=== PATIENT | male | born 1930 | race Caucasian/White ===

== ENCOUNTER 2016-02-19 20:18 | Inpatient (IN) | payer MEDICARE, BC ==
[2016-02-19] MEDS ORDERED: SODIUM CHLORIDE 0.9% 1,000 ML IV STA (20:23)
[2016-02-19] MEDS ORDERED: SODIUM CHLORIDE 0.9% 500 ML IV STA (20:23)
--- NOTE | 2016-02-19 20:39 | ED ---
General Adult HPI - General Source: patient, EMS, RN notes reviewed, old records reviewed Mode of arrival: EMS <Eliud Medel - Last Filed: 02/19/16 20:38> <Rico Gann - Last Filed: 02/20/16 01:16> - General Chief complaint: Abdominal Pain Stated complaint: Renal Failure Time Seen by Provider: 02/19/16 20:23 - History of Present Illness Initial comments: This is an 85-year-old male here for evaluation. This patient does reevaluation of weakness. Severe abdominal pain. Elevated blood pressure etc. Patient's a transfer patient from [facility] for evaluation of renal failure secondary to prostate enlargement causing urinary retention, patient did have 3 L or so out [place] prior prior facility. Patient coming here in no acute distress, feeling well (Eliud Medel) - Related Data Home Medications Medication Instructions Recorded Confirmed Ascorbic Acid [Vitamin C] 1,000 mg PO DAILY 02/19/16 02/19/16 Aspirin 325 mg PO DAILY 02/19/16 02/19/16 Calcium Carbonate [Tums] 500 mg PO DAILY 02/19/16 02/19/16 Ciprofloxacin HCl [Cipro] 500 mg PO Q12HR 02/19/16 02/19/16 Isosorbide Mononitrate ER [Imdur] 60 mg PO DAILY 02/19/16 02/19/16 Lovastatin [Mevacor] 10 mg PO DAILY 02/19/16 02/19/16 Nitroglycerin Sl Tabs [Nitrostat] 0.4 mg SUBLINGUAL Q5M PRN 02/19/16 02/19/16 Omeprazole 20 mg PO DAILY 02/19/16 02/19/16 Oxybutynin Chloride [Ditropan XL] 10 mg PO DAILY 02/19/16 02/19/16 Tamsulosin HCl [Flomax] 0.4 mg PO DAILY 02/19/16 02/19/16 Theophylline Anhydrous 400 mg PO DAILY 02/19/16 02/19/16 [Theophylline] Warfarin Sodium [Coumadin] 6 mg PO DAILY 02/19/16 02/19/16 Allergies Allergy/AdvReac Type Severity Reaction Status Date / Time atenolol Allergy Unknown Verified 02/19/16 20:47 diltiazem Allergy Unknown Verified 02/19/16 20:47 enalapril Allergy Unknown Verified 02/19/16 20:47 metoprolol [From Lopressor] Allergy Unknown Verified 02/19/16 20:47 Review of Systems ROS Other: All systems not noted in ROS Statement are negative. <Eliud Medel - Last Filed: 02/19/16 20:38> ROS Other: All systems not noted in ROS Statement are negative. <Rico Gann - Last Filed: 02/20/16 01:16> ROS Statement: Those systems with pertinent positive or pertinent negative responses have been documented in the HPI. General Exam General appearance: alert, in no apparent distress Head exam: Present: atraumatic, normocephalic, normal inspection Eye exam: Present: normal appearance, PERRL, EOMI. Absent: scleral icterus, conjunctival injection, periorbital swelling ENT exam: Present: normal exam, mucous membranes moist Neck exam: Present: normal inspection. Absent: tenderness, meningismus, lymphadenopathy Respiratory exam: Present: normal lung sounds bilaterally. Absent: respiratory distress, wheezes, rales, rhonchi, stridor Cardiovascular Exam: Present: regular rate, normal rhythm, normal heart sounds. Absent: systolic murmur, diastolic murmur, rubs, gallop, clicks GI/Abdominal exam: Present: soft, normal bowel sounds. Absent: distended, tenderness, guarding, rebound, rigid Extremities exam: Present: normal inspection, full ROM, normal capillary refill. Absent: tenderness, pedal edema, joint swelling, calf tenderness Back exam: Present: normal inspection Neurological exam: Present: alert, oriented X3, CN II-XII intact Psychiatric exam: Present: normal affect, normal mood Skin exam: Present: warm, dry, intact, normal color. Absent: rash <Eliud Medel - Last Filed: 02/19/16 20:38> Course <Eliud Medel - Last Filed: 02/19/16 20:38> <Rico Gann - Last Filed: 02/20/16 01:16> Vital Signs 02/19/16 02/19/16 02/19/16 20:25 21:43 22:32 Temperature Pulse Rate 80 82 82 Respiratory 16 18 16 Rate Blood Pressure 108/60 109/77 114/68 O2 Sat by Pulse 98 98 Oximetry 02/19/16 02/20/16 02/20/16 23:56 00:42 00:58 Temperature 97.3 F L Pulse Rate 84 81 Respiratory 16 18 Rate Blood Pressure 98/54 94/50 100/55 O2 Sat by Pulse 96 93 L Oximetry Agents imaging studies were reviewed from [facility] chest x-ray showed surgical changes with cardiomegaly and mild cephalization of the pulmonary vessel is present in him a CT abdomen was also he reviewed it with CT abdomen and pelvis was no free air under the diaphragm no acute intra-abdominal pathology was identified he status post cholecystectomy and no stones in the ureter or hydronephrosis noticed that to 5.5 mm focus of the center of high density in the left kidney and a large hiatal hernia noticed, noticed some degenerative changes in her lower lumbar spine (Rico Gann) - Reevaluation(s) Reevaluation #1: 02/19/16 20:39 Woke with transient physicianAsif paperwork overlooked (Eliud Medel) Medical Decision Making <Eliud Medel - Last Filed: 02/19/16 20:38> - Lab Data Result diagrams: 02/19/16 20:36 02/19/16 20:36 <Rico Gann - Last Filed: 02/20/16 01:16> - Medical Decision Making 85 male here for evaluation of post obstruction renal failure, symptoms improved , patient is fully place and can be discharged home (Eliud Medel) - Lab Data Lab Results 02/19/16 02/19/16 02/19/16 Range/Units 20:36 20:36 20:36 WBC 3.2 L (3.8-10.6) k/uL RBC 3.93 L (4.30-5.90) m/uL Hgb 12.0 L (13.0-17.5) gm/dL Hct 36.5 L (39.0-53.0) % MCV 92.9 (80.0-100.0) fL MCH 30.6 (25.0-35.0) pg MCHC 33.0 (31.0-37.0) g/dL RDW 13.5 (11.5-15.5) % Plt Count 113 L (150-450) k/uL Neutrophils % 67 % Lymphocytes % 19 % Monocytes % 10 % Eosinophils % 2 % Basophils % 1 % Neutrophils # 2.2 (1.3-7.7) k/uL Lymphocytes # 0.6 L (1.0-4.8) k/uL Monocytes # 0.3 (0-1.0) k/uL Eosinophils # 0.1 (0-0.7) k/uL Basophils # 0.0 (0-0.2) k/uL PT (9.0-12.0) sec INR (<1.1) Sodium 142 (137-145) mmol/L Potassium 4.1 (3.5-5.1) mmol/L Chloride 112 H (98-107) mmol/L Carbon Dioxide 17 L (22-30) mmol/L Anion Gap 13 mmol/L BUN 32 H (9-20) mg/dL Creatinine 2.19 H (0.66-1.25) mg/dL Est GFR (MDRD) Af Amer 35 (>60 ml/min/1.73 sqM) Est GFR (MDRD) Non-Af 29 (>60 ml/min/1.73 sqM) Glucose 94 (74-99) mg/dL Calcium 9.0 (8.4-10.2) mg/dL Phosphorus 3.7 (2.5-4.5) mg/dL Magnesium 2.1 (1.6-2.3) mg/dL Total Bilirubin 0.7 (0.2-1.3) mg/dL AST 25 (17-59) U/L ALT 32 (21-72) U/L Alkaline Phosphatase 64 (38-126) U/L Total Protein 5.8 L (6.3-8.2) g/dL Albumin 3.3 L (3.5-5.0) g/dL Urine Color Yellow Urine Appearance Clear (Clear) Urine pH 5.0 (5.0-8.0) Ur Specific Stanley 1.010 (1.001-1.035) Urine Protein 1+ H (Negative) Urine Glucose (UA) Negative (Negative) Urine Ketones 1+ H (Negative) Urine Blood Moderate H (Negative) Urine Nitrate Negative (Negative) Urine Bilirubin Negative (Negative) Urine Urobilinogen <2.0 (<2.0) mg/dL Ur Leukocyte Esterase Trace H (Negative) Urine RBC 138 H (0-5) /hpf Urine WBC 9 H (0-5) /hpf Ur Squamous Epith Cells 1 (0-4) /hpf Urine Bacteria Rare H (None) /hpf Urine Mucus Rare H (None) /hpf Urine Yeast (Budding) Rare H (None) /hpf 02/19/16 Range/Units 20:36 WBC (3.8-10.6) k/uL RBC (4.30-5.90) m/uL Hgb (13.0-17.5) gm/dL Hct (39.0-53.0) % MCV (80.0-100.0) fL MCH (25.0-35.0) pg MCHC (31.0-37.0) g/dL RDW (11.5-15.5) % Plt Count (150-450) k/uL Neutrophils % % Lymphocytes % % Monocytes % % Eosinophils % % Basophils % % Neutrophils # (1.3-7.7) k/uL Lymphocytes # (1.0-4.8) k/uL Monocytes # (0-1.0) k/uL Eosinophils # (0-0.7) k/uL Basophils # (0-0.2) k/uL PT 45.0 H (9.0-12.0) sec INR 4.6 (<1.1) Sodium (137-145) mmol/L Potassium (3.5-5.1) mmol/L Chloride (98-107) mmol/L Carbon Dioxide (22-30) mmol/L Anion Gap mmol/L BUN (9-20) mg/dL Creatinine (0.66-1.25) mg/dL Est GFR (MDRD) Af Amer (>60 ml/min/1.73 sqM) Est GFR (MDRD) Non-Af (>60 ml/min/1.73 sqM) Glucose (74-99) mg/dL Calcium (8.4-10.2) mg/dL Phosphorus (2.5-4.5) mg/dL Magnesium (1.6-2.3) mg/dL Total Bilirubin (0.2-1.3) mg/dL AST (17-59) U/L ALT (21-72) U/L Alkaline Phosphatase (38-126) U/L Total Protein (6.3-8.2) g/dL Albumin (3.5-5.0) g/dL Urine Color Urine Appearance (Clear) Urine pH (5.0-8.0) Ur Specific Stanley (1.001-1.035) Urine Protein (Negative) Urine Glucose (UA) (Negative) Urine Ketones (Negative) Urine Blood (Negative) Urine Nitrate (Negative) Urine Bilirubin (Negative) Urine Urobilinogen (<2.0) mg/dL Ur Leukocyte Esterase (Negative) Urine RBC (0-5) /hpf Urine WBC (0-5) /hpf Ur Squamous Epith Cells (0-4) /hpf Urine Bacteria (None) /hpf Urine Mucus (None) /hpf Urine Yeast (Budding) (None) /hpf Critical Care Time <Eliud Medel - Last Filed: 02/19/16 20:38> Total Critical Care Time: 35 <Rico Gann - Last Filed: 02/20/16 01:16> Critical Care Time: AARON is in transfer from [facility] and his labs well after midnight noticed that he has renal failure failure he has a quite a bit of hematuria and I noticed some metabolic acidosis his INR is quite elevated is 4.6 and his blood pressure was 90 systolic considering that the middle OF fluid bolus and an examination he was slightly diffusely tender in the lower abdomen did do a CT of abdomen without contrast since his creatinine is high and also Benadryl chest x-rays and computed tomography scan needs some more fluid resuscitation over to make sure he is not in any kind of congestive heart failure and obviously he is can be admission with the nephrology consult and he will go under Dr. Novak's service (Rico Gann) Disposition <Eliud Medel - Last Filed: 02/19/16 20:38> <Rico Gann - Last Filed: 02/20/16 01:16> Clinical Impression: Abdominal pain, Renal failure, Hematuria, Metabolic acidosis, Hypertension Disposition: ADMITTED IP TO THIS HOSP Referrals: Bhaskar Peña DO [Primary Care Provider] - 1-2 days
[2016-02-19 20:55] LABS: Basophils % (A) 1 %; CH 31.4; Eosinophils # (A) 0.1 k/uL (0-0.7); Eosinophils % (A) 2 %; HCT 36.5 % (39.0-53.0); HDW 2.98; Luc # (Auto) 0.05; Luc % (Auto) 2; Lymphocytes # (A) 0.6 k/uL (1.0-4.8); Lymphocytes % (A) 19 %; MCH 30.6 pg (25.0-35.0); MCV 92.9 fL (80.0-100.0); Mean Platelet Volume 9.3; Monocytes # (A) 0.3 k/uL (0-1.0); Monocytes % (A) 10 %; Neutrophils # (A) 2.2 k/uL (1.3-7.7); Neutrophils % (A) 67 %; RBC 3.93 m/uL (4.30-5.90); RDW 13.5 % (11.5-15.5); WBC 3.2 k/uL (3.8-10.6)
[2016-02-19 20:59] LABS: Appearance,Urine Clear (Clear); Bacteria,Urine Rare /hpf; Bilirubin,Urine Negative (Negative); Glucose,Urine (UA) Negative (Negative); Ketones,Urine 1+ (Negative); Leukocyte Esterase,Urine Trace (Negative); Mucus,Urine Rare /hpf; Nitrite,Urine Negative (Negative); Particle Count 1702; Protein,Urine 1+ (Negative); RBC,Urine 138 /hpf (0-5); Squamous Epithelial Cell,Urine 1 /hpf (0-4); UA Billing (MACRO vs. MICRO) MICRO; Urobilinogen,Urine <2.0 mg/dL (<2.0); WBC,Urine 9 /hpf (0-5)
[2016-02-19 21:11] LABS: Magnesium 2.1 mg/dL (1.6-2.3); Phosphorous 3.7 mg/dL (2.5-4.5); Potassium 4.1 mmol/L (3.5-5.1); Total Bilirubin 0.7 mg/dL (0.2-1.3); Total Protein 5.8 g/dL (6.3-8.2)
[2016-02-19 23:57] LABS: INR 4.6 (<1.1)
[2016-02-20] MEDS: SODIUM CHLORIDE 0.9% 1,000 ML IV SCH ×3 (01:17→20:01)
[2016-02-20] MEDS ORDERED: ONDANSETRON 4 MG/2 ML VIAL IVP PRN (01:46)
[2016-02-20] MEDS ORDERED: NALOXONE 0.4 MG/ML 1 ML VIAL IV PRN (01:46)
[2016-02-20] MEDS ORDERED: NITROGLYCERIN SL TABS 0.4 MG TAB SUBLINGUAL PRN (01:55)
[2016-02-20 03:04] LABS: VBG PH 7.37 (7.31-7.41)
[2016-02-20 03:56] VITALS: BMI 28.8
[2016-02-20] MEDS ORDERED: TAMSULOSIN 0.4 MG CAP.ER.24H PO SCH (09:00)
[2016-02-20] MEDS ORDERED: OXYBUTYNIN 10 MG TAB.ER.24 PO SCH (09:00)
[2016-02-20] MEDS: ASPIRIN 325 MG TAB PO SCH (09:16)
[2016-02-20] MEDS: ISOSORBIDE MONONITRATE ER 60 MG TAB.ER.24H PO SCH (09:18)
[2016-02-20] MEDS: ASCORBIC ACID 500 MG TAB PO SCH (09:18)
[2016-02-20] MEDS: PANTOPRAZOLE 40 MG TABLET PO SCH (09:18)
[2016-02-20] MEDS: ATORVASTATIN 10 MG TAB PO SCH (09:18)
[2016-02-20] MEDS: THEOPHYLLINE 24 HOUR 400 MG CAP.ER.24H PO SCH (09:18)
[2016-02-20] MEDS: CALCIUM CARBONATE 500 MG CHEWABLE PO SCH (09:18)
--- NOTE | 2016-02-20 10:21 | US ---
EXAMINATION TYPE: US carotid duplex BILAT DATE OF EXAM: 02/20/2016 10:05 AM COMPARISON: NONE CLINICAL HISTORY: Dizziness. EXAM MEASUREMENTS: RIGHT: Peak Systolic Velocity (PSV) cm/sec ----- Right CCA: 59.5 ----- Right ICA: 54.5 ----- Right ECA: 71.8 ICA/CCA ratio: 0.9 RIGHT: End Diastole cm/sec ----- Right CCA: 10.0 ----- Right ICA: 13.6 ----- Right ECA: 0.0 LEFT: Peak Systolic Velocity (PSV) cm/sec ----- Left CCA: 59.4 ----- Left ICA: 56.1 ----- Left ECA: 56.0 ICA/CCA ratio: 0.9 LEFT: End Diastole cm/sec ----- Left CCA: 13.5 ----- Left ICA: 25.3 ----- Left ECA: 0.0 VERTEBRALS (direction of flow): Right Vertebral: Antegrade Left Vertebral: Antegrade TECHNOLOGIST IMPRESSION: No significant stenosis seen, exam somewhat technically difficult due to pa tients SOB Grayscale images show mild eccentric plaque at bilateral carotid bulbs. Velocity measurements and rat ios in visualized portion of both internal carotid arteries is within normal limits. IMPRESSION: No hemodynamically significant stenosis identified in either internal carotid artery
--- NOTE | 2016-02-20 10:23 | US ---
EXAMINATION TYPE: US renals and bladder DATE OF EXAM: 02/20/2016 9:48 AM COMPARISON: Outside CT abdomen and pelvis from one day earlier CLINICAL HISTORY: Elevated Creatinine . EXAM MEASUREMENTS: Right Kidney: 9.5 x 3.9 x 4.8 Left Kidney: 10.7 x 4.0 x 4.8 Post Void Residual Volume: N/A ANATOMY: TECHNOLOGIST IMPRESSION: Patient SOB and unable to hold his breath making exam somewhat technically difficult and limited Right Kidney: No hydronephrosis or masses seen Left Kidney: No hydronephrosis or masses seen Bladder: Tapia catheter is within bladder making evaluation suboptimal. There is no evidence for hydronephrosis at this point in time. No masses are identified in either kid brisa on images saved. IMPRESSION: No hydronephrosis is evident bilaterally on ultrasound. Normal Values: Renal Length = 9 - 12cm Bladder Wall: < 0.3cm
--- NOTE | 2016-02-20 12:37 | ECHOF ---
Referral Reason:lv fxn MEASUREMENTS -------- HEIGHT: 170.2 cm WEIGHT: 83.5 kg BP: 107/78 RVIDd: 2.9 cm (< 3.3) IVSd: 1.6 cm (0.6 - 1.1) LVIDd: 4.8 cm (3.9 - 5.3) LVPWd: 1.4 cm (0.6 - 1.1) IVSs: 2.1 cm LVIDs: 3.3 cm LVPWs: 1.6 cm LA Diam: 4.0 cm (2.7 - 3.8) LAESV Index (A-L): 53.08 ml/m Ao Diam: 3.6 cm (2.0 - 3.7) MV EXCURSION: 15.965 mm (> 18.000) MV EF SLOPE: 85 mm/s (70 - 150) EPSS: 1.1 cm AV maxP.09 mmHg AV meanP.64 mmHg RAP: 5.00 mmHg RVSP: 17.25 mmHg FINDINGS -------- This was a technically adequate study. The left ventricular size is normal. There is moderate concentric left ventricular hypertrophy. Overall left ventricular systolic function is mild-moderately impaired with, an EF between 40 - 45 %. The right ventricle is normal in size. LA is severely dilated >40 ml/m2 The right atrium is normal in size. Aortic valve is trileaflet and is severely thickened. There is moderate aortic stenosis present. Peak/mean gradient across the Aortic Valve is 51.09mmHg / 36.64mmHg. The mitral valve leaflets are mildly thickened. Mild mitral annular calcification present. Mild mitral regurgitation is present. Mild tricuspid regurgitation present. Right ventricular systolic pressure is normal at < 35 mmHg. The pulmonic valve was not well visualized. The aortic root size is normal. There is no pericardial effusion. CONCLUSIONS -------- 1. This was a technically adequate study. 2. Peak/mean gradient across the Aortic Valve is 51.09mmHg / 36.64mmHg. 3. The mitral valve leaflets are mildly thickened. 4. Mild mitral annular calcification present. 5. Mild mitral regurgitation is present. 6. Mild tricuspid regurgitation present. 7. Right ventricular systolic pressure is normal at < 35 mmHg. 8. The pulmonic valve was not well visualized. 9. The aortic root size is normal. 10. There is no pericardial effusion. 11. The left ventricular size is normal. 12. There is moderate concentric left ventricular hypertrophy. 13. Overall left ventricular systolic function is mild-moderately impaired with, an EF between 40 - 45 %. 14. The right ventricle is normal in size. 15. LA is severely dilated >40 ml/m2 16. The right atrium is normal in size. 17. Aortic valve is trileaflet and is severely thickened. 18. There is moderate aortic stenosis present. MEDICAL CLERK: Silvia Powell RDCS
--- NOTE | 2016-02-20 12:41 | HP ---
DATE OF ADMISSION: CHIEF COMPLAINT: Obstructive uropathy and renal failure. HISTORY OF PRESENT ILLNESS: This is the first admission for this 85-year-old white male. He started to develop what he describes as "edema" went to the hospital where he was found to have distended bladder. Tapia catheter was ( ) and apparently a large amount of urine was drained. He was then sent here. Apparently his renal function is abnormal. He is awake, alert and oriented. REVIEW OF SYSTEMS: He denies any headaches, neurologic deficits, CVAs, TIAs, change in vision or hearing, cough, hemoptysis, sputum production, orthopnea, PND, murmurs, rheumatic fever, heart disease, abdominal pain, nausea, vomiting, hematemesis, melena, hematochezia, hematuria, etc. Past medical history, family history and personal and social histories reveal that he has had pulmonary emboli on both sides in the past. He is apparently on Coumadin. Surgically, he had open-heart surgery. He has had bilateral inguinal herniorrhaphies. He does not smoke. PHYSICAL EXAMINATION: Blood pressure is 148/88 with a pulse of 104, respirations of 39. He is afebrile. GENERAL: He appears to be well developed, well nourished, in no distress. Skin color is normal. Skin is warm and dry. Lymph nodes are not enlarged. Head, ears, eyes, nose, mouth, and throat were normal. Neck veins not distended. Thyroid is not enlarged. Chest is fairly clear. Cardiac exam demonstrates cardiac murmur ( ) systole. ABDOMEN: Soft and nontender without any visceromegaly or masses. EXTREMITIES: Normal. Tapia catheter is in place. IMPRESSION: 1. Obstructive uropathy. 2. Secondary renal failure. 3. History of pulmonary emboli. 4. Coronary artery disease. 5. Cardiac murmur. PLAN: 1. Bed rest. 2. IV fluids. 3. Follow renal function to see if it improves after decompression of the bladder.
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
[2016-02-20] MEDS: TAMSULOSIN 0.4 MG CAP.ER.24H PO SCH (20:01)
[2016-02-20] MEDS: SODIUM BICARBONATE TAB 650 MG TAB PO SCH ×2 (20:01→23:00)
[2016-02-21] MEDS: SODIUM CHLORIDE 0.9% 1,000 ML IV SCH (06:05)
[2016-02-21 08:04] LABS: Basophils % (A) 1 %; CH 30.8; CHCM 32.6; Eosinophils # (A) 0.3 k/uL (0-0.7); Eosinophils % (A) 7 %; HCT 38.9 % (39.0-53.0); HDW 3.04; HGB 12.7 gm/dL (13.0-17.5); Luc % (Auto) 3; Lymphocytes # (A) 1.2 k/uL (1.0-4.8); Lymphocytes % (A) 31 %; MCH 30.8 pg (25.0-35.0); MCHC 32.5 g/dL (31.0-37.0); MCV 94.8 fL (80.0-100.0); Mean Platelet Volume 8.2; Monocytes # (A) 0.3 k/uL (0-1.0); Monocytes % (A) 7 %; Neutrophils % (A) 53 %; RDW 13.2 % (11.5-15.5); WBC 3.9 k/uL (3.8-10.6); WBC (Perox) 4.31
[2016-02-21] MEDS: ASCORBIC ACID 500 MG TAB PO SCH (08:34)
[2016-02-21] MEDS: PANTOPRAZOLE 40 MG TABLET PO SCH (08:34)
[2016-02-21] MEDS: ATORVASTATIN 10 MG TAB PO SCH (08:34)
[2016-02-21] MEDS: ASPIRIN 325 MG TAB PO SCH (08:34)
[2016-02-21] MEDS: CALCIUM CARBONATE 500 MG CHEWABLE PO SCH (08:35)
[2016-02-21] MEDS: ISOSORBIDE MONONITRATE ER 60 MG TAB.ER.24H PO SCH (08:35)
[2016-02-21] MEDS: SODIUM BICARBONATE TAB 650 MG TAB PO SCH ×4 (08:35→21:04)
[2016-02-21] MEDS: THEOPHYLLINE 24 HOUR 400 MG CAP.ER.24H PO SCH (08:35)
[2016-02-21] MEDS: TAMSULOSIN 0.4 MG CAP.ER.24H PO SCH ×2 (08:35→21:04)
[2016-02-21 08:36] LABS: Calcium 8.5 mg/dL (8.4-10.2); Potassium 4.2 mmol/L (3.5-5.1); Total Bilirubin 0.7 mg/dL (0.2-1.3); Total Protein 5.3 g/dL (6.3-8.2)
--- NOTE | 2016-02-21 11:27 | P.PN ---
Subjective The patient was seen in consultation yesterday for urine retention. This is large volume urine retention of 3 L. The patient has been having obstructive voiding symptoms for several months. He is placed on Flomax and then on ditropan by his urologist in [facility]. His creatinine has come down to 1.5. He is feeling better. The PSA is pending. He will need the catheter in for at least 10 days to 2 weeks before a voiding trial due to the large volume of urine retention. Patient understands this. I will see him in the office in about 10 days to 2 weeks for a voiding trial. The visiting nurse will remove the catheter prior to his office visit. Objective - Vital Signs Vital signs: Vital Signs Temp 97.5 F L 02/21/16 07:00 Pulse 96 02/21/16 07:00 Resp 20 02/21/16 07:00 BP 122/77 02/21/16 07:00 Pulse Ox 94 L 02/21/16 07:00 Intake & Output 02/20/16 02/21/16 02/21/16 18:59 06:59 18:59 Intake Total 800 Output Total 1100 Balance 800 -1100 Weight 90 kg Intake: IV 800 Sodium Chloride 0.9% 1, 800 000 ml @ 100 mls/hr IV . Q10H DAMIAN Rx#:[id number] Output: Urine 1100 Other: Voiding Method Indwelling Catheter Indwelling Catheter # Voids 1 - Labs CBC & Chem 7: 02/21/16 07:38 02/21/16 07:38 Labs: Abnormal Lab Results - Last 24 Hours (Table) 02/21/16 02/21/16 Range/Units 07:38 07:38 RBC 4.10 L (4.30-5.90) m/uL Hgb 12.7 L (13.0-17.5) gm/dL Hct 38.9 L (39.0-53.0) % Plt Count 114 L (150-450) k/uL Chloride 112 H (98-107) mmol/L Carbon Dioxide 19 L (22-30) mmol/L BUN 25 H (9-20) mg/dL Creatinine 1.53 H (0.66-1.25) mg/dL Total Protein 5.3 L (6.3-8.2) g/dL Albumin 3.1 L (3.5-5.0) g/dL
[2016-02-21] MEDS ORDERED: BISACODYL 5 MG TABLET.DR PO STA ×2 (12:23→12:24)
[2016-02-21] MEDS: DOCUSATE 100 MG CAP PO SCH ×2 (12:47→21:04)
[2016-02-21] MEDS: POLYETHYLENE GLYCOL 3350 17 GM POWD.PACK PO SCH (12:47)
--- NOTE | 2016-02-21 14:39 | PN ---
CHIEF COMPLAINT: Obstructive uropathy. HISTORY OF PRESENT ILLNESS: This gentleman is doing fairly well, but he got confused during the night and this is probably delirium. He is doing fine now. He has had no chest pain, chills, and abdominal pain, etc. PHYSICAL EXAM: The chest is clear and cardiac exam is normal and the abdomen is soft, nontender. The extremities are normal. He is a little bit short of breath. IMPRESSION: 1. Delirium. 2. Shortness of breath. 3. Constipation. 4. Obstructive uropathy. PLAN: 1. Treat for constipation. 2. Lab work looking for other etiologies of delirium.
[2016-02-21] MEDS ORDERED: LACTULOSE 20 GM/30 ML CUP PO ONE (15:05)
--- NOTE | 2016-02-21 16:43 | P.PN ---
Subjective This is a 85-year-old male seen in consultation because of obstructive nephropathy and acute kidney injury. He Had a Catheter Placed Is Urine Output Is Improving. He Continues to Feel Somewhat Cold but No Fever Chills No Nausea Vomiting Diarrhea Abdominal Pain. His Creatinine Is Improving and His Urine Output Is Fair. He Was Admitted with the Following; This is an 85-year-old male who was transferred from [facility] with obstructive nephropathy. He went there because of difficulty in urination and bladder distention. A [place] cathetersupposedly large amounts of urine were drained. He has been having problem with urination for the last 2-3 months and has been seeing a urologist outpatient. His had 2 doses of Cipro once 2015 and then more recently on 02/13/2016. He also claimed that he has been taking some Motrin because of pain in his lower abdomen. No fever chills although he felt somewhat cold and warm prior to that hospitalization. No nausea vomiting diarrhea is constipated Past medical history significant for hypertension in the past came off of medication may be 7-8 years ago. He also had coronary artery bypass graft about 11 years ago. No further chest pain. No history of diabetes. Is not aware of any kidney disease. Other than this he is also noted to have had multiple DVTs and PEs Objective - Vital Signs Vital signs: Vital Signs Temp 97.7 F 02/21/16 15:00 Pulse 95 02/21/16 15:00 Resp 18 02/21/16 15:00 BP 137/74 02/21/16 15:00 Pulse Ox 95 02/21/16 15:00 Intake & Output 02/20/16 02/21/16 02/21/16 18:59 06:59 18:59 Intake Total 800 Output Total 1100 600 Balance 800 -1100 -600 Weight 90 kg Intake: IV 800 Sodium Chloride 0.9% 1, 800 000 ml @ 100 mls/hr IV . Q10H DAMIAN Rx#:[id number] Output: Urine 1100 600 Other: Voiding Method Indwelling Catheter Indwelling Catheter # Voids 1 On exam patient is awake alert oriented comfortable HEENT examined no JVP neck is supple no facial asymmetry or lungs are clear to auscultation percussion good air entry bilaterally Heart sounds unremarkable no murmur rub gallop. Abdomen soft nontender no masses felt. Extremity exam reveals no edema Neurologically awake alert oriented. No focal motor deficits - Labs CBC & Chem 7: 02/21/16 07:38 02/21/16 07:38 Labs: Abnormal Lab Results - Last 24 Hours (Table) 02/21/16 02/21/16 Range/Units 07:38 07:38 RBC 4.10 L (4.30-5.90) m/uL Hgb 12.7 L (13.0-17.5) gm/dL Hct 38.9 L (39.0-53.0) % Plt Count 114 L (150-450) k/uL Chloride 112 H (98-107) mmol/L Carbon Dioxide 19 L (22-30) mmol/L BUN 25 H (9-20) mg/dL Creatinine 1.53 H (0.66-1.25) mg/dL Total Protein 5.3 L (6.3-8.2) g/dL Albumin 3.1 L (3.5-5.0) g/dL Assessment and Plan Plan: Impression. 1. Acute kidney injury secondary to obstructive nephropathy secondary to prostatism. Creatinine is 2.19 as of yesterday, and is down to 1.53 this morning 2. History of recurrent DVTs and PEs. Cause not clear. Patient was on Coumadin at home. Off of Coumadin but his PT/INR was 4.6 as of day before yesterday 02/19/2016 3. History of coronary artery bypass graft. 4. History of hypertension that needed medication for a few years and came off of medication may be 7 years ago. 5. Mild degree of non-gap metabolic acidosis secondary to acute kidney injury. His bicarb is up to 19 6. Constipation for more than a week has not responded to lactulose Dulcolax and Colace. Recommendation. We'll try mineral oil enema if in 2-3 hours he does not respond to the medication for his constipation. Redo PT/INR stat today and relayed this message to the primary physician regarding resumption of his and accommodation. Continue IV fluids. Normal saline at 100 and hour is sufficient. Continue sodium bicarb 650 4 times a day for his acidosis which is expected to improve in a few days
[2016-02-21 17:00] LABS: INR 3.1 (<1.1); Prothrombin Time 29.6 sec (9.0-12.0)
[2016-02-21] MEDS: ACETAMINOPHEN TAB 325 MG TAB PO PRN (22:00)
[2016-02-22] MEDS: ACETAMINOPHEN TAB 325 MG TAB PO PRN (05:44)
[2016-02-22 08:18] VITALS: BP 119/75; PULSE 89; RESP 18; TEMP 96.1
[2016-02-22] MEDS: ASCORBIC ACID 500 MG TAB PO SCH (08:24)
[2016-02-22] MEDS: ISOSORBIDE MONONITRATE ER 60 MG TAB.ER.24H PO SCH (08:24)
[2016-02-22] MEDS: PANTOPRAZOLE 40 MG TABLET PO SCH (08:24)
[2016-02-22] MEDS: ATORVASTATIN 10 MG TAB PO SCH (08:24)
[2016-02-22] MEDS: ASPIRIN 325 MG TAB PO SCH (08:24)
[2016-02-22] MEDS: CALCIUM CARBONATE 500 MG CHEWABLE PO SCH (08:24)
[2016-02-22] MEDS: DOCUSATE 100 MG CAP PO SCH (08:24)
[2016-02-22] MEDS: SODIUM BICARBONATE TAB 650 MG TAB PO SCH ×2 (08:25→13:24)
[2016-02-22] MEDS: THEOPHYLLINE 24 HOUR 400 MG CAP.ER.24H PO SCH (08:25)
[2016-02-22] MEDS: TAMSULOSIN 0.4 MG CAP.ER.24H PO SCH (08:25)
[2016-02-22] MEDS: POLYETHYLENE GLYCOL 3350 17 GM POWD.PACK PO SCH (08:27)
[2016-02-22 09:14] LABS: INR 2.2 (<1.1); Prothrombin Time 21.2 sec (9.0-12.0)
[2016-02-22 09:41] LABS: ALT 38 U/L (21-72); AST 31 U/L (17-59); Alkaline Phosphatase 80 U/L (38-126); Anion Gap 9 mmol/L; Blood Urea Nitrogen 16 mg/dL (9-20); Calcium 8.7 mg/dL (8.4-10.2); Carbon Dioxide 23 mmol/L (22-30); Chloride 109 mmol/L (98-107); Glucose 89 mg/dL (74-99); Non-African American GFR(MDRD) 51 (>60 ml/min/1.73 sqM); Potassium 4.2 mmol/L (3.5-5.1); Sodium 141 mmol/L (137-145); Total Bilirubin 0.8 mg/dL (0.2-1.3); Total Protein 5.8 g/dL (6.3-8.2)
--- NOTE | 2016-02-22 11:02 | P.DS ---
Providers Date of admission: 02/20/16 00:45 Expected date of discharge: 02/22/16 Attending physician: London Novak Consults: 02/20/16 01:46 Consult Physician Stat Consulting Provider: Cara Singh Consult Reason/Comments: Renal failure Do you want consulting provider notified?: Yes 02/20/16 12:17 Consult Physician Stat Consulting Provider: Perry Granados Consult Reason/Comments: bph Do you want consulting provider notified?: Yes Primary care physician: Bhaskar [facility] Course: 85-year-old male who was transferred from [facility] for evaluation of abdominal pain renal failure secondary to prostate enlargement causing urinary retention. Patient was transferred for the above-mentioned symptoms Rain catheter supposedly was inserted at the facility with a large amount urine drained. Patient reports having urinary retention for the past several months. Patient stated he did see a urologist in the outpatient setting in [facility]. Patient states he's had 2 doses of Cipro the last one in 2015 and more recently and 02/13/2016. He states he thought he was on the Cipro for urinary tract infection. Patient stated he had no fever chills. There was no nausea vomiting. Patient does complain of constipation. Patient was seen by nephrology and urology service. Patient was treated for acute kidney injury felt to be due to obstructive nephropathy. [place] to be secondary to prostatitis. Patient has a history reoccurring DVTs and PEs and was on Coumadin at home on Cipro. When patient was admitted the INR was elevated to 4. Coumadin was held. The urine culture was negative the creatinine on admission was 2.1 on the day of discharge was 1. Dr. Steele did see patient on consultation for the urinary retention. Patient has been having obstructive voiding symptoms per the past several months. Patient reportedly is placed on Flomax in the outpatient setting then on Ditropan by his urologist and the [facility]. Dr. Steele recommended the patient being placed on Flomax. And that the patient needed an indwelling Rain catheter for at least 2 weeks to be seen in the urologist's office in 10-2 weeks for a voiding trial in the visiting nurse can remove the Rain catheter prior to the office visit. This was discussed with the patient and the patient's son at the bedside. Patient was felt to be hemodynamically stable and appropriate proceed with a discharge to home Impression discharge diagnosis Present on admission acute kidney injury secondary to obstructive nephropathy due to prostatitis History reoccurring DVTs and PEs on Coumadin at home Present on admission coagulopathy Coumadin induced History of coronary artery disease prior coronary artery bypass grafting history of hypertension Mild degree of non-gap metabolic acidosis secondary to acute kidney injury Esophageal reflux Prostate disorder Present on admission acute urine retention secondary to BPH and ditropan Present on admission hematuria due to large volume urine retention aggravated by coagulopathy Coumadin induced Chronic physical debility Chronic constipation No evidence of a UTI urine culture negative The above dictated assessment and findings were discussed with dr novak Impression and the plan of care have been dictated as directed. Lisa Mccullough nurse practitioner acting as a scribe for dr novak. Plan - Discharge Summary New Discharge Prescriptions: Docusate [Colace] 100 mg PO BID #60 cap Tamsulosin [Flomax] 0.4 mg PO BID #60 cap.er.24h Discharge Medication List Ascorbic Acid [Vitamin C] 1,000 mg PO DAILY 02/19/16 [History] Aspirin 325 mg PO DAILY 02/19/16 [History] Calcium Carbonate [Tums] 500 mg PO DAILY 02/19/16 [History] Isosorbide Mononitrate ER [Imdur] 60 mg PO DAILY 02/19/16 [History] Nitroglycerin Sl Tabs [Nitrostat] 0.4 mg SUBLINGUAL Q5M PRN 02/19/16 [History] Omeprazole 20 mg PO DAILY 02/19/16 [History] Theophylline Anhydrous [Theophylline] 400 mg PO DAILY 02/19/16 [History] Warfarin Sodium [Coumadin] 6 mg PO DAILY 02/19/16 [History] Docusate [Colace] 100 mg PO BID #60 cap 02/22/16 [Rx] Sodium Bicarbonate Tab 650 mg PO QID #0 tab 02/22/16 [Rx] Tamsulosin [Flomax] 0.4 mg PO BID #60 cap.er.24h 02/22/16 [Rx] Follow up Appointment(s)/Referral(s): Bhaskar Peña DO [Primary Care Provider] - 1-2 days Geovany Steele MD [STAFF PHYSICIAN] - 2 Weeks (home care to [facility] on day of dr steele visit) Activity/Diet/Wound Care/Special Instructions: [facility] home care (#[phone]) Leave the indwelling Rain catheter in place the visiting nurse from the home care agency is to remove the Rain catheter 24 hours prior to follow-up visit with the urologist. Indwelling Rain catheter to be left in place for at least 2 weeks Discharge Disposition: HOME WITH HOME HEALTH SERVICES
--- NOTE | 2016-02-22 19:22 | PN ---
DATE OF SERVICE: 02/22/2016 CHIEF COMPLAINT: Renal failure and obstructive uropathy. HISTORY OF PRESENT ILLNESS: The gentleman is doing well and he has no problems and he can probably go home. PHYSICAL EXAMINATION: CHEST: Clear. CARDIAC: Normal. ABDOMEN: Soft, nontender. IMPRESSION: 1. Obstructive uropathy. 2. Benign prostatic hypertrophy. 3. Acute renal failure. PLAN: Possibly home today, and this will be arranged by the nurse practitioner.
== END 2016-02-22 14:41 | disposition home health service (06) | DRG 683 ==
LOC: EC 20:18 → 4MS4W 02-20 00:45
PROVIDERS: ADMIT Family Medicine; ATTEND Family Medicine
PROC: 0T9B70Z Drainage of Bladder with Drainage Device, Via Natural or Artificial Opening (ICD-10-PCS; principal; 2016-02-22)
DX: N17.8 Other acute kidney failure (principal); E87.2 Acidosis; I11.9 Hypertensive heart disease without heart failure; R31.9 Hematuria, unspecified; N13.8 Other obstructive and reflux uropathy; Z95.1 Presence of aortocoronary bypass graft; T44.3X5A Adverse effect of other parasympatholytics [anticholinergics and antimuscarinics] and spasmolytics, initial encounter; T45.515A Adverse effect of anticoagulants, initial encounter; I25.10 Atherosclerotic heart disease of native coronary artery without angina pectoris; K59.09 Other constipation; K21.9 Gastro-esophageal reflux disease without esophagitis; I25.2 Old myocardial infarction; R53.1 Weakness; N40.1 Benign prostatic hyperplasia with lower urinary tract symptoms; R33.8 Other retention of urine; N41.9 Inflammatory disease of prostate, unspecified; R10.9 Unspecified abdominal pain; R41.0 Disorientation, unspecified; R06.02 Shortness of breath; H91.90 Unspecified hearing loss, unspecified ear; M19.90 Unspecified osteoarthritis, unspecified site; R01.1 Cardiac murmur, unspecified; M51.36 Other intervertebral disc degeneration, lumbar region; Z88.8 Allergy status to other drugs, medicaments and biological substances; Z87.81 Personal history of (healed) traumatic fracture; Z87.01 Personal history of pneumonia (recurrent); Z86.711 Personal history of pulmonary embolism; Z87.828 Personal history of other (healed) physical injury and trauma; Z86.718 Personal history of other venous thrombosis and embolism; Z87.442 Personal history of urinary calculi; Z90.49 Acquired absence of other specified parts of digestive tract; Z79.82 Long term (current) use of aspirin; Z83.3 Family history of diabetes mellitus; Z79.01 Long term (current) use of anticoagulants; Z79.2 Long term (current) use of antibiotics; Z79.899 Other long term (current) drug therapy
CPT/HCPCS: 36415; 42999; 51702; 76770; 80053; 81001; 82803; 83735; 84100; 84153; 84154; 85025; 85610; 87086; 93005; 93306; 93880; 94760; 96360; 96361; 99285; 99291

== ENCOUNTER 2016-02-24 16:53 | Inpatient (IN) | payer MEDICARE, BC ==
[2016-02-24] MEDS ORDERED: FUROSEMIDE 10 MG/ML 4 ML VIAL IV STA (17:27)
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
[2016-02-24 17:54] LABS: Basophils % (A) 1 %; CH 31.1; CHCM 33.8; Eosinophils # (A) 0.2 k/uL (0-0.7); Eosinophils % (A) 7 %; HCT 37.1 % (39.0-53.0); HDW 3.14; HGB 12.4 gm/dL (13.0-17.5); Luc # (Auto) 0.09; Luc % (Auto) 3; Lymphocytes # (A) 0.7 k/uL (1.0-4.8); Lymphocytes % (A) 21 %; MCHC 33.5 g/dL (31.0-37.0); MCV 92.6 fL (80.0-100.0); Mean Platelet Volume 8.5; Monocytes # (A) 0.3 k/uL (0-1.0); Monocytes % (A) 8 %; Neutrophils # (A) 2.1 k/uL (1.3-7.7); Neutrophils % (A) 60 %; RBC 4.01 m/uL (4.30-5.90); RDW 13.3 % (11.5-15.5); WBC 3.4 k/uL (3.8-10.6)
--- NOTE | 2016-02-24 17:54 | XR ---
EXAMINATION TYPE: XR chest 1V portable DATE OF EXAM: 02/24/2016 5:49 PM Comparison: 02/19/2016 Clinical History: 85-year-old male altered mental status and fluid retention Findings: Heart is mildly enlarged. Median sternotomy wires are present with post-CABG changes in the mediastin um. Diffuse vascular prominence and interstitial opacities. Some hazy bibasilar densities are also pr esent. Impression: Correlate for CHF with pulmonary vascular congestion/interstitial edema and trace effusions.
[2016-02-24 18:04] LABS: ALT 37 U/L (21-72); AST 32 U/L (17-59); Alkaline Phosphatase 79 U/L (38-126); Anion Gap 7 mmol/L; Blood Urea Nitrogen 22 mg/dL (9-20); Calcium 8.6 mg/dL (8.4-10.2); Carbon Dioxide 24 mmol/L (22-30); Chloride 109 mmol/L (98-107); Glucose 108 mg/dL (74-99); Non-African American GFR(MDRD) 53 (>60 ml/min/1.73 sqM); Potassium 4.5 mmol/L (3.5-5.1); Sodium 140 mmol/L (137-145); Total Bilirubin 0.4 mg/dL (0.2-1.3); Total Protein 5.1 g/dL (6.3-8.2)
[2016-02-24 18:08] LABS: INR 1.4 (<1.1); Prothrombin Time 14.1 sec (9.0-12.0)
[2016-02-24 18:13] LABS: Appearance,Urine Clear (Clear); Bacteria,Urine Rare /hpf; Bilirubin,Urine Negative (Negative); Glucose,Urine (UA) Negative (Negative); Ketones,Urine Negative (Negative); Leukocyte Esterase,Urine Trace (Negative); Mucus,Urine Rare /hpf; Nitrite,Urine Negative (Negative); PH, Urine 7.5 (5.0-8.0); Particle Count 2642; Protein,Urine 1+ (Negative); RBC,Urine >182 /hpf (0-5); Specific Gravity,Urine 1.011 (1.001-1.035); UA Billing (MACRO vs. MICRO) MICRO; Urobilinogen,Urine <2.0 mg/dL (<2.0); WBC,Urine 8 /hpf (0-5)
[2016-02-24 18:18] LABS: Creatine Kinase MB 1.3 ng/mL (0.0-2.4)
[2016-02-24 18:21] LABS: Troponin I 0.24 ng/mL (0.000-0.034)
--- NOTE | 2016-02-24 18:24 | CT ---
EXAMINATION TYPE: CT brain wo con DATE OF EXAM: 02/24/2016 6:09 PM COMPARISON: NONE HISTORY: 85-year-old male altered mental status and weakness TECHNIQUE: Examination was done in axial plane without intravenous contrast. Coronal and sagittal reconstructio ns performed. CT DLP: 1072.3 mGycm Automated exposure control for dose reduction was used. FINDINGS: There is no evidence of acute intracranial hemorrhage, acute ischemic changes, mass, mass-effect, or extra-axial fluid collection. There is no effacement of cerebral sulci or basal subarachnoid cister ns. There is no hydrocephalus. There is no midline shift. [place]-white matter distinction is preserv ed. There is mild generalized supratentorial volume loss with moderate patchy periventricular and deep wh ite matter hypodensities. Encephalomalacia within the right frontal lobe. Benign basal ganglia calcif ications are noted. Paranasal sinuses and mastoid air cells are well pneumatized. Orbits and globes are intact. IMPRESSION: No acute intracranial abnormality seen. Mild atrophy and moderate changes of chronic small vessel isc hemic disease. 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
[2016-02-24] MEDS ORDERED: NALOXONE 0.4 MG/ML 1 ML VIAL IV PRN (19:16)
[2016-02-24] MEDS ORDERED: ACETAMINOPHEN TAB 325 MG TAB PO PRN (19:16)
[2016-02-24] MEDS ORDERED: NITROGLYCERIN SL TABS 0.4 MG TAB SUBLINGUAL PRN (19:26)
[2016-02-24] MEDS: SODIUM CHLORIDE 0.45% 1,000 ML IV SCH (21:03)
[2016-02-24] MEDS: WARFARIN 3 MG TAB PO SCH (21:03)
[2016-02-24] MEDS: ENOXAPARIN 80 MG/0.8 ML SYRINGE SQ SCH (21:04)
[2016-02-24] MEDS: DOCUSATE 100 MG CAP PO SCH (21:04)
[2016-02-24] MEDS: FUROSEMIDE 10 MG/ML 4 ML VIAL IV SCH (21:04)
[2016-02-24] MEDS: TAMSULOSIN 0.4 MG CAP.ER.24H PO SCH (21:04)
[2016-02-24 21:33] LABS: INR 1.4 (<1.1); Prothrombin Time 13.7 sec (9.0-12.0)
[2016-02-24 21:43] LABS: Creatine Kinase MB 1.3 ng/mL (0.0-2.4)
[2016-02-24] MEDS: traZODone HCL 50 MG TAB PO PRN (23:33)
[2016-02-25 05:48] LABS: Basophils % (A) 1 %; CH 31.1; CHCM 33.8; Eosinophils # (A) 0.3 k/uL (0-0.7); Eosinophils % (A) 9 %; HCT 36.5 % (39.0-53.0); HDW 3.12; HGB 12.2 gm/dL (13.0-17.5); Luc # (Auto) 0.05; Luc % (Auto) 2; Lymphocytes # (A) 0.7 k/uL (1.0-4.8); Lymphocytes % (A) 22 %; MCHC 33.5 g/dL (31.0-37.0); MCV 92.5 fL (80.0-100.0); Monocytes # (A) 0.3 k/uL (0-1.0); Monocytes % (A) 9 %; Neutrophils # (A) 1.9 k/uL (1.3-7.7); Neutrophils % (A) 58 %; RBC 3.95 m/uL (4.30-5.90); RDW 13.5 % (11.5-15.5); WBC 3.4 k/uL (3.8-10.6); WBC (Perox) 3.52
[2016-02-25 05:58] LABS: Calcium 8.8 mg/dL (8.4-10.2); Potassium 3.8 mmol/L (3.5-5.1)
[2016-02-25 06:32] LABS: INR 1.5 (<1.1); Prothrombin Time 14.6 sec (9.0-12.0)
[2016-02-25 06:41] LABS: Creatine Kinase MB 0.9 ng/mL (0.0-2.4)
[2016-02-25 06:43] LABS: Troponin I 0.377 ng/mL (0.000-0.034)
[2016-02-25] MEDS: PANTOPRAZOLE 40 MG TABLET PO SCH (06:45)
[2016-02-25] MEDS: DOCUSATE 100 MG CAP PO SCH ×2 (08:21→19:48)
[2016-02-25] MEDS: ASPIRIN 325 MG TAB PO SCH (08:21)
[2016-02-25] MEDS: CALCIUM CARBONATE 500 MG CHEWABLE PO SCH (08:21)
[2016-02-25] MEDS: TAMSULOSIN 0.4 MG CAP.ER.24H PO SCH ×2 (08:22→19:49)
[2016-02-25] MEDS: ENOXAPARIN 80 MG/0.8 ML SYRINGE SQ SCH ×2 (08:22→19:48)
[2016-02-25] MEDS: SULFAMETHOX-TMP 800-160MG 1 EACH TAB PO SCH ×2 (08:22→19:48)
[2016-02-25] MEDS: THEOPHYLLINE 24 HOUR 200 MG CAP.ER.24H PO SCH (08:22)
[2016-02-25] MEDS: ISOSORBIDE MONONITRATE ER 60 MG TAB.ER.24H PO SCH (08:22)
[2016-02-25] MEDS: FUROSEMIDE 10 MG/ML 4 ML VIAL IV SCH ×2 (08:22→19:48)
[2016-02-25] MEDS: ASCORBIC ACID 500 MG TAB PO SCH (09:08)
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
[2016-02-25] MEDS: SODIUM CHLORIDE 0.45% 1,000 ML IV SCH (15:34)
[2016-02-25] MEDS ORDERED: WARFARIN 3 MG TAB PO SCH (18:00)
[2016-02-25] MEDS ORDERED: DEXTROSE 5% IN WATER 100 ML with AMIODARONE 150 MG IV ONE (18:20)
[2016-02-25] MEDS: AMIODARONE 450 MG in DEXTROSE 5% IN WATER 250 ML IV SCH ×2 (18:51)
--- NOTE | 2016-02-25 22:17 | HP ---
DATE OF ADMISSION: 02/24/2016 CHIEF COMPLAINT: Difficulty breathing. HISTORY OF PRESENT ILLNESS: This is another admission for this 85-year-old white male who was in the hospital recently. He started to have progressive shortness of breath and became severe. His family brought him in the emergency room where he was found to be in congestive heart failure. He denies any chest pain, fever or chills, cough, hemoptysis, purulent sputum production, etc. REVIEW OF SYSTEMS: He has had no other symptoms. He has had no neurologic changes, abdominal pain, vomiting, diarrhea, melena, etc. Past medical history, family history, personal and social history, these are all otherwise unremarkable and unchanged from his recent admitting and discharge summaries. Physical examination: Blood pressure is 146/80 with a pulse of 94, respirations of 45 and he is afebrile. GENERAL: Appeared to be in respiratory distress. SKIN: Dry. Lymph nodes are not enlarged. Head, ears, eyes, nose, mouth, and throat were normal. NECK: Neck veins not distended. Thyroid is not enlarged. CHEST: Clear except for rales at the bases. CARDIAC: Demonstrates tachycardia. There is a grade 3/6 systolic murmur. ABDOMEN: Soft, nontender. The extremities are normal. NEUROLOGICAL: He is intact. IMPRESSION: 1. Congestive heart failure. 2. Cardiac murmur. PLAN: 1. Diuresis. 2. Cardiology consult.
--- NOTE | 2016-02-25 22:19 | PN ---
DATE OF SERVICE: 02/25/2016 CHIEF COMPLAINT: Congestive heart failure. HISTORY OF PRESENT ILLNESS: This patient is doing better. He was diuresed and his shortness of breath is much improved. He has been seen by cardiology. PHYSICAL EXAMINATION: CHEST: Clear. There are no rales throughout. Cardiac exam is unchanged. The same murmur. ABDOMEN: Soft, nontender. IMPRESSION: Congestive heart failure. PLAN: Continue diuresis and increase activity.
[2016-02-26] MEDS: AMIODARONE 450 MG in DEXTROSE 5% IN WATER 250 ML IV SCH ×4 (05:23→07:55)
[2016-02-26] MEDS: PANTOPRAZOLE 40 MG TABLET PO SCH (06:38)
[2016-02-26] MEDS: ENOXAPARIN 80 MG/0.8 ML SYRINGE SQ SCH ×2 (07:53→20:51)
[2016-02-26] MEDS: THEOPHYLLINE 24 HOUR 200 MG CAP.ER.24H PO SCH (07:54)
[2016-02-26] MEDS: DOCUSATE 100 MG CAP PO SCH ×2 (07:54→20:51)
[2016-02-26] MEDS: ISOSORBIDE MONONITRATE ER 60 MG TAB.ER.24H PO SCH (07:54)
[2016-02-26] MEDS: SULFAMETHOX-TMP 800-160MG 1 EACH TAB PO SCH ×2 (07:54→20:52)
[2016-02-26] MEDS: CALCIUM CARBONATE 500 MG CHEWABLE PO SCH (07:54)
[2016-02-26] MEDS: ASPIRIN 325 MG TAB PO SCH (07:54)
[2016-02-26] MEDS: FUROSEMIDE 10 MG/ML 4 ML VIAL IV SCH ×2 (07:55→20:52)
[2016-02-26] MEDS: ASCORBIC ACID 500 MG TAB PO SCH (07:55)
[2016-02-26] MEDS: TAMSULOSIN 0.4 MG CAP.ER.24H PO SCH ×2 (07:55→20:52)
[2016-02-26 08:26] LABS: Basophils % (A) 1 %; CH 30.9; CHCM 33.1; Eosinophils # (A) 0.3 k/uL (0-0.7); Eosinophils % (A) 10 %; HCT 38.8 % (39.0-53.0); HDW 3.01; HGB 12.8 gm/dL (13.0-17.5); Luc # (Auto) 0.06; Luc % (Auto) 2; Lymphocytes # (A) 0.8 k/uL (1.0-4.8); Lymphocytes % (A) 25 %; MCH 30.9 pg (25.0-35.0); MCV 93.6 fL (80.0-100.0); Mean Platelet Volume 8.4; Monocytes # (A) 0.2 k/uL (0-1.0); Monocytes % (A) 6 %; Neutrophils # (A) 1.8 k/uL (1.3-7.7); Neutrophils % (A) 56 %; RBC 4.14 m/uL (4.30-5.90); RDW 13.4 % (11.5-15.5); WBC 3.2 k/uL (3.8-10.6); WBC (Perox) 3.53
[2016-02-26 08:30] LABS: INR 1.7 (<1.1); Prothrombin Time 16.5 sec (9.0-12.0)
[2016-02-26 08:38] LABS: Calcium 9.1 mg/dL (8.4-10.2); Potassium 3.8 mmol/L (3.5-5.1); Total Bilirubin 0.6 mg/dL (0.2-1.3); Total Protein 5.8 g/dL (6.3-8.2)
--- NOTE | 2016-02-26 14:26 | P.PN ---
Subjective Principal diagnosis: Congestive heart failure/cardiomyopathy this is a pleasant 85-year-old gentleman who is somewhat a poor historian who presented to the hospital experiencing I lateral lower extremities edema. The patient presented to the hospital a few weeks ago with urinary retention and was seen and evaluatedby the urology service and an indwelling catheter was placed at that time for the patient to come and reevaluated again. He presented to the emergency room experiencing progressive bilateral lower extremities edema. Beside that he stated that he was a bit more short of breath. He denies having any chest pain or chest discomfort, no dizziness or lightheadedness and no syncope. The chest x-ray showed findings consistent with CHF. The BNP came in to be around 10,000. The EKG showed sinus rhythm without any significant ST or T-wave abnormalities. 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 The patient also was started on Lasix. During his last hospitalization he underwent an echocardiogram which showed impaired LV function with an ejection fraction of 40% was evidence of moderate to severe aortic stenosis with a mean gradient of 38 mmHg. Last night, the patient went into an A. fib with RVR, started on amiodarone IV, and converted to normal sinus mechanism. He continues to be in a sinus mechanism. I am going to DC the amiodarone IV and start the patient on amiodarone by mouth. He is already on anticoagulation with Coumadin because he has history of recurrent DVT. We will continue the Coumadin. Continue the Lasix IV for additional 24-hour and obtain kidney function in the morning. Objective - Vital Signs Vital signs: Vital Signs Temp 98.2 F 02/26/16 08:00 Pulse 81 02/26/16 08:00 Resp 20 02/26/16 08:00 BP 102/54 02/26/16 08:00 Pulse Ox 95 02/26/16 08:00 Intake & Output 02/25/16 02/26/16 02/26/16 18:59 06:59 18:59 Intake Total 564 2696.600 161.725 Output Total 2200 2700 Balance -1636 -3.400 161.725 Weight 80 kg Intake: IV 120 2437.6 Amiodarone 450 mg In 237.6 Dextrose 5% in Water 250 ml @ 1 MG/MIN 34.53 mls/ hr IV .Q7H31M [facility] Rx#: [id number] Sodium Chloride 0.45% 1, 120 2200 000 ml @ 20 mls/hr IV . Q24H [facility] Rx#:[id number] Intake, IV Titration 259.000 43.725 Amount Amiodarone 450 mg In 259.000 43.725 Dextrose 5% in Water 250 ml @ 1 MG/MIN 34.53 mls/ hr IV .Q7H31M [facility] Rx#: [id number] Oral 444 118 Output: Urine 2200 2700 Other: Voiding Method Indwelling Catheter Indwelling Catheter Indwelling Catheter - Constitutional General appearance: Present: no acute distress - Respiratory Respiratory: bilateral: diminished - Cardiovascular Rhythm: regular Heart sounds: normal: S1, S2 - Labs CBC & Chem 7: 02/26/16 08:11 02/26/16 08:11 Labs: Abnormal Lab Results - Last 24 Hours (Table) 02/26/16 02/26/16 02/26/16 Range/Units 08:11 08:11 08:11 WBC 3.2 L (3.8-10.6) k/uL RBC 4.14 L (4.30-5.90) m/uL Hgb 12.8 L (13.0-17.5) gm/dL Hct 38.8 L (39.0-53.0) % Lymphocytes # 0.8 L (1.0-4.8) k/uL PT 16.5 H (9.0-12.0) sec BUN 24 H (9-20) mg/dL Creatinine 1.74 H (0.66-1.25) mg/dL Glucose 118 H (74-99) mg/dL Total Protein 5.8 L (6.3-8.2) g/dL Albumin 3.3 L (3.5-5.0) g/dL Microbiology - Last 24 Hours (Table) 02/24/16 23:45 Urine Culture - Final Urine,Catheterized Assessment and Plan Plan: assessment #1 congestive heart failure exacerbation secondary to systolic dysfunction with predominantly right heart failure #2 cardiomyopathy with an ejection fraction of 40-45% #3 valvular heart disease with evidence of moderate to severe #4recurrent DVT on Coumadin #5 paroxysmal A. fib Plan #1 continue the Lasix IV for additional 24 hours and assess the BUN and creatinine #2 the patient continues to be hemodynamically stable at this point #3 the bilateral lower extremities edema seems to be slightly improved #4 we'll continue following up with
[2016-02-26 15:16] VITALS: BMI 27.6
[2016-02-26] MEDS: WARFARIN 3 MG TAB PO SCH (17:29)
--- NOTE | 2016-02-26 19:15 | PN ---
DATE OF SERVICE: 02/26/2016 CHIEF COMPLAINT: CHF. HISTORY OF PRESENT ILLNESS: This gentleman is doing a little bit better. Shortness of breath has improved. He is in sinus rhythm now. PHYSICAL EXAMINATION: Neck veins not distended. The chest is fairly clear. There are no significant rales. Cardiac exam is normal except for the murmur. The abdomen is soft, nontender. IMPRESSION: 1. Congestive heart failure. 2. Aortic stenosis. 3. Renal failure. PLAN: Continue to diurese and increase activity.
[2016-02-26] MEDS: SODIUM CHLORIDE 0.45% 1,000 ML IV SCH (20:08)
[2016-02-26] MEDS: AMIODARONE 200 MG TAB PO SCH (20:50)
[2016-02-27 02:12] VITALS: RESP 18
[2016-02-27] MEDS: PANTOPRAZOLE 40 MG TABLET PO SCH (06:39)
[2016-02-27 07:01] LABS: Basophils % (A) 1 %; CH 30.8; CHCM 33.2; Eosinophils # (A) 0.3 k/uL (0-0.7); Eosinophils % (A) 8 %; HCT 39.3 % (39.0-53.0); HDW 2.92; HGB 12.7 gm/dL (13.0-17.5); Luc # (Auto) 0.09; Luc % (Auto) 3; Lymphocytes # (A) 0.8 k/uL (1.0-4.8); Lymphocytes % (A) 22 %; MCH 30.2 pg (25.0-35.0); MCHC 32.4 g/dL (31.0-37.0); MCV 93.2 fL (80.0-100.0); Mean Platelet Volume 7.9; Monocytes # (A) 0.2 k/uL (0-1.0); Monocytes % (A) 6 %; Neutrophils # (A) 2.1 k/uL (1.3-7.7); Neutrophils % (A) 61 %; RBC 4.21 m/uL (4.30-5.90); RDW 13.3 % (11.5-15.5); WBC 3.5 k/uL (3.8-10.6); WBC (Perox) 3.94
[2016-02-27 07:13] LABS: INR 2.1 (<1.1); Prothrombin Time 19.7 sec (9.0-12.0)
[2016-02-27 07:18] LABS: Calcium 8.7 mg/dL (8.4-10.2); Total Bilirubin 0.5 mg/dL (0.2-1.3); Total Protein 5.8 g/dL (6.3-8.2)
[2016-02-27] MEDS: FUROSEMIDE 10 MG/ML 4 ML VIAL IV SCH (08:45)
[2016-02-27] MEDS: ENOXAPARIN 80 MG/0.8 ML SYRINGE SQ SCH (08:45)
[2016-02-27] MEDS: TAMSULOSIN 0.4 MG CAP.ER.24H PO SCH ×2 (08:45→19:52)
[2016-02-27] MEDS: ASPIRIN 325 MG TAB PO SCH (08:45)
[2016-02-27] MEDS: ASCORBIC ACID 500 MG TAB PO SCH (08:46)
[2016-02-27] MEDS: ISOSORBIDE MONONITRATE ER 60 MG TAB.ER.24H PO SCH (08:46)
[2016-02-27] MEDS: THEOPHYLLINE 24 HOUR 200 MG CAP.ER.24H PO SCH (08:46)
[2016-02-27] MEDS: AMIODARONE 200 MG TAB PO SCH ×2 (08:46→19:53)
[2016-02-27] MEDS: CALCIUM CARBONATE 500 MG CHEWABLE PO SCH (08:46)
[2016-02-27] MEDS: SULFAMETHOX-TMP 800-160MG 1 EACH TAB PO SCH ×2 (08:46→19:52)
[2016-02-27] MEDS: DOCUSATE 100 MG CAP PO SCH ×2 (08:47→19:52)
--- NOTE | 2016-02-27 13:01 | P.PN ---
Subjective Principal diagnosis: Systolic congestive heart failure This is a pleasant 85-year-old gentleman who presented to the hospital mainly with symptoms of lower extremity edema. He also has symptoms of worsening shortness of breath. Chest x-ray was consistent with congestive heart failure and his BNP level came back greater than 10,000. Patient was initiated on IV Lasix. He was also noted to be on Coumadin which he takes for history of DVT. Patient did have episode of atrial fibrillation and was initiated on amiodarone , he converted to normal sinus rhythm and remains in normal sinus rhythm today. INR today is 2.1. Creatinine today is 2.17. We will decrease aspirin 81 mg, DC Lovenox, continue Coumadin, discontinue IV Lasix should on oral diuretics. Arrangements are being made for the patient to be transferred to an ECF. We will indicate a tapering dose for the amiodarone. Objective - Vital Signs Vital signs: Vital Signs Temp 97.1 F L 02/27/16 08:00 Pulse 84 02/27/16 08:00 Resp 18 02/27/16 08:00 BP 113/61 02/27/16 08:00 Pulse Ox 91 L 02/27/16 08:00 Intake & Output 02/26/16 02/27/16 02/27/16 18:59 06:59 18:59 Intake Total 301.725 280 200 Output Total 3000 Balance 301.725 -2720 200 Weight 80 kg 83.5 kg Intake: IV 140 160 Amiodarone 450 mg In 100 Dextrose 5% in Water 250 ml @ 1 MG/MIN 34.53 mls/ hr IV .Q7H31M [facility] Rx#: [id number] Sodium Chloride 0.45% 1, 40 160 000 ml @ 20 mls/hr IV . Q24H [facility] Rx#:[id number] Intake, IV Titration 43.725 Amount Amiodarone 450 mg In 43.725 Dextrose 5% in Water 250 ml @ 1 MG/MIN 34.53 mls/ hr IV .Q7H31M [facility] Rx#: [id number] Oral 118 120 200 Output: Urine 3000 Other: Voiding Method Indwelling Catheter Indwelling Catheter Indwelling Catheter - Exam PHYSICAL EXAMINATION: HEENT: Head is atraumatic, normocephalic. Pupils equal, round. Neck is supple. There is no elevated jugular venous pressure. HEART EXAMINATION: S1 and S2 with systolic murmur is heard. CHEST EXAMINATION: Lungs are clear with mild diminished air entry to posterior bases ABDOMEN: Soft, nontender. Bowel sounds are heard. No organomegaly noted. EXTREMITIES: 2+ peripheral pulses with trace evidence of peripheral edema and no calf tenderness noted. NEUROLOGIC patient is awake, alert and oriented -3. . - Labs CBC & Chem 7: 02/27/16 06:44 02/27/16 06:44 Labs: Abnormal Lab Results - Last 24 Hours (Table) 02/27/16 02/27/16 02/27/16 Range/Units 06:44 06:44 06:44 WBC 3.5 L (3.8-10.6) k/uL RBC 4.21 L (4.30-5.90) m/uL Hgb 12.7 L (13.0-17.5) gm/dL Lymphocytes # 0.8 L (1.0-4.8) k/uL PT 19.7 H (9.0-12.0) sec BUN 30 H (9-20) mg/dL Creatinine 2.17 H (0.66-1.25) mg/dL Total Protein 5.8 L (6.3-8.2) g/dL Albumin 3.2 L (3.5-5.0) g/dL Microbiology - Last 24 Hours (Table) 02/24/16 23:45 Urine Culture - Final Urine,Catheterized Assessment and Plan (1) Systolic CHF, acute on chronic Status: Acute (2) NICM (nonischemic cardiomyopathy) Status: Acute (3) Severe aortic stenosis Status: Acute (4) DVT (deep venous thrombosis) Status: Acute (5) Paroxysmal a-fib Status: Acute (6) HTN (hypertension) Status: Acute Plan: From cardiology's perspective, we will discontinue the IV Lasix and start the patient on oral diuretics. Decrease the aspirin to 81 mg daily, DC Lovenox. Continue Coumadin. Arrangements are being made for patient to transfer to [facility] today. We will make a follow-up appointment on discharge. DNP note has been reviewed, I agree with a documented findings and plan of care. Patient was seen and examined.
[2016-02-27] MEDS: FUROSEMIDE 20 MG TAB PO SCH (16:24)
[2016-02-27] MEDS: WARFARIN 3 MG TAB PO SCH (17:43)
[2016-02-27] MEDS: SODIUM CHLORIDE 0.45% 1,000 ML IV SCH (19:41)
[2016-02-28] MEDS: traZODone HCL 50 MG TAB PO PRN (02:24)
[2016-02-28 04:57] VITALS: TEMP 97.3
[2016-02-28] MEDS: PANTOPRAZOLE 40 MG TABLET PO SCH (06:15)
[2016-02-28 06:28] LABS: INR 2.4 (<1.1)
[2016-02-28 06:37] LABS: Calcium 8.8 mg/dL (8.4-10.2); Potassium 3.9 mmol/L (3.5-5.1); Total Bilirubin 0.4 mg/dL (0.2-1.3); Total Protein 5.4 g/dL (6.3-8.2)
[2016-02-28] MEDS: DOCUSATE 100 MG CAP PO SCH (08:50)
[2016-02-28] MEDS: CALCIUM CARBONATE 500 MG CHEWABLE PO SCH (08:50)
[2016-02-28] MEDS: THEOPHYLLINE 24 HOUR 200 MG CAP.ER.24H PO SCH (08:50)
[2016-02-28] MEDS: AMIODARONE 200 MG TAB PO SCH (08:50)
[2016-02-28] MEDS: SULFAMETHOX-TMP 800-160MG 1 EACH TAB PO SCH (08:50)
[2016-02-28] MEDS: FUROSEMIDE 20 MG TAB PO SCH (08:50)
[2016-02-28] MEDS: TAMSULOSIN 0.4 MG CAP.ER.24H PO SCH (08:50)
[2016-02-28] MEDS: ISOSORBIDE MONONITRATE ER 60 MG TAB.ER.24H PO SCH (08:51)
[2016-02-28] MEDS: ASCORBIC ACID 500 MG TAB PO SCH (08:51)
[2016-02-28] MEDS ORDERED: ASPIRIN 81 MG CHEW PO SCH (09:00)
[2016-02-28 09:43] VITALS: BP 105/59; PULSE 75
--- NOTE | 2016-02-28 10:35 | P.PN ---
Subjective Principal diagnosis: Systolic congestive heart failure This is a pleasant 85-year-old gentleman who presented to the hospital mainly with symptoms of lower extremity edema. He also has symptoms of worsening shortness of breath. Chest x-ray was consistent with congestive heart failure and his BNP level came back greater than 10,000. Patient was initiated on IV Lasix. He was also noted to be on Coumadin which he takes for history of DVT. Patient did have episode of atrial fibrillation and was initiated on amiodarone , he converted to normal sinus rhythm and remains in normal sinus rhythm today. INR today is 2.4. Creatinine today is 2.10. Arrangements are being made for the patient to be transferred to an ECF. Objective - Vital Signs Vital signs: Vital Signs Temp 97.3 F L 02/28/16 08:00 Pulse 75 02/28/16 08:00 Resp 18 02/28/16 08:00 BP 105/59 02/28/16 08:00 Pulse Ox 95 02/28/16 08:00 Intake & Output 02/27/16 02/28/16 02/28/16 18:59 06:59 18:59 Intake Total 380 200 Output Total 3000 Balance 380 -2800 Weight 79.3 kg Intake: IV 0 0 Sodium Chloride 0.45% 1, 0 0 000 ml @ 20 mls/hr IV . Q24H [facility] Rx#:[id number] Oral 380 200 Output: Urine 3000 Other: Voiding Method Indwelling Catheter Indwelling Catheter Indwelling Catheter - Exam PHYSICAL EXAMINATION: HEENT: Head is atraumatic, normocephalic. Pupils equal, round. Neck is supple. There is no elevated jugular venous pressure. HEART EXAMINATION: S1 and S2 with systolic murmur is heard. CHEST EXAMINATION: Lungs are clear with mild diminished air entry to posterior bases ABDOMEN: Soft, nontender. Bowel sounds are heard. No organomegaly noted. EXTREMITIES: 2+ peripheral pulses with trace evidence of peripheral edema and no calf tenderness noted. NEUROLOGIC patient is awake, alert and oriented -3. . - Labs CBC & Chem 7: 02/27/16 06:44 02/28/16 05:32 Labs: Abnormal Lab Results - Last 24 Hours (Table) 02/28/16 02/28/16 Range/Units 05:32 05:32 PT 23.0 H (9.0-12.0) sec Sodium 136 L (137-145) mmol/L BUN 34 H (9-20) mg/dL Creatinine 2.10 H (0.66-1.25) mg/dL AST 77 H (17-59) U/L Total Protein 5.4 L (6.3-8.2) g/dL Albumin 3.1 L (3.5-5.0) g/dL Assessment and Plan (1) Systolic CHF, acute on chronic Status: Acute (2) NICM (nonischemic cardiomyopathy) Status: Acute (3) Severe aortic stenosis Status: Acute (4) DVT (deep venous thrombosis) Status: Acute (5) Paroxysmal a-fib Status: Acute (6) HTN (hypertension) Status: Acute Plan: From cardiology's perspective, patient may be able to be transferred to an ECF today. We will make a follow-up appointment post discharge. DNP note has been reviewed, I agree with a documented findings and plan of care. Patient was seen and examined.
--- NOTE | 2016-02-28 11:04 | P.DS ---
Providers Date of admission: 02/24/16 19:15 Expected date of discharge: 02/28/16 Attending physician: London Novak Consults: 02/24/16 19:24 Consult Physician Stat Consulting Provider: Cooper Lozoya Consult Reason/Comments: CHF Do you want consulting provider notified?: Already Contacted Primary care physician: [facility] Course: this is a pleasant 85-year-old gentleman who is somewhat a poor historian who presented to the hospital experiencing lateral lower extremities edema. The patient presented to the hospital a few weeks ago with urinary retention and was seen and evaluatedby the urology service and an indwelling catheter was placed at that time for the patient to come and reevaluated again. He presented to the emergency room experiencing progressive bilateral lower extremities edema. Beside that he stated that he was a bit more short of breath. He denies having any chest pain or chest discomfort, no dizziness or lightheadedness and no syncope. The chest x-ray showed findings consistent with CHF. The BNP came in to be around 10,000. Admission EKG showed sinus rhythm without any significant ST or T-wave abnormalities. Patient did have an episode of atrial fibrillation with RVR was initiated on IV amiodarone. Did convert to sinus rhythm and has maintained sinus rhythm. The IV amiodarone drip was stopped the patient was placed on oral amiodarone Patient was on Coumadin at home for recurrent DVT. The patient also was started on Lasix. Diuresed effectively with a noted improvement in patient's clinical status During his last hospitalization he underwent an echocardiogram which showed impaired LV function with an ejection fraction of 40% was evidence of moderate to severe aortic stenosis with a mean gradient of 38 mmHg.. Over the course of the hospitalization patient tended to clinically improve and was felt to be hemodynamically stable and appropriate proceed with a discharge to home Impression discharge diagnosis (1) present on admission shortness of breath with bilateral edema to the lower extremities due to acute exacerbation Systolic CHF, acute EF 40% Echocardiogram severe to moderate aortic stenosis Chronic congestive heart failure systolic dysfunction Episode this admission of atrial fibrillation with rapid ventricular response placed on IV amiodarone drip for the event and converted to sinus (2) NICM (nonischemic cardiomyopathy) Status: Acute (3) Severe aortic stenosis Status: Acute (4) DVT (deep venous thrombosis) on anticoagulation at home Status: Acute (5) Paroxysmal a-fib Status: Acute (6) HTN (hypertension) Status: Acute Chronic constipation Chronic physical debility Known coronary artery disease prior coronary artery bypass grafting History of urinary retention current indwelling Tapia catheter to be removed in one week at the urologists office Hypertension essential benign Acute kidney injury suspect due to chronic kidney disease stage 3 The ab IV Lasix diureticsove dictated assessment and findings were discussed with dr bosch . Impression and the plan of care have been dictated as directed. Lisa Mccullough nurse practitioner acting as a scribe for dr novak Patient Condition at Discharge: Fair Plan - Discharge Summary New Discharge Prescriptions: Amiodarone [Cordarone] 400 mg PO BID #60 tab Furosemide [Lasix] 20 mg PO BID@0900,1600 #60 tab Discharge Medication List Ascorbic Acid [Vitamin C] 1,000 mg PO DAILY 02/19/16 [History] Aspirin 325 mg PO DAILY 02/19/16 [History] Calcium Carbonate [Tums] 500 mg PO DAILY 02/19/16 [History] Isosorbide Mononitrate ER [Imdur] 60 mg PO DAILY 02/19/16 [History] Nitroglycerin Sl Tabs [Nitrostat] 0.4 mg SUBLINGUAL Q5M PRN 02/19/16 [History] Omeprazole 20 mg PO DAILY 02/19/16 [History] Theophylline Anhydrous [Theophylline] 400 mg PO DAILY 02/19/16 [History] Warfarin Sodium [Coumadin] 6 mg PO [id number] 02/19/16 [History] Docusate [Colace] 100 mg PO BID #60 cap 02/22/16 [Rx] Sodium Bicarbonate Tab 650 mg PO QID #0 tab 02/22/16 [Rx] Tamsulosin [Flomax] 0.4 mg PO BID #60 cap.er.24h 02/22/16 [Rx] Echinacea 500 mg PO DAILY 02/24/16 [History] Warfarin Sodium [Coumadin] 3 mg PO WATERS 02/24/16 [History] Acetaminophen Tab [Tylenol] 650 mg PO Q6HR PRN #0 tab 02/28/16 [Rx] Amiodarone [Cordarone] 400 mg PO BID #60 tab 02/28/16 [Rx] Furosemide [Lasix] 20 mg PO BID@0900,1600 #60 tab 02/28/16 [Rx] Follow up Appointment(s)/Referral(s): Bhaskar Peña DO [Primary Care Provider] - 1-2 days Cooper Lozoya MD [STAFF PHYSICIAN] - 1 Week Ambulatory/Diagnostic Orders: Comprehensive Metabolic Panel [LAB.AMB] Time Frame: 03/01/16, Location: Determined By Patient Prothrombin Time INR [LAB.AMB] Time Frame: 03/01/16, Location: Determined By Patient Activity/Diet/Wound Care/Special Instructions: [facility] [phone] Indwelling Tapia catheter is to be removed the day before following up with the urologist in the outpatient setting as scheduled Dr. 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
--- NOTE | 2016-02-28 13:46 | PN ---
DATE OF SERVICE: 02/27/2016 CHIEF COMPLAINT: Shortness of breath. HISTORY OF PRESENT ILLNESS: This gentleman is doing better. He has had no pain, shortness of breath, etc. PHYSICAL EXAM: The chest is clear and there are no rales or rhonchi. The cardiac exam is unremarkable and the abdomen is soft and nontender. He might be able to go home today. IMPRESSION: 1. Acute congestive heart failure. 2. Coronary artery disease. 3. Atrial fibrillation. PLAN: Possibly home later today.
--- NOTE | 2016-02-28 14:18 | PN ---
DATE OF SERVICE: 02/28/2016 CHIEF COMPLAINT: CHF. HISTORY OF PRESENT ILLNESS: This gentleman is doing well and would like to go home. He has had no shortness of breath. PHYSICAL EXAM: Cardiac exam is unchanged and the chest is completely clear. IMPRESSION: Congestive heart failure. PLAN: Home today and this is being arranged by the nurse practitioner.
== END 2016-02-28 13:05 | disposition home health service (06) | DRG 291 ==
LOC: SUPCPDRO 16:53 → EC 16:53 → 6SEL 19:15
PROVIDERS: ADMIT Family Medicine; ATTEND Family Medicine
DX: I13.0 Hypertensive heart and chronic kidney disease with heart failure and stage 1 through stage 4 chronic kidney disease, or unspecified chronic kidney disease (principal); I50.23 Acute on chronic systolic (congestive) heart failure; N17.9 Acute kidney failure, unspecified; I42.9 Cardiomyopathy, unspecified; I48.0 Paroxysmal atrial fibrillation; I35.0 Nonrheumatic aortic (valve) stenosis; N18.3 Chronic kidney disease, stage 3 (moderate); N13.9 Obstructive and reflux uropathy, unspecified; K21.9 Gastro-esophageal reflux disease without esophagitis; I25.2 Old myocardial infarction; H91.90 Unspecified hearing loss, unspecified ear; I25.10 Atherosclerotic heart disease of native coronary artery without angina pectoris; K59.09 Other constipation; N42.9 Disorder of prostate, unspecified; M19.90 Unspecified osteoarthritis, unspecified site; Z86.718 Personal history of other venous thrombosis and embolism; Z86.711 Personal history of pulmonary embolism; Z90.49 Acquired absence of other specified parts of digestive tract; Z79.82 Long term (current) use of aspirin; Z79.01 Long term (current) use of anticoagulants; Z87.442 Personal history of urinary calculi; Z95.1 Presence of aortocoronary bypass graft; Z79.899 Other long term (current) drug therapy
CPT/HCPCS: 36415; 70450; 71010; 80048; 80053; 80198; 81001; 82550; 82553; 83735; 83880; 84484; 85025; 85610; 85730; 87040; 87086; 93005; 96374; 99285

== ENCOUNTER → 2016-05-01 | Outpatient (CLI) | payer MEDICARE, BC ==
[2016-05-01 13:24] LABS: Appearance,Urine Clear (Clear); Bacteria,Urine Occasional /hpf; Bilirubin,Urine Negative (Negative); Glucose,Urine (UA) Negative (Negative); Ketones,Urine Negative (Negative); Leukocyte Esterase,Urine Small (Negative); Mucus,Urine Rare /hpf; Nitrite,Urine Negative (Negative); PH, Urine 6.5 (5.0-8.0); Particle Count 1647; Protein,Urine Negative (Negative); RBC,Urine 24 /hpf (0-5); Specific Gravity,Urine 1.006 (1.001-1.035); UA Billing (MACRO vs. MICRO) MICRO; Urobilinogen,Urine <2.0 mg/dL (<2.0); WBC,Urine 5 /hpf (0-5)
[2016-05-01 13:43] LABS: Partial Thromboplastin Time 29.4 sec (22.0-30.0)
[2016-05-01 13:45] LABS: INR 2.9 (<1.1); Prothrombin Time 27.6 sec (9.0-12.0)
[2016-05-01 13:48] LABS: Calcium 9.1 mg/dL (8.4-10.2); Potassium 3.8 mmol/L (3.5-5.1)
[2016-05-01 14:03] LABS: Anisocytosis Slight; Basophils % (A) 1 %; CH 31.2; CHCM 32.7; Eosinophils # (A) 0.1 k/uL (0-0.7); Eosinophils % (A) 3 %; HDW 3.15; HGB 11.5 gm/dL (13.0-17.5); Luc # (Auto) 0.08; Luc % (Auto) 2; Lymphocytes # (A) 0.9 k/uL (1.0-4.8); Lymphocytes % (A) 25 %; MCH 31.5 pg (25.0-35.0); MCHC 32.8 g/dL (31.0-37.0); Mean Platelet Volume 8.1; Monocytes # (A) 0.2 k/uL (0-1.0); Monocytes % (A) 6 %; Neutrophils # (A) 2.2 k/uL (1.3-7.7); Neutrophils % (A) 63 %; RBC 3.65 m/uL (4.30-5.90); RDW 16.4 % (11.5-15.5); WBC 3.5 k/uL (3.8-10.6); WBC (Perox) 3.66
== END | disposition home or self-care (01) ==
LOC: LABPAT 11:42
PROVIDERS: ATTEND Urology
DX: Z01.818 Encounter for other preprocedural examination (principal); R33.9 Retention of urine, unspecified; N40.1 Benign prostatic hyperplasia with lower urinary tract symptoms; N19 Unspecified kidney failure; I10 Essential (primary) hypertension; I50.9 Heart failure, unspecified; Z79.01 Long term (current) use of anticoagulants
CPT/HCPCS: 80048; 81001; 85025; 85610; 85730; 86850; 86900; 86901; 87077; 87086; 87186

== ENCOUNTER 2016-05-08 05:49 | Day surgery (SDC) | payer MEDICARE, BC ==
[2016-04-30 15:54] VITALS: BMI 27.8
[~2016-05-08 05:49] MED LIST: DEXAMETHASONE SOD PHOSPHATE 10 MG/ML 1 ML VIAL IV ONE; GENTAMICIN 120 MG in SODIUM CHLORIDE 0.9% 100 ML IVPB ONE; HYDROmorphone 1 MG/ML 1 ML SYRINGE IVP PRN; LACTATED RINGERS 1,000 ML IV SCH; LIDOCAINE 1% 20 ML VIAL (10MG/ML) FOR IV START INTRADERMA PRN; ONDANSETRON 4 MG/2 ML VIAL IVP ONE
[2016-05-08 07:26] LABS: INR 1.5 (<1.1); Prothrombin Time 14.7 sec (9.0-12.0)
[2016-05-08] MEDS ORDERED: NEOSTIGMINE 1 MG/ML 10 ML VIAL ONE (07:27)
[2016-05-08] MEDS ORDERED: ROCURONIUM BROMIDE 10 MG/ML 10 ML VIAL IV ONE (07:27)
[2016-05-08] MEDS ORDERED: fentaNYL (PF) 50 MCG/ML 2 ML AMP ONE (07:27)
[2016-05-08] MEDS ORDERED: GENTAMICIN 40 MG/ML 2 ML VIAL ONE (07:27)
[2016-05-08] MEDS ORDERED: GLYCOPYRROLATE 0.2 MG/ML 2 ML VIAL ONE (07:27)
[2016-05-08] MEDS ORDERED: ePHEDrine 50 MG/ML 1 ML AMP ONE (07:27)
[2016-05-08] MEDS ORDERED: MIDAZOLAM 2 MG/2 ML VIAL ONE (07:27)
[2016-05-08] MEDS ORDERED: SUCCINYLCHOLINE CHLORIDE 100 MG/5 ML SYR IV ONE (07:27)
[2016-05-08] MEDS ORDERED: PROPOFOL 10 MG/ML 20 ML VIAL IV ONE (07:27)
[2016-05-08] MEDS ORDERED: LACTATED RINGERS 1,000 ML IV ONE (08:01)
[2016-05-08] MEDS ORDERED: NITROGLYCERIN SL TABS 0.4 MG TAB SUBLINGUAL PRN (08:39)
[2016-05-08] MEDS ORDERED: MAG HYDROX/AL HYDROX/SIMETH 30 ML CUP PO PRN (08:42)
[2016-05-08] MEDS ORDERED: ACETAMINOPHEN TAB 325 MG TAB PO PRN (08:42)
[2016-05-08] MEDS ORDERED: BELLADONNA-OPIUM 16.2-60 MG 1 EACH SUPP RECTAL PRN (08:42)
[2016-05-08] MEDS ORDERED: HYDROcodone/APAP 5-325MG 1 EACH TAB PO PRN (08:45)
--- NOTE | 2016-05-08 08:48 | P.OP ---
Date of Procedure: 05/08/16 Preoperative Diagnosis: BPH with urine retention Postoperative Diagnosis: Same Procedure(s) Performed: Bipolar TURP with plasma button Anesthesia: ANASTASIYA Surgeon: Geovany Davis Estimated Blood Loss (ml): 25 Pathology: none sent Condition: stable Disposition: PACU Indications for Procedure: The patient is an 85-year-old gentleman with a large prostate in urine retention who comes for a TURP. Description of Procedure: The patient is brought to the operating suite and given a successful general endotracheal anesthesia on the operating table. He's placed lithotomy position. His Tapia catheters removed. A sterile prep and drape was administered. He has received preoperative gentamicin and ampicillin. The 25- Ethiopian sheath and direct vision obturator with Foroblique lenses introduced in urethra is normal the prostatic urethra shows trilobar obstruction. The bladder wall shows heavy trabeculation and catheter edema. The bladder and prostate are irrigated thoroughly. There is stony debris in the bladder from the catheter this irrigated out of the bladder. With the bipolar plasma button vaporized from 12 to 6:00 the left lateral lobe from bladder neck to verumontanum. I do the same on the right lateral lobe and then vaporized the floor. End of the procedure there is no active bleeding. I irrigate the bladder out of any debris. Introduce an 18-Ethiopian coud-tip catheter with clear urine return. The patient's awake and returned recovery room good condition. Blood loss is less than 25 mL. He'll be observed in the hospital overnight because of his cardiac issues.
[2016-05-08] MEDS ORDERED: CEPHALEXIN 500 MG CAP PO SCH (09:00)
[2016-05-08] MEDS ORDERED: AMIODARONE 200 MG TAB PO SCH (09:00)
--- NOTE | 2016-05-08 11:49 | CONS ---
DATE OF CONSULTATION: Mr. Xiao is an 85-year-old male who is followed by Dr. Lozoya who presented to undergo a TURP. Patient had an indwelling Tapia catheter and was admitted electively to undergo the surgery today. He has been seen by Dr. Lozoya in the past, most recently on the of this month. He has a history of mild cardiomyopathy was mild aortic stenosis and had an episode of paroxysmal atrial fibrillation. He has some peripheral edema, that has improved. He denies any chest pain. He denies any dizziness or palpitation. He is limited in his activity over the last 3 months. He has some dyspnea on exertion, but no dizziness. No syncope. No clear PND or orthopnea. His risk factors are remarkable for hyperlipidemia. He is nondiabetic, nonsmoker. His medications at home include Coumadin, lovastatin 10 mg daily, isosorbide mononitrate 60 mg daily, Lasix 40 mg twice a day, amiodarone 400 mg twice a day, theophylline, Flomax. He was admitted to the hospital in February of this year with an episode of congestive heart failure. At that time, his echocardiogram that was performed in the beginning of February showed an ejection fraction of 40% to 45% with a mean gradient of 37 mmHg across the aortic valve. The patient has no documented history of obstructive coronary artery disease, although I do not have any data about the cardiac catheterization or a stress test. REVIEW OF SYSTEMS: RESPIRATORY SYSTEM: He had some cough, dyspnea on exertion. No recent wheezing. GI SYSTEM: No recent GI bleeding. No peptic ulcer disease. SYSTEM: He had hematuria and indwelling catheter as well urine retention. NERVOUS SYSTEM: No stroke or seizure. PHYSICAL EXAMINATION: An 85-year-old male, alert, oriented, in no apparent distress. Blood pressure 109/60 with a heart rate in the 60s. HEAD: Normocephalic. EYES: Sclerae nonicteric. NECK: Good upstroke. No bruit. LUNGS: Clear to auscultation anteriorly. HEART: Regular rate and rhythm. S1, S2, no S3, with systolic murmur 3/6, mid to late peaking. No diastolic murmur. No rub. ABDOMEN: Soft, nontender, positive bowel sounds. No organomegaly. EXTREMITIES: No significant edema. Lab data revealed an INR of 1.5 on presentation. IMPRESSION: 1. Status post TURP. 2. History of moderate aortic stenosis, stable. 3. Prior history of cardiomyopathy, no overt signs of heart failure. 4. Paroxysmal atrial fibrillation. 5. Prior history of deep venous thrombosis. 6. History of hyperlipidemia. RECOMMENDATION: From the cardiac standpoint, I will reinitiate treatment. Will follow his lab data. Will reinitiate Coumadin, increase his level of activity as per Dr. Davis. I will expect he should be able to be discharged home in 24 hours and follow up on a regular basis with Dr. Lozoya. Thank you for this consult. Will follow with you.
[2016-05-08] MEDS: THEOPHYLLINE 24 HOUR 400 MG CAP.ER.24H PO SCH (13:57)
[2016-05-08] MEDS: ALLOPURINOL 100 MG TAB PO SCH (13:57)
[2016-05-08] MEDS: PANTOPRAZOLE 40 MG TABLET PO SCH (13:57)
[2016-05-08] MEDS: FUROSEMIDE 40 MG TAB PO SCH ×2 (13:57→17:19)
[2016-05-08] MEDS: DOCUSATE 100 MG CAP PO SCH ×2 (13:57→19:27)
[2016-05-08] MEDS: ISOSORBIDE MONONITRATE ER 60 MG TAB.ER.24H PO SCH (13:57)
[2016-05-08] MEDS: DEXTROSE 5%-0.45% NACL 1,000 ML IV SCH (17:18)
[2016-05-08] MEDS: CEPHALEXIN 500 MG CAP PO SCH ×2 (17:19→23:11)
[2016-05-08] MEDS ORDERED: ATORVASTATIN 10 MG TAB PO SCH (21:00)
[2016-05-08] MEDS ORDERED: AMPICILLIN 1,000 MG in SODIUM CHLORIDE 0.9% 50 ML IVPB ONE (23:00)
[2016-05-09] MEDS: DEXTROSE 5%-0.45% NACL 1,000 ML IV SCH ×2 (06:01→08:19)
[2016-05-09 07:48] VITALS: BP 100/58; PULSE 63; RESP 17; TEMP 97.3
[2016-05-09 07:53] LABS: Potassium 4.5 mmol/L (3.5-5.1)
[2016-05-09] MEDS: CEPHALEXIN 500 MG CAP PO SCH (08:15)
[2016-05-09] MEDS: THEOPHYLLINE 24 HOUR 400 MG CAP.ER.24H PO SCH (08:15)
[2016-05-09] MEDS: DOCUSATE 100 MG CAP PO SCH (08:15)
[2016-05-09] MEDS: ALLOPURINOL 100 MG TAB PO SCH (08:15)
[2016-05-09] MEDS: ISOSORBIDE MONONITRATE ER 60 MG TAB.ER.24H PO SCH (08:15)
[2016-05-09] MEDS: PANTOPRAZOLE 40 MG TABLET PO SCH (08:16)
[2016-05-09] MEDS ORDERED: AMIODARONE 200 MG TAB PO SCH (09:00)
--- NOTE | 2016-05-09 11:31 | P.DS ---
Providers Attending physician: Geovany Davis Consults: 05/08/16 08:44 Consult Physician Routine Consulting Provider: Cooper Lozoya Consult Reason/Comments: cardiac fu Do you want consulting provider notified?: Yes Primary care physician: Jeanne Mirza, [facility] Hospital Course: The patient is an 85-year-old gentleman with a history of DVT aortic stenosis cardiac problems in urine retention. He was admitted 05/08/2016 for a TURP. He underwent this uneventfully. He had an uneventful postoperative course. His urine this morning is very light tea-colored. He'll be discharged home with an indwelling catheter till Friday. I will remove the catheter Friday and if his urine is clear he'll resume his anticoagulation then. He resume all his other home medications. His activity is minimal. His diet is regular. Condition is good. Patient Condition at Discharge: Good Plan - Discharge Summary Discharge Medication List Ascorbic Acid [Vitamin C] 1,000 mg PO DAILY 02/19/16 [History] Aspirin 325 mg PO DAILY 02/19/16 [History] Isosorbide Mononitrate ER [Imdur] 60 mg PO DAILY 02/19/16 [History] Nitroglycerin Sl Tabs [Nitrostat] 0.4 mg SUBLINGUAL Q5M PRN 02/19/16 [History] Omeprazole 20 mg PO DAILY 02/19/16 [History] Theophylline Anhydrous [Theophylline] 400 mg PO DAILY 02/19/16 [History] Warfarin Sodium [Coumadin] 6 mg PO WESA 02/19/16 [History] Docusate [Colace] 100 mg PO BID #60 cap 02/22/16 [Rx] Tamsulosin [Flomax] 0.4 mg PO BID #60 cap.er.24h 02/22/16 [Rx] Warfarin Sodium [Coumadin] 3 mg PO SUMOTUTHFR 02/24/16 [History] Amiodarone [Cordarone] 400 mg PO BID #60 tab 02/28/16 [Rx] Allopurinol [Zyloprim] 100 mg PO DAILY 04/30/16 [History] Cholecalciferol [Vitamin D3] 2,000 unit PO DAILY 04/30/16 [History] Furosemide [Lasix] 40 mg PO BID@0900,1600 04/30/16 [History] Lovastatin [Mevacor] 10 mg PO HS 04/30/16 [History] Vitamin E (Dl,Tocopheryl Acet) [Vitamin E] 400 unit PO DAILY 04/30/16 [History] Cephalexin [Keflex] 500 mg PO QID 05/08/16 [History] Follow up Appointment(s)/Referral(s): Geovany Davis MD [STAFF PHYSICIAN] - 05/13/16 Activity/Diet/Wound Care/Special Instructions: Home with Tapia. Office to see me Friday for catheter removal. Hold aspirin, Coumadin, vitamin till Friday.
[2016-05-09] MEDS: FUROSEMIDE 40 MG TAB PO SCH (11:56)
--- NOTE | 2016-05-09 15:12 | PN ---
Mr. Xiao is an 85-year-old male who underwent TURP, has a history of paroxysmal atrial fibrillation, prior history of DVT, history of aortic stenosis of moderate degree. He is doing quite well this morning. He is denying any chest pain. His breathing has been stable. He denies any dizziness. No palpitation. No nausea. He continues to be on amiodarone 200 mg daily, Lipitor 10 mg daily, Lasix 40 mg twice a day, isosorbide mononitrate 60 mg daily. PHYSICAL EXAMINATION: Blood pressure 150 with a heart rate in 60s. LUNGS: Clear. HEART: Regular rate and rhythm. S1, S2, no S3, with systolic murmur, ejection type, no diastolic murmur. No rub. ABDOMEN: Soft, nontender. EXTREMITIES: No significant edema. Lab data revealed BUN and creatinine 30 and 1.97, potassium 4.5. IMPRESSION: 1. Status post TURP. 2. Paroxysmal atrial fibrillation, remains in sinus mechanism. 3. Aortic stenosis, moderate and stable. 4. History of cardiomyopathy, stable. 5. History of deep venous thrombosis. 6. Hyperlipidemia. 7. Chronic kidney disease. RECOMMENDATION: From the cardiac standpoint, I have discussed with the family and the patient the lower dose of amiodarone at this time. The timing of starting the Coumadin will be left to Dr. Davis. He will follow up as an outpatient with Dr. Lozoya as scheduled. He will follow his weight and depending on that, the dose of his diuretic would be further adjusted.
== END 2016-05-09 13:10 | disposition home or self-care (01) ==
LOC: OR 05:49 → 3SUR 08:32 → OR 05-09 13:10
PROVIDERS: ATTEND Urology
DX: N40.1 Benign prostatic hyperplasia with lower urinary tract symptoms (principal); N13.8 Other obstructive and reflux uropathy; I25.10 Atherosclerotic heart disease of native coronary artery without angina pectoris; I48.0 Paroxysmal atrial fibrillation; Z79.01 Long term (current) use of anticoagulants; I35.0 Nonrheumatic aortic (valve) stenosis; E78.5 Hyperlipidemia, unspecified; I12.9 Hypertensive chronic kidney disease with stage 1 through stage 4 chronic kidney disease, or unspecified chronic kidney disease; N18.9 Chronic kidney disease, unspecified; Z95.1 Presence of aortocoronary bypass graft; J44.9 Chronic obstructive pulmonary disease, unspecified; K21.9 Gastro-esophageal reflux disease without esophagitis; Z79.2 Long term (current) use of antibiotics; Z79.82 Long term (current) use of aspirin; Z79.899 Other long term (current) drug therapy; Z88.8 Allergy status to other drugs, medicaments and biological substances
CPT/HCPCS: 93005; 80048; 85610; 52601; J2250; J1580 ×2; J1100; J2710; J2405; J3010; J0290; J0330; J2704; 86850; 86900; 86901

== ENCOUNTER 2016-07-01 15:02 | Inpatient (IN) | payer MEDICARE, BC ==
[2016-07-01] MEDS ORDERED: ACETAMINOPHEN TAB 500 MG TAB PO PRN (21:32)
[2016-07-01] MEDS ORDERED: NITROGLYCERIN SL TABS 0.4 MG TAB SUBLINGUAL PRN (21:33)
[2016-07-01] MEDS ORDERED: HEPARIN SODIUM,PORCINE 5,000 UNIT/ML 1 ML VIAL SQ SCH (21:45)
[2016-07-01] MEDS: PANTOPRAZOLE 40 MG/10 ML VIAL IVP SCH (22:36)
[2016-07-01] MEDS: AMIODARONE 200 MG TAB PO SCH (22:36)
[2016-07-01] MEDS: ALLOPURINOL 100 MG TAB PO SCH (22:39)
[2016-07-02] MEDS: metroNIDAZOLE-NS PMX 500 MG in SALINE 1 100ML.BAG IVPB SCH ×4 (00:43→23:17)
[2016-07-02] MEDS: SODIUM CHLORIDE 0.9% 1,000 ML IV SCH ×2 (01:28→15:23)
[2016-07-02 01:51] LABS: Appearance,Urine Clear (Clear); Bacteria,Urine Rare /hpf; Bilirubin,Urine Negative (Negative); Glucose,Urine (UA) Negative (Negative); Ketones,Urine Negative (Negative); Leukocyte Esterase,Urine Trace (Negative); Mucus,Urine Rare /hpf; Nitrite,Urine Negative (Negative); PH, Urine 5.5 (5.0-8.0); Particle Count 1322; Protein,Urine Trace (Negative); RBC,Urine 2 /hpf (0-5); Specific Gravity,Urine 1.015 (1.001-1.035); UA Billing (MACRO vs. MICRO) MICRO; Urobilinogen,Urine <2.0 mg/dL (<2.0); WBC,Urine 6 /hpf (0-5)
[2016-07-02] MEDS: ALLOPURINOL 100 MG TAB PO SCH ×2 (07:57→21:25)
[2016-07-02] MEDS: ASPIRIN 325 MG TAB PO SCH (07:57)
[2016-07-02] MEDS: PANTOPRAZOLE 40 MG/10 ML VIAL IVP SCH (07:57)
[2016-07-02] MEDS: AMIODARONE 200 MG TAB PO SCH (07:57)
[2016-07-02] MEDS: FUROSEMIDE 40 MG TAB PO SCH ×2 (07:57→15:39)
[2016-07-02] MEDS: THEOPHYLLINE 24 HOUR 400 MG CAP.ER.24H PO SCH (07:58)
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
[2016-07-02 08:48] LABS: INR 2.8 (<1.1); Prothrombin Time 26.7 sec (9.0-12.0)
[2016-07-02 09:01] LABS: Basophils % (A) 1 %; CH 30.6; Calcium 8.3 mg/dL (8.4-10.2); Eosinophils # (A) 0.2 k/uL (0-0.7); Eosinophils % (A) 4 %; HCT 37.6 % (39.0-53.0); HDW 3.26; HGB 11.5 gm/dL (13.0-17.5); Hypochromasia Slight; Luc # (Auto) 0.07; Luc % (Auto) 2; Lymphocytes # (A) 1.3 k/uL (1.0-4.8); Lymphocytes % (A) 38 %; MCH 29.3 pg (25.0-35.0); MCHC 30.5 g/dL (31.0-37.0); MCV 96.1 fL (80.0-100.0); Magnesium 1.8 mg/dL (1.6-2.3); Mean Platelet Volume 7.6; Monocytes # (A) 0.3 k/uL (0-1.0); Monocytes % (A) 8 %; Neutrophils # (A) 1.7 k/uL (1.3-7.7); Neutrophils % (A) 47 %; Potassium 3.1 mmol/L (3.5-5.1); RBC 3.92 m/uL (4.30-5.90); RDW 15.8 % (11.5-15.5); WBC 3.5 k/uL (3.8-10.6); WBC (Perox) 3.73
[2016-07-02] MEDS ORDERED: Potassium Replacement Protocol 1 EACH MISC MISCELLANE PRN (09:24)
[2016-07-02] MEDS ORDERED: Magnesium Replacement Protocol 1 EACH MISC MISCELLANE PRN (09:25)
[2016-07-02] MEDS: CHOLESTYRAMINE (WITH SUGAR) 4 GM PACKET PO SCH ×3 (09:55→17:20)
[2016-07-02] MEDS: MAGNESIUM SULFATE-D5W PMX 1 GM in DEXTROSE/WATER 1 100ML.BAG IVPB SCH ×2 (09:55→11:14)
[2016-07-02] MEDS: POTASSIUM CHLORIDE ER 20 MEQ TAB.ER PO SCH ×2 (09:55→11:14)
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
[2016-07-02] MEDS: ISOSORBIDE MONONITRATE ER 60 MG TAB.ER.24H PO SCH (12:22)
[2016-07-02] MEDS: VANCOMYCIN ORAL SOLUTION 250 MG/5 ML BOTTLE PO SCH ×3 (12:25→23:17)
[2016-07-02] MEDS: CHERRY FLAVOR 60 ML BOTTLE PO PRN ×3 (12:25→23:17)
--- NOTE | 2016-07-02 14:09 | XR ---
EXAMINATION TYPE: XR chest 1V portable DATE OF EXAM: 07/02/2016 11:19 AM COMPARISON: Prior chest x-ray February HISTORY: Congestive heart failure TECHNIQUE: Single frontal view of the chest is obtained. FINDINGS: The heart is enlarged and the patient is post median sternotomy. There may be some improve d aeration, lung volumes. Interstitium remains increased. No evident pneumothorax or sizable effusion . IMPRESSION: There is likely some improvement in aeration within the lungs. Findings suggest congesti ve heart failure.
[2016-07-02] MEDS: WARFARIN 3 MG TAB PO SCH (17:20)
[2016-07-02] MEDS: MELATONIN 3 MG TABLET PO SCH (21:25)
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
[2016-07-03] MEDS: CHERRY FLAVOR 60 ML BOTTLE PO PRN ×3 (06:20→18:14)
[2016-07-03] MEDS: VANCOMYCIN ORAL SOLUTION 250 MG/5 ML BOTTLE PO SCH ×3 (06:20→18:14)
[2016-07-03] MEDS: SODIUM CHLORIDE 0.9% 1,000 ML IV SCH ×2 (06:20→14:04)
[2016-07-03] MEDS: metroNIDAZOLE-NS PMX 500 MG in SALINE 1 100ML.BAG IVPB SCH ×2 (07:44→15:19)
[2016-07-03] MEDS: FUROSEMIDE 40 MG TAB PO SCH ×2 (07:45→15:20)
[2016-07-03] MEDS: PANTOPRAZOLE 40 MG/10 ML VIAL IVP SCH (07:45)
[2016-07-03] MEDS: ASPIRIN 325 MG TAB PO SCH (07:45)
[2016-07-03] MEDS: THEOPHYLLINE 24 HOUR 400 MG CAP.ER.24H PO SCH (07:45)
[2016-07-03] MEDS: AMIODARONE 200 MG TAB PO SCH (07:45)
[2016-07-03] MEDS: ALLOPURINOL 100 MG TAB PO SCH ×2 (07:45→20:57)
[2016-07-03] MEDS: ISOSORBIDE MONONITRATE ER 60 MG TAB.ER.24H PO SCH (07:45)
--- NOTE | 2016-07-03 10:04 | P.PN ---
Subjective Principal diagnosis: Clostridium difficile colitis 85-year-old male admitted with diarrhea secondary Clostridium difficile colitis. Diarrhea improved. One bowel movement last night. Feels better. Tolerating diet. Afebrile. Objective - Vital Signs Vital signs: Vital Signs Temp 96.4 F L 07/03/16 07:00 Pulse 70 07/03/16 07:00 Resp 16 07/03/16 07:00 BP 117/65 07/03/16 07:00 Pulse Ox 95 07/03/16 07:00 Intake & Output 07/02/16 07/03/16 07/03/16 18:59 06:59 18:59 Intake Total 700 Balance 700 Weight 78.63 kg 79.5 kg Intake: Oral 700 Other: Voiding Method Toilet # Voids 3 1 1 # Bowel Movements 2 1 - Exam General appearance: The patient is alert, oriented, in no acute distress. HET: Head is normocephalic and atraumatic. Pupils are equal and reactive. Oropharynx is clear without lesions. Neck: Supple without lymphadenopathy. Trachea midline. Heart: S1 S2. Regular rate and rhythm. Lungs: No crackles or wheezes are heard. Abdomen: Soft, nontender, nondistended with bowel sounds. No peritoneal signs. No palpable organomegaly or masses. Extremities: Normal skin color and turgor. No cyanosis, rash, ulceration, clubbing, or edema. Radial and pedal pulses are 2/4 bilaterally. Neurological: No focal deficits. Strength and sensation are grossly intact. - Labs CBC & Chem 7: 07/02/16 08:07 07/02/16 08:07 Assessment and Plan (1) Clostridium difficile colitis Status: Acute (2) Warfarin-induced coagulopathy Status: Chronic (3) Personal history of DVT (deep vein thrombosis) Status: Chronic (4) History of pulmonary embolism Status: Chronic (5) History of atrial fibrillation Status: Chronic Plan: 1. Continue with current antibiotic therapy. Diet as tolerated. Encourage yogurt 3 times daily with meals. 2. Outpatient colonoscopy recommended in 4-6 weeks. Return to GI office in 3 weeks. 4. Will follow as needed. Assessment and plan of care discussed with Dr. May
--- NOTE | 2016-07-03 10:04 | CONS ---
DATE OF CONSULTATION: Mr. Xiao is an 85-year-old gentleman who is seen for cardiac evaluation. This patient's medical history is reviewed. This patient has a known history of coronary artery disease with a prior history of coronary artery bypass surgery, cardiac catheterization. Patient was admitted in the hospital with symptoms of diarrhea for 10 days. He did not have any definite fever or chills and patient denies any history of significant shortness of breath. This patient had a recent prostate surgery in February or March. Since then, the patient has been having problem with urinary tract infection. He did have a Tapia catheter for some time and was treated with antibiotics. Patient also has some history of congestive cardiac failure. He is moderately active physically. He denies any history of orthopnea or PND. Past medical history includes history of atrial fibrillation, congestive cardiac failure, hypertension, hyperlipidemia, and coronary artery bypass surgery. Patient's home medications included Coumadin. Theophylline 400 mg daily, omeprazole 20 mg daily, melatonin, Mevacor, Imdur 60 mg daily, Lasix 40 mg b.i.d., vitamin C, Cordarone 200 mg daily and Zyloprim. Review of systems is otherwise unremarkable. Physical examination at present reveals an 85-year-old gentleman who does not appear to be in any acute distress. Patient's blood pressure is 110/74 mmHg, oxygen saturation is 93%. Patient is afebrile. Head/HEENT examination is negative. Neck is supple. Jugular venous pressure is mildly elevated. Both the carotid pulses are felt. There is no bruit. Chest is symmetrical. HEART: The PMI is not felt. First heart sound is normal. Second heart sound is soft. There is a grade 2 to 3/6 ejection systolic murmur noted which peaks in mid to late systole. Lungs are fairly clear to auscultation and percussion. Abdomen is soft. EXTREMITIES: Peripheral pulsations are 1+. There is a trace leg edema. Chest x-ray is suggestive for mild congestive cardiac failure. Stool is positive for C. difficile. The patient's of potassium is 3.1 and the creatinine is 1.59. Patient's hemoglobin is 11.5. FINAL IMPRESSION: 1. This patient is admitted with C. difficile colitis and diarrhea. Patient has evidence of mild congestive cardiac failure on the chest x-ray. The patient is not in any acute respiratory distress. 2. Patient currently is in sinus rhythm rate. 3. Patient has murmur of aortic stenosis. He will be evaluated with echocardiogram to rule out severe aortic stenosis. At present, I would recommend to continue the patient on Lasix 40 mg b.i.d. We will check the BNP level and echocardiogram.
--- NOTE | 2016-07-03 10:56 | ECHOF ---
Referral Reason:chf MEASUREMENTS -------- HEIGHT: 170.2 cm WEIGHT: 78.5 kg BP: 99/55 IVSd: 1.3 cm (0.6 - 1.1) LVIDd: 4.4 cm (3.9 - 5.3) LVPWd: 1.4 cm (0.6 - 1.1) IVSs: 1.5 cm LVIDs: 3.4 cm LVPWs: 1.6 cm LAESV Index (A-L): 49.49 ml/m Ao Diam: 3.6 cm (2.0 - 3.7) AV Cusp: 0.7 cm (1.5 - 2.6) MV EXCURSION: 14.577 mm (> 18.000) MV EF SLOPE: 56 mm/s (70 - 150) EPSS: 1.0 cm MV E Wayne: 1.36 m/s MV DecT: 189 ms MV A Wayne: 0.58 m/s MV E/A Ratio: 2.33 AV maxP.78 mmHg AV meanP.78 mmHg AR PHT: 387 ms RAP: 5.00 mmHg RVSP: 54.16 mmHg FINDINGS -------- Sinus rhythm. This was a technically good study. There is mild concentric left ventricular hypertrophy. There is severe global hypokinesis of LV . Overall left ventricular systolic function is moderate-severely impaired with, an EF between 30 - 35 %. Both the mean atrial pressure as well as the LV end diastolic pressure is elevated 36.01. The right ventricle is normal in size and function. LA is severely dilated >40 ml/m2 The right atrium is normal in size. There is mild aortic regurgitation. There is moderate aortic stenosis present. Peak/mean gradient across the Aortic Valve is 42.78mmHg / 24.78mmHg. ISABEL is suggested The mitral valve leaflets are mildly thickened. Mild mitral annular calcification present. Moderate mitral regurgitation is present. [id number] tricuspid regurgitation present. There is moderate pulmonary hypertension. The right ventricular systolic pressure, as measured by Doppler, is 54.16mmHg. Pulmonic valve appears structurally normal. The aortic root size is normal. The pericardium is normal. CONCLUSIONS -------- 1. Sinus rhythm. 2. There is moderate aortic stenosis present. 3. Peak/mean gradient across the Aortic Valve is 42.78mmHg / 24.78mmHg. 4. ISABEL is suggested 5. The mitral valve leaflets are mildly thickened. 6. Mild mitral annular calcification present. 7. Moderate mitral regurgitation is present. 8. Khhu-mm-boyjpsoz tricuspid regurgitation present. 9. There is moderate pulmonary hypertension. 10. The right ventricular systolic pressure, as measured by Doppler, is 54.16mmHg. 11. Pulmonic valve appears structurally normal. 12. This was a technically good study. 13. The aortic root size is normal. 14. The pericardium is normal. 15. There is mild concentric left ventricular hypertrophy. 16. There is severe global hypokinesis of LV . 17. Both the mean atrial pressure as well as the LV end diastolic pressure is elevated 36.01. 18. The right ventricle is normal in size and function. 19. LA is severely dilated >40 ml/m2 20. The right atrium is normal in size. 21. There is mild aortic regurgitation. NECKTIES PAINTER: Annmarie Zarate RDCS
[2016-07-03 11:05] LABS: Basophils % (A) 1 %; CH 30.6; CHCM 31.9; Eosinophils # (A) 0.2 k/uL (0-0.7); Eosinophils % (A) 5 %; HCT 37.2 % (39.0-53.0); HDW 3.39; HGB 11.6 gm/dL (13.0-17.5); Hypochromasia Slight; Luc # (Auto) 0.08; Luc % (Auto) 2; Lymphocytes # (A) 1.3 k/uL (1.0-4.8); Lymphocytes % (A) 32 %; MCH 30.1 pg (25.0-35.0); MCHC 31.3 g/dL (31.0-37.0); MCV 96.3 fL (80.0-100.0); Mean Platelet Volume 8.1; Monocytes # (A) 0.2 k/uL (0-1.0); Monocytes % (A) 5 %; Neutrophils # (A) 2.3 k/uL (1.3-7.7); Neutrophils % (A) 55 %; RBC 3.86 m/uL (4.30-5.90); RDW 15.7 % (11.5-15.5); WBC 4.1 k/uL (3.8-10.6); WBC (Perox) 4.19
[2016-07-03 11:12] LABS: INR 2.4 (<1.1); Prothrombin Time 23.1 sec (9.0-12.0)
[2016-07-03] MEDS: CHOLESTYRAMINE (WITH SUGAR) 4 GM PACKET PO SCH ×3 (11:14→18:13)
[2016-07-03 11:17] LABS: Calcium 8.4 mg/dL (8.4-10.2); Magnesium 2.1 mg/dL (1.6-2.3); Potassium 3.3 mmol/L (3.5-5.1)
[2016-07-03] MEDS ORDERED: Potassium Replacement Protocol 1 EACH MISC MISCELLANE PRN (11:40)
[2016-07-03] MEDS: POTASSIUM CHLORIDE 10 MEQ, LIDOCAINE 2% INJ 10 MG in SODIUM CHLORIDE 0.9% 100 ML IV SCH ×2 (12:04→14:04)
--- NOTE | 2016-07-03 13:46 | CDI ---
In responding to this query, please exercise your independent professional judgment. The [facility] Coding Staff and Clinical Documentation Specialists appreciate your assistance in clarifying documentation, maintaining compliance with coding guidelines, accurately documenting patients condition and capturing severity of illness. The fact that a question is asked does not imply that any particular answer is desired or expected. Communication forms are a method of clarifying documentation and are not made part of the Legal Health Record. Thank you in advance for your clarification. Last Revision, December 2014 Imtiaz Blackwood [address] [facility] [place] [address] Documentation Clarification Form Date: 07/03/2016 12:47:00 PM From: [place] Eddie Admit Date: 07/01/2016 7:26:00 PM Patient Name: Emanuel Xiao Visit Number: [id number] Discharge Date: Dr. Alex Bonilla Atrial fibrillation is documented in the H&P and your consult on 07/03/16 History/Risk Factors: Atrial Fibrillation, CHF, DVT, Hypertension, CAD, Clinical Indicators: Per History. Vital signs: 91/64 71 18 98.3 96 % 2/L NC EKG/telemetry: Sinus rhythm rate ( progress notes 07/03/16) ECHO: Sinus rhythm, severe global hypokinesis, of LV. Left ventricular systolic function is moderate-severely impaired with an EF between 30-35 % Moderate pulmonary hypotension Treatment: Coumadin PO Monitor PT/INR In your professional opinion, can you please clarify the type of atrial fibrillation, if known? Chronic/Permanent Paroxysmal Persistent Other, please specify Unable to determine Please document in your progress notes in order to capture severity of illness and risk of mortality. Include clinical findings that support your diagnosis. FYI: Press F11 to launch patient chart Place X here if this finding has no clinical significance, is not applicable or if you are not able to provide any additional documentation. CRISTA
[2016-07-03] MEDS ORDERED: WARFARIN 3 MG TAB PO SCH (18:00)
[2016-07-03] MEDS: MELATONIN 3 MG TABLET PO SCH (20:57)
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
[2016-07-04] MEDS: ALPRAZolam 0.25 MG TAB PO PRN ×2 (00:23→10:23)
[2016-07-04] MEDS: VANCOMYCIN ORAL SOLUTION 250 MG/5 ML BOTTLE PO SCH ×5 (00:23→23:21)
[2016-07-04] MEDS: metroNIDAZOLE-NS PMX 500 MG in SALINE 1 100ML.BAG IVPB SCH (00:23)
[2016-07-04] MEDS: CHERRY FLAVOR 60 ML BOTTLE PO PRN ×4 (00:24→18:04)
[2016-07-04] MEDS ORDERED: FUROSEMIDE 10 MG/ML 4 ML VIAL IV STA (00:46)
--- NOTE | 2016-07-04 01:14 | XR ---
EXAM: XR Chest, 1 View CLINICAL HISTORY: Short of breath. TECHNIQUE: Frontal view of the chest. COMPARISON: CXR dated 07/02/2016. FINDINGS: Lungs: Increased pulmonary vascular congestion. New opacities in the bilateral lungs. Pleural space: No evidence of large pleural effusion or pneumothorax. Heart: Enlarged cardiac silhouette. Mediastinum: Stable postsurgical changes projecting over the mediastinum. Bones/joints: Stable osseous structures. IMPRESSION: Increased pulmonary vascular congestion and opacities in the bilateral lungs suggestive of worsening congestive heart failure with pulmonary edema. Superimposed infectious or inflammatory process not entirely excluded. Recommend clinical correlation and follow-up imaging.
[2016-07-04 01:22] LABS: Glucose,Whole Blood 187 mg/dL (75-99)
[2016-07-04] MEDS ORDERED: ALPRAZolam 0.25 MG TAB PO STA (01:25)
[2016-07-04] MEDS: THEOPHYLLINE 24 HOUR 400 MG CAP.ER.24H PO SCH (08:44)
[2016-07-04] MEDS: PANTOPRAZOLE 40 MG TABLET PO SCH (08:44)
[2016-07-04] MEDS: metroNIDAZOLE 500 MG TAB PO SCH ×3 (08:44→23:17)
[2016-07-04] MEDS: FUROSEMIDE 40 MG TAB PO SCH (08:44)
[2016-07-04] MEDS: ASPIRIN 325 MG TAB PO SCH (08:44)
[2016-07-04] MEDS: ALLOPURINOL 100 MG TAB PO SCH ×2 (08:44→20:21)
[2016-07-04] MEDS: CHOLESTYRAMINE (WITH SUGAR) 4 GM PACKET PO SCH ×3 (10:06→17:22)
[2016-07-04 10:11] LABS: Calcium 8.2 mg/dL (8.4-10.2); Potassium 3.6 mmol/L (3.5-5.1)
[2016-07-04 10:15] LABS: CH 30.1; CHCM 31.2; HCT 35.4 % (39.0-53.0); HGB 11.2 gm/dL (13.0-17.5); Hypochromasia Moderate; Immature Gran Flag Marked; MCH 30.7 pg (25.0-35.0); MCHC 31.7 g/dL (31.0-37.0); MCV 96.8 fL (80.0-100.0); RBC 3.66 m/uL (4.30-5.90); RDW 15.6 % (11.5-15.5); WBC 7.2 k/uL (3.8-10.6); WBC (Perox) 7.04
[2016-07-04 10:18] LABS: INR 2.9 (<1.1); Prothrombin Time 27.6 sec (9.0-12.0)
[2016-07-04] MEDS: AMIODARONE 200 MG TAB PO SCH (10:28)
[2016-07-04] MEDS: ISOSORBIDE MONONITRATE ER 60 MG TAB.ER.24H PO SCH (10:28)
--- NOTE | 2016-07-04 10:52 | XR ---
EXAMINATION TYPE: XR chest 1V portable DATE OF EXAM: 07/04/2016 9:21 AM COMPARISON: 07/04/2016 earlier in day INDICATION: CHF TECHNIQUE: Single frontal view of the chest is obtained. FINDINGS: The heart size is enlarged. The pulmonary vasculature is prominent. There is diffuse increased lung markings bilaterally. Correlate for alveolar pulmonary edema. This is slightly improved IMPRESSION: 1. Correlate for congestive heart failure
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
[2016-07-04 12:04] LABS: Glucose,Whole Blood 110 mg/dL (75-99)
[2016-07-04 12:04] LABS: Add Differential Manual Differential
[2016-07-04 12:07] LABS: Nucleated Red Blood Cells 0 /100 WBC (0-0)
[2016-07-04 12:10] LABS: Manual Review Performed; Total Cells Counted 200
--- NOTE | 2016-07-04 12:24 | CDI ---
In responding to this query, please exercise your independent professional judgment. The [facility] Coding Staff and Clinical Documentation Specialists appreciate your assistance in clarifying documentation, maintaining compliance with coding guidelines, accurately documenting patients condition and capturing severity of illness. The fact that a question is asked does not imply that any particular answer is desired or expected. Communication forms are a method of clarifying documentation and are not made part of the Legal Health Record. Thank you in advance for your clarification. Last Revision, December 2014 Imtiaz Blackwood [address] [facility] [place] [address] Documentation Clarification Form Date: 07/04/2016 12:05:00 PM From: [place] Morgan Admit Date: 07/01/2016 7:26:00 PM Patient Name: Emanuel Xiao Visit Number: [id number] Discharge Date: Dr. João Irvin History/Risk Factors: Atrial Fibrillation, CHF, DVT, GERD, Hypertension, Renal disease On admission: BUN 18, CR 1.59 GFR 51 Current BUN 23 CR 1.83 GFR: 35 Patients Baseline: Not noted. Clinical Indicators: Diarrhea for the last 10 days, without any abdominal pain. Treatment: Monitor Labs IV fluids ( now DC) In order to capture the severity of condition, please clarify if the condition signifies: CKD Stage 1 (GFR > 90) CKD Stage 2 (GFR 60-89) CKD Stage 3 (GFR 30-59) CKD Stage 4 (GFR 15-29) CKD Stage 5 (GFR <15) ESRD Unable to determine Other condition, please specify Please document in your progress notes and discharge summary in order to capture severity of illness and risk of mortality. Include clinical findings that support your diagnosis. FYI: Press F11 to launch patient chart. Place X here if this finding has no clinical significance, is not applicable or if you are not able to provide any additional documentation. CRISTA
[2016-07-04] MEDS ORDERED: NOREPINEPHRIN 4 MG-0.9% NS PMX 4 MG/250 ML ML IV ONE (12:42)
[2016-07-04] MEDS: FUROSEMIDE 250 MG in SODIUM CHLORIDE 0.9% 225 ML IVP SCH (12:45)
--- NOTE | 2016-07-04 12:57 | PN ---
This patient was admitted to the hospital with C. difficile colitis. Patient has a history of congestive cardiac failure. On initial examination, patient was found to be in mild heart failure. Echocardiogram is suggestive of moderate to severely impaired left ventricular systolic function as well as some moderate to severe degree of aortic stenosis. Patient developed more shortness of breath and hypoxic during the night. Patient was given IV Lasix and BiPAP. Subsequently, this morning patient was transferred to the intensive care unit. At present patient is feeling comfortable. He is on BiPAP and oxygen saturation is 92% on the BiPAP. Blood pressure is 75 to 80 systolic. His skin is dry and warm. First and second heart sounds are normal. There is a short ejection systolic murmur noted. Lung examination reveals bilateral basal rales. Patient's chest x-ray shows evidence of worsening of the heart failure. FINAL IMPRESSION: This patient has developed acute on chronic systolic heart failure. Patient has a significant left ventricular dysfunction as well as moderate to severe aortic stenosis. His overall prognosis is guarded. Patient is going to be started on Lasix drip. If the hypotension persists, patient may need treatment with Levophed and possibly dobutamine. After the patient's condition is stabilized, patient will need to be evaluated with ISABEL and may be considered for possible TAVR.
[2016-07-04] MEDS: LEVALBUTEROL NEB 1.25 MG/3 ML AMP INHALATION SCH ×2 (13:30→19:40)
[2016-07-04] MEDS ORDERED: FUROSEMIDE 10 MG/ML 4 ML VIAL IV SCH ×2 (16:00→21:00)
[2016-07-04] MEDS: WARFARIN 3 MG TAB PO SCH ×2 (18:05→18:10)
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
[2016-07-04] MEDS: MELATONIN 3 MG TABLET PO SCH (20:23)
[2016-07-04] MEDS: DOBUTamine DRIP 500 MG in DEXTROSE/WATER 1 250ML.BAG IV SCH (20:56)
[2016-07-05 04:52] LABS: Basophils % (A) 0 %; CH 30.4; CHCM 32.2; Eosinophils % (A) 0 %; HCT 37.7 % (39.0-53.0); HDW 3.44; HGB 11.7 gm/dL (13.0-17.5); Hypochromasia Slight; Luc # (Auto) 0.05; Luc % (Auto) 1; Lymphocytes # (A) 0.7 k/uL (1.0-4.8); Lymphocytes % (A) 9 %; MCH 29.4 pg (25.0-35.0); MCV 94.8 fL (80.0-100.0); Mean Platelet Volume 7.7; Monocytes # (A) 0.3 k/uL (0-1.0); Monocytes % (A) 4 %; Neutrophils # (A) 6.1 k/uL (1.3-7.7); Neutrophils % (A) 86 %; Poikilocytosis Slight; RBC 3.97 m/uL (4.30-5.90); WBC 7.1 k/uL (3.8-10.6)
[2016-07-05 05:00] LABS: INR 3.5 (<1.1); Prothrombin Time 34.2 sec (9.0-12.0)
[2016-07-05 05:02] LABS: Calcium 8.4 mg/dL (8.4-10.2); Potassium 3.2 mmol/L (3.5-5.1)
[2016-07-05] MEDS ORDERED: Potassium Replacement Protocol 1 EACH MISC MISCELLANE PRN ×2 (05:59→19:58)
[2016-07-05] MEDS: VANCOMYCIN ORAL SOLUTION 250 MG/5 ML BOTTLE PO SCH ×3 (06:16→19:34)
[2016-07-05] MEDS: POTASSIUM CHLORIDE ORAL LIQUID 40 MEQ/30 ML CUP NG-TUBE SCH ×5 (06:49→22:02)
--- NOTE | 2016-07-05 07:28 | XR ---
EXAMINATION TYPE: XR chest 1V DATE OF EXAM: 07/05/2016 6:39 AM COMPARISON: 07/04/2016 HISTORY: 85-year-old male shortness of breath TECHNIQUE: Single frontal view of the chest is obtained. FINDINGS: Median sternotomy wires are present with post-CABG clips in the mediastinum. Heart remains mildly enl arged. Continued interstitial and less confluent airspace opacities especially in the upper to mid rowena ngs. Suspect trace effusions. IMPRESSION: CHF with persistent but improving interstitial pulmonary edema.
[2016-07-05] MEDS: metroNIDAZOLE 500 MG TAB PO SCH ×2 (11:15→19:32)
[2016-07-05] MEDS: ASPIRIN 325 MG TAB PO SCH (11:18)
[2016-07-05] MEDS: LEVALBUTEROL NEB 1.25 MG/3 ML AMP INHALATION SCH ×3 (11:18→20:16)
[2016-07-05] MEDS: ALLOPURINOL 100 MG TAB PO SCH ×2 (11:18→21:27)
[2016-07-05] MEDS: AMIODARONE 200 MG TAB PO SCH (11:18)
[2016-07-05] MEDS: SODIUM CHLORIDE 0.9% 1,000 ML IV SCH (11:19)
[2016-07-05] MEDS: CHOLESTYRAMINE (WITH SUGAR) 4 GM PACKET PO SCH ×3 (11:19→19:47)
[2016-07-05] MEDS: PANTOPRAZOLE 40 MG TABLET PO SCH (11:19)
--- NOTE | 2016-07-05 11:41 | P.PN ---
Subjective Principal diagnosis: Acute respiratory failure secondary to congestive heart failure, pulmonary edema. And acute C. difficile colitis. This is a very pleasant 85-year-old gentleman with a known history of coronary artery disease with previous coronary artery bypass grafting, congestive heart failure, atrial fibrillation anticoagulated with warfarin, amiodarone for rate control, DVT, gastroesophageal reflux disease, hypertension, hyperlipidemia, prostate per trephine status post TURP in April 2016. He had been following with his physician Dr. Mirza in [place] regarding ongoing issues with diarrhea for several days. He was subsequently at [facility] and was a direct admit to here on 07/01/2016. He was found to be C. diff positive. GI services were consulted and was initiated on Questran, Flagyl and vancomycin and the plan is for an outpatient colonoscopy in 4-6 weeks. While here he has developed significant worsening shortness of breath and evidence of worsening congestive heart failure. Last night he received 40 mg of IV Lasix and was placed on BiPAP. He is still in respiratory distress this morning and we are consulted for the same. He is seen in consultation on the regular medical floor. He is awake and alert. He is quite short of breath with minimal conversation. He is restless with the BiPAP. His chest x-ray shows worsening congestive heart failure and pulmonary edema. An echocardiogram had revealed severe global left ventricular hypokinesia. There is also noted moderate aortic stenosis and moderate pulmonary hypertension. Yesterday he is maintaining O2 saturations in the 90s on 2 L/m per nasal cannula. He developed suspected flash pulmonary edema approximately 1:00 this morning was placed on BiPAP and 80% FiO2 to maintain O2 saturations in the 90s. Patient was reevaluated today on 07/05/2016, remains on Lasix drip, he is also on norepinephrine drip at 7.5 mcg/min, Dobutrex at 2.5 mcg/kg/m, Lasix 10 mg per hour drip. Chest x-ray is showing improvement. Urine output is excellent, patient diuresed over 3 L overnight, and he is negative balance of 2.5 L so far. Chest x-ray continues to show some pulmonary edema, but improved compared to yesterday. Even hemodynamics-lopes patient seems to be doing better blood pressure seems to be marginal with relatively low dose of norepinephrine and Dobutrex. Labs were reviewed he had a relatively normal CBC no evidence of leukocytosis. INR is 3.5. Electrolytes were reviewed and his bicarb is 19, BUN is 26 and creatinine is improving down to 1.63 from 1.83 yesterday. Patient was placed on high flow nasal cannula, 15 L, O2 saturations are in the low 90s. He definitely seems to be more comfortable, and he has been off BiPAP all this morning. Objective - Vital Signs Vital signs: Vital Signs Temp 100 F H 07/05/16 08:30 Pulse 91 07/05/16 11:26 Resp 29 H 07/05/16 11:18 BP 89/50 07/05/16 11:00 Pulse Ox 97 07/05/16 11:00 Intake & Output 07/04/16 07/05/16 07/05/16 18:59 06:59 18:59 Intake Total 391.3 654 344 Output Total 850 2600 1075 Balance -458.7 -1946 -731 Weight 79 kg 78.6 kg Intake: IV 281.3 654 244 Sodium Chloride 0.9% 1, 20 000 ml @ 20 mls/hr IV . Q24H [facility] Rx#:[id number] Sodium Chloride 0.9% 1, 120 620 110 000 ml @ 60 mls/hr IV . [id number] [facility] Rx#:[id number] norepinephrine, 4mg/250 161.3 34 114 Intake, IV Titration 110 Amount Furosemide 250 mg In 10 Sodium Chloride 0.9% 225 ml @ 10 MG/HR 10 mls/hr IVP .Q24H [facility] Rx#: [id number] metroNIDAZOLE-NS PMX 500 100 mg In Saline 1 100ml.bag @ 100 mls/hr IVPB Q8HR [facility] Rx#:[id number] Oral 100 Output: Urine 850 2600 1075 Stool 0 0 Other: Voiding Method Indwelling Catheter Indwelling Catheter Indwelling Catheter - Exam ENERAL EXAM: Alert, restless, mild respiratory distress. HEAD: Normocephalic. EYES: Normal reaction of pupils, equal size. NOSE: Clear with pink turbinates. THROAT: No erythema or exudates. NECK: No masses, mild JVD. CHEST: No chest wall deformity. LUNGS: Equal air entry with crackles in the posterior bases.. CVS: S1 and S2 normal with an audible murmur, regular rhythm. ABDOMEN: No hepatosplenomegaly, normal bowel sounds, no guarding or rigidity. SPINE: No scoliosis or deformity SKIN: No rashes CENTRAL NERVOUS SYSTEM: No focal deficits, tone is normal in all 4 extremities. Extremities: There is trace peripheral edema. No clubbing, no cyanosis. Peripheral pulses are intact. - Labs CBC & Chem 7: 07/05/16 04:25 07/05/16 04:25 Labs: Abnormal Lab Results - Last 24 Hours (Table) 07/04/16 07/04/16 07/05/16 Range/Units 09:43 12:03 04:25 RBC 3.97 L (4.30-5.90) m/uL Hgb 11.7 L (13.0-17.5) gm/dL Hct 37.7 L (39.0-53.0) % RDW 16.0 H (11.5-15.5) % Plt Count 138 L (150-450) k/uL Lymphocytes # 0.7 L (1.0-4.8) k/uL Lymphocytes # (Manual) 0.5 L (1.0-4.8) k/uL PT (9.0-12.0) sec Sodium (137-145) mmol/L Potassium (3.5-5.1) mmol/L Carbon Dioxide (22-30) mmol/L BUN (9-20) mg/dL Creatinine (0.66-1.25) mg/dL Glucose (74-99) mg/dL POC Glucose (mg/dL) 110 H (75-99) mg/dL 07/05/16 07/05/16 Range/Units 04:25 04:25 RBC (4.30-5.90) m/uL Hgb (13.0-17.5) gm/dL Hct (39.0-53.0) % RDW (11.5-15.5) % Plt Count (150-450) k/uL Lymphocytes # (1.0-4.8) k/uL Lymphocytes # (Manual) (1.0-4.8) k/uL PT 34.2 H (9.0-12.0) sec Sodium 136 L (137-145) mmol/L Potassium 3.2 L (3.5-5.1) mmol/L Carbon Dioxide 19 L (22-30) mmol/L BUN 26 H (9-20) mg/dL Creatinine 1.63 H (0.66-1.25) mg/dL Glucose 112 H (74-99) mg/dL POC Glucose (mg/dL) (75-99) mg/dL Microbiology - Last 24 Hours (Table) 07/02/16 22:30 Stool Culture - Preliminary Stool Assessment and Plan Plan: Impression: 1 acute hypoxic respiratory failure secondary to acute pulmonary edema secondary to systolic cardiomyopathy and LV dysfunction. 2 moderate to severe aortic stenosis 3 acute C. difficile colitis and sepsis 4 acute shock, which is a combination of septic and cardiogenic in nature. 5 multiple comorbidities including hypertension, coronary artery disease and previous CABG, hyperlipidemia, GERD, history of benign prostatic hypertrophy a previous TURP. And history of chronic atrial fibrillation maintained on Coumadin. History of pulmonary hypertension. Recommendation: Continue present supportive care measures, continue norepinephrine and Dobutrex, continue Lasix drip, monitor fluid status and electrolyte status closely while in the ICU. There is definite improvement, however the patient remains critically ill, and he will be kept in the intensive care unit. Critical care time is 32 minutes. Continue treatment of his colitis Time with Patient: Greater than 30
[2016-07-05] MEDS: FUROSEMIDE 250 MG in SODIUM CHLORIDE 0.9% 225 ML IVP SCH (12:30)
[2016-07-05] MEDS: CHERRY FLAVOR 60 ML BOTTLE PO PRN ×2 (13:14→19:35)
[2016-07-05] MEDS: NOREPINEPHRIN 4 MG-0.9% NS PMX 4 MG/250 ML ML IV SCH (14:02)
--- NOTE | 2016-07-05 14:32 | PN ---
Emanuel Xiao is an elderly gentleman, a patient of Dr. Lozoya who was transferred from the fifth floor, Dr. Dr. Kal Bonilla saw him. He is initially admitted with C. diff colitis. He also has congestive heart failure and is quite short of breath at rest. At this time, he is on IV dobutamine, IV Lasix, a low dose of norepinephrine which is being tapered off. Breath sounds are reduced bilaterally. He has a mild aortic stenosis. Abdomen is soft, nontender. There is very mild bilateral edema. IMPRESSION: 1. Severely reduced function. 2. Moderate aortic stenosis. 3. Congestive heart failure, class III to IV. Continue inotropic agents and IV diuretics for now. Patient is allergic to BETA BLOCKERS.
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
[2016-07-05] MEDS: WARFARIN 3 MG TAB PO SCH (19:40)
[2016-07-05] MEDS: DOBUTamine DRIP 500 MG in DEXTROSE/WATER 1 250ML.BAG IV SCH (20:02)
[2016-07-05] MEDS: MELATONIN 3 MG TABLET PO SCH (21:27)
[2016-07-06] MEDS: metroNIDAZOLE 500 MG TAB PO SCH ×4 (00:08→23:58)
[2016-07-06] MEDS: VANCOMYCIN ORAL SOLUTION 250 MG/5 ML BOTTLE PO SCH ×5 (00:09→23:57)
[2016-07-06] MEDS: NOREPINEPHRIN 4 MG-0.9% NS PMX 4 MG/250 ML ML IV SCH ×2 (00:47→20:02)
[2016-07-06 04:25] LABS: Basophils % (A) 0 %; CH 30.3; CHCM 33.3; Eosinophils % (A) 0 %; HCT 34.4 % (39.0-53.0); HDW 3.59; HGB 11.5 gm/dL (13.0-17.5); Luc # (Auto) 0.06; Luc % (Auto) 1; Lymphocytes # (A) 0.8 k/uL (1.0-4.8); Lymphocytes % (A) 9 %; MCH 30.5 pg (25.0-35.0); MCHC 33.4 g/dL (31.0-37.0); MCV 91.3 fL (80.0-100.0); Mean Platelet Volume 8.1; Monocytes # (A) 0.3 k/uL (0-1.0); Monocytes % (A) 3 %; Neutrophils # (A) 7.9 k/uL (1.3-7.7); Neutrophils % (A) 88 %; Poikilocytosis Slight; RBC 3.76 m/uL (4.30-5.90); RDW 15.9 % (11.5-15.5); WBC (Perox) 9.26
[2016-07-06 04:33] LABS: Prothrombin Time 54.8 sec (9.0-12.0)
[2016-07-06 04:38] LABS: INR 5.5 (<1.1)
[2016-07-06 04:40] LABS: Calcium 8.5 mg/dL (8.4-10.2); Magnesium 1.7 mg/dL (1.6-2.3); Phosphorous 2.4 mg/dL (2.5-4.5); Potassium 4.1 mmol/L (3.5-5.1)
[2016-07-06] MEDS ORDERED: Phosphorus Replacement Protoco 1 EACH MISC MISCELLANE PRN (05:04)
[2016-07-06] MEDS ORDERED: Magnesium Replacement Protocol 1 EACH MISC MISCELLANE PRN (05:05)
[2016-07-06] MEDS: MAGNESIUM SULFATE-D5W PMX 1 GM in DEXTROSE/WATER 1 100ML.BAG IVPB SCH ×2 (05:24→08:03)
[2016-07-06] MEDS ORDERED: SODIUM PHOSPHATE 10 MMOL in SODIUM CHLORIDE 0.9% 250 ML IVPB ONE (06:00)
[2016-07-06] MEDS: LEVALBUTEROL NEB 1.25 MG/3 ML AMP INHALATION SCH ×3 (07:38→19:42)
[2016-07-06] MEDS: ALLOPURINOL 100 MG TAB PO SCH ×2 (08:04→21:29)
[2016-07-06] MEDS: PANTOPRAZOLE 40 MG TABLET PO SCH (08:04)
[2016-07-06] MEDS: AMIODARONE 200 MG TAB PO SCH (08:04)
[2016-07-06] MEDS: SODIUM CHLORIDE 0.9% 1,000 ML IV SCH (08:05)
--- NOTE | 2016-07-06 08:13 | XR ---
EXAMINATION TYPE: XR chest 1V portable DATE OF EXAM: 07/06/2016 COMPARISON: Prior chest x-ray 05 Jul 2016 HISTORY: Congestive heart failure TECHNIQUE: Single frontal view of the chest is obtained. FINDINGS: Patient is post median sternotomy and the heart is enlarged. Interstitium is diffusely inc reased. There is no evident pneumothorax or sizable effusion. There is likely mixed airspace disease. IMPRESSION: Findings suggest congestive heart failure and pulmonary edema, correlate to exclude pneu monia, follow-up recommended.
[2016-07-06] MEDS: CHOLESTYRAMINE (WITH SUGAR) 4 GM PACKET PO SCH ×3 (10:24→19:56)
[2016-07-06] MEDS: FUROSEMIDE 250 MG in SODIUM CHLORIDE 0.9% 225 ML IVP SCH (10:45)
--- NOTE | 2016-07-06 10:53 | P.PN ---
Subjective Principal diagnosis: Acute respiratory failure secondary to congestive heart failure, pulmonary edema. And acute C. difficile colitis. This is a very pleasant 85-year-old gentleman with a known history of coronary artery disease with previous coronary artery bypass grafting, congestive heart failure, atrial fibrillation anticoagulated with warfarin, amiodarone for rate control, DVT, gastroesophageal reflux disease, hypertension, hyperlipidemia, prostate per trephine status post TURP in April 2016. He had been following with his physician Dr. Mirza in [place] regarding ongoing issues with diarrhea for several days. He was subsequently at [facility] and was a direct admit to here on 07/01/2016. He was found to be C. diff positive. GI services were consulted and was initiated on Questran, Flagyl and vancomycin and the plan is for an outpatient colonoscopy in 4-6 weeks. While here he has developed significant worsening shortness of breath and evidence of worsening congestive heart failure. Last night he received 40 mg of IV Lasix and was placed on BiPAP. He is still in respiratory distress this morning and we are consulted for the same. He is seen in consultation on the regular medical floor. He is awake and alert. He is quite short of breath with minimal conversation. He is restless with the BiPAP. His chest x-ray shows worsening congestive heart failure and pulmonary edema. An echocardiogram had revealed severe global left ventricular hypokinesia. There is also noted moderate aortic stenosis and moderate pulmonary hypertension. Yesterday he is maintaining O2 saturations in the 90s on 2 L/m per nasal cannula. He developed suspected flash pulmonary edema approximately 1:00 this morning was placed on BiPAP and 80% FiO2 to maintain O2 saturations in the 90s. Patient was reevaluated today on 07/05/2016, remains on Lasix drip, he is also on norepinephrine drip at 7.5 mcg/min, Dobutrex at 2.5 mcg/kg/m, Lasix 10 mg per hour drip. Chest x-ray is showing improvement. Urine output is excellent, patient diuresed over 3 L overnight, and he is negative balance of 2.5 L so far. Chest x-ray continues to show some pulmonary edema, but improved compared to yesterday. Even hemodynamics-lopes patient seems to be doing better blood pressure seems to be marginal with relatively low dose of norepinephrine and Dobutrex. Labs were reviewed he had a relatively normal CBC no evidence of leukocytosis. INR is 3.5. Electrolytes were reviewed and his bicarb is 19, BUN is 26 and creatinine is improving down to 1.63 from 1.83 yesterday. Patient was placed on high flow nasal cannula, 15 L, O2 saturations are in the low 90s. He definitely seems to be more comfortable, and he has been off BiPAP all this morning. Patient was reevaluated today on 07/06/2016, remains on Lasix drip at 10 mg per hour, norepinephrine drip at my 8 mcg/m, Dobutrex at 5 mcg/kg/m. Seems to be clinically better, however the chest x-ray is showing slight worsening of his interstitial edema. Patient is in negative balance, however I was expecting more negative balance today than I have noted on the chart. Patient failed his swallow evaluation, and it was felt that he may have some component of aspiration in addition to his interstitial edema. At any rate since the patient seems to be clinically better, I will continue with the same treatment plan including Lasix Dobutrex and norepinephrine. Patient tells me that he is feeling better compared to when he fell 2 days ago. Labs were reviewed WBC count is 9 hemoglobin is 11.5 *Normal BUN is down to 22 creatinine is down to 1.52. Objective - Vital Signs Vital signs: Vital Signs Temp 97.8 F 07/06/16 08:00 Pulse 107 H 07/06/16 10:00 Resp 20 07/06/16 10:00 BP 82/57 07/06/16 10:00 Pulse Ox 95 07/06/16 10:00 Intake & Output 07/05/16 07/06/16 07/06/16 18:59 06:59 18:59 Intake Total 1136.5 782.421 732.5 Output Total 2445 2955 825 Balance -1308.5 -2172.579 -92.5 Weight 78.6 kg 74.1 kg Intake: IV 362 250 60 Sodium Chloride 0.9% 1, 90 250 60 000 ml @ 20 mls/hr IV . Q24H [facility] Rx#:[id number] Sodium Chloride 0.9% 1, 110 000 ml @ 60 mls/hr IV . [id number] [facility] Rx#:[id number] norepinephrine, 4mg/250 162 Intake, IV Titration 237.5 532.421 672.5 Amount DOBUTamine DRIP 500 mg In 136.752 Dextrose/Water 1 250ml. bag @ 2.5 MCG/KG/MIN 5.92 mls/hr IV .Q24H [facility] Rx#: [id number] Furosemide 250 mg In 237.5 222.5 Sodium Chloride 0.9% 225 ml @ 10 MG/HR 10 mls/hr IVP .Q24H [facility] Rx#: [id number] Magnesium Sulfate-D5w Pmx 200 1 gm In Dextrose/Water 1 100ml.bag @ 100 mls/hr IVPB Q1H [facility] Rx#: [id number] Norepinephrin 4 mg-0.9% 395.669 Ns Pmx 4 mg In 250 ml @ Titrate IV .Q0M [facility] Rx#: [id number] Sodium Phosphate 10 mmol 250 In Sodium Chloride 0.9% 250 ml @ 125 mls/hr IVPB ONCE ONE Rx#:[id number] Oral 537 Output: Urine 2445 2955 825 Stool 0 0 Other: Voiding Method Indwelling Catheter Indwelling Catheter Indwelling Catheter # Voids 3 3 - Exam ENERAL EXAM: Alert, resting, in no distress at this point HEAD: Normocephalic. EYES: Normal reaction of pupils, equal size. NOSE: Clear with pink turbinates. THROAT: No erythema or exudates. NECK: No masses, mild JVD. CHEST: No chest wall deformity. LUNGS: Fine crackles at the bases, no rhonchi, no wheezes CVS: S1 and S2 normal with an audible murmur, regular rhythm. ABDOMEN: No hepatosplenomegaly, normal bowel sounds, no guarding or rigidity. SPINE: No scoliosis or deformity SKIN: No rashes CENTRAL NERVOUS SYSTEM: No focal deficits, tone is normal in all 4 extremities. Extremities: There is trace peripheral edema. No clubbing, no cyanosis. Peripheral pulses are intact. - Labs CBC & Chem 7: 07/06/16 04:07 07/06/16 04:07 Labs: Abnormal Lab Results - Last 24 Hours (Table) 07/05/16 07/06/16 07/06/16 Range/Units 14:46 04:07 04:07 RBC 3.76 L (4.30-5.90) m/uL Hgb 11.5 L (13.0-17.5) gm/dL Hct 34.4 L (39.0-53.0) % RDW 15.9 H (11.5-15.5) % Neutrophils # 7.9 H (1.3-7.7) k/uL Lymphocytes # 0.8 L (1.0-4.8) k/uL PT (9.0-12.0) sec INR (<1.1) Sodium 135 L (137-145) mmol/L Carbon Dioxide 21 L (22-30) mmol/L BUN 22 H (9-20) mg/dL Creatinine 1.52 H (0.66-1.25) mg/dL Glucose 112 H (74-99) mg/dL Phosphorus 2.4 L (2.5-4.5) mg/dL Troponin I 0.209 H* (0.000-0.034) ng/mL 07/06/16 Range/Units 04:07 RBC (4.30-5.90) m/uL Hgb (13.0-17.5) gm/dL Hct (39.0-53.0) % RDW (11.5-15.5) % Neutrophils # (1.3-7.7) k/uL Lymphocytes # (1.0-4.8) k/uL PT 54.8 H (9.0-12.0) sec INR 5.5 H* (<1.1) Sodium (137-145) mmol/L Carbon Dioxide (22-30) mmol/L BUN (9-20) mg/dL Creatinine (0.66-1.25) mg/dL Glucose (74-99) mg/dL Phosphorus (2.5-4.5) mg/dL Troponin I (0.000-0.034) ng/mL Microbiology - Last 24 Hours (Table) 07/05/16 06:20 Blood Culture - Preliminary Blood No Growth after 24 hours 07/02/16 22:30 Stool Culture - Preliminary Stool Assessment and Plan Plan: Impression: 1 acute hypoxic respiratory failure secondary to acute pulmonary edema secondary to systolic cardiomyopathy and LV dysfunction. 2 moderate to severe aortic stenosis 3 acute C. difficile colitis and sepsis 4 acute shock, which is a combination of septic and cardiogenic in nature. 5 possible acute aspiration pneumonia, patient failed the swallow evaluation. We'll follow recommendations as per speech therapy. 6 multiple comorbidities including hypertension, coronary artery disease and previous CABG, hyperlipidemia, GERD, history of benign prostatic hypertrophy a previous TURP. And history of chronic atrial fibrillation maintained on Coumadin. History of pulmonary hypertension. Recommendation: Continue present supportive care measures, continue norepinephrine and Dobutrex, continue Lasix drip, monitor fluid status and electrolyte status closely while in the ICU. There is definite improvement, however the patient remains critically ill, and he will be kept in the intensive care unit. Critical care time is 33 minutes Time with Patient: Greater than 30
[2016-07-06] MEDS: CHERRY FLAVOR 60 ML BOTTLE PO PRN (10:56)
[2016-07-06] MEDS: ASPIRIN 325 MG TAB PO SCH (12:25)
--- NOTE | 2016-07-06 13:51 | PN ---
Mr. Xiao's diarrhea is a bit better now. He is still on dobutamine and IV Lasix and norepinephrine. He is greater than 3 L and negative balance from yesterday. Breath sounds are reduced bilaterally. He may have aspirated. He has crackles in the bases. Heart sounds, systolic murmur is audible. Abdomen is soft. IMPRESSION: 1. Congestive heart failure. 2. Valvular heart disease. 3. Likely sepsis related to intestinal problem. Suggest: Continue inotropes and IV Lasix drip and wean off epinephrine. Continue antibiotics.
[2016-07-06] MEDS ORDERED: Potassium Replacement Protocol 1 EACH MISC MISCELLANE PRN (15:54)
[2016-07-06] MEDS ORDERED: POTASSIUM CHLORIDE ER 20 MEQ TAB.ER PO SCH (16:00)
[2016-07-06] MEDS: DOBUTamine DRIP 500 MG in DEXTROSE/WATER 1 250ML.BAG IV SCH (21:29)
[2016-07-06] MEDS: MELATONIN 3 MG TABLET PO SCH (21:29)
[2016-07-06] MEDS: ALPRAZolam 0.25 MG TAB PO PRN (23:57)
[2016-07-07] MEDS: NOREPINEPHRIN 4 MG-0.9% NS PMX 4 MG/250 ML ML IV SCH ×3 (05:11→20:09)
[2016-07-07 05:29] LABS: Anisocytosis Slight; Basophils % (A) 0 %; CH 30.1; CHCM 32.3; Eosinophils # (A) 0.1 k/uL (0-0.7); Eosinophils % (A) 1 %; HCT 34.4 % (39.0-53.0); HDW 3.32; HGB 11.3 gm/dL (13.0-17.5); Hypochromasia Slight; Luc # (Auto) 0.07; Luc % (Auto) 1; Lymphocytes # (A) 0.7 k/uL (1.0-4.8); Lymphocytes % (A) 10 %; MCH 30.8 pg (25.0-35.0); MCHC 32.8 g/dL (31.0-37.0); MCV 93.8 fL (80.0-100.0); Mean Platelet Volume 8.4; Monocytes # (A) 0.3 k/uL (0-1.0); Monocytes % (A) 5 %; Neutrophils # (A) 5.6 k/uL (1.3-7.7); Neutrophils % (A) 83 %; RBC 3.67 m/uL (4.30-5.90); WBC 6.8 k/uL (3.8-10.6); WBC (Perox) 7.43
[2016-07-07 05:33] LABS: Prothrombin Time 49.7 sec (9.0-12.0)
[2016-07-07 05:46] LABS: Anion Gap 8 mmol/L; Blood Urea Nitrogen 24 mg/dL (9-20); Calcium 8.3 mg/dL (8.4-10.2); Carbon Dioxide 25 mmol/L (22-30); Chloride 101 mmol/L (98-107); Glucose 102 mg/dL (74-99); Magnesium 2.1 mg/dL (1.6-2.3); Non-African American GFR(MDRD) 53 (>60 ml/min/1.73 sqM); Phosphorous 3.3 mg/dL (2.5-4.5); Potassium 3.7 mmol/L (3.5-5.1); Sodium 134 mmol/L (137-145)
[2016-07-07] MEDS: LEVALBUTEROL NEB 1.25 MG/3 ML AMP INHALATION SCH ×3 (07:30→19:36)
[2016-07-07] MEDS: AMIODARONE 200 MG TAB PO SCH (08:03)
[2016-07-07] MEDS: PANTOPRAZOLE 40 MG TABLET PO SCH (08:03)
[2016-07-07] MEDS: ASPIRIN 325 MG TAB PO SCH (08:03)
[2016-07-07] MEDS: ALLOPURINOL 100 MG TAB PO SCH ×2 (08:03→21:40)
[2016-07-07] MEDS: metroNIDAZOLE 500 MG TAB PO SCH ×3 (08:03→23:03)
--- NOTE | 2016-07-07 08:15 | XR ---
EXAMINATION TYPE: XR chest 1V portable DATE OF EXAM: 07/07/2016 COMPARISON: Prior chest x-ray June HISTORY: Congestive heart failure TECHNIQUE: Single frontal view of the chest is obtained. FINDINGS: Mixed interstitial, airspace disease is again noted, heart is enlarged. No evident pneumot horax or sizable effusion IMPRESSION: Findings compatible with patient's history, follow-up.
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
[2016-07-07] MEDS: VANCOMYCIN ORAL SOLUTION 250 MG/5 ML BOTTLE PO SCH ×4 (09:40→23:03)
[2016-07-07] MEDS: SODIUM CHLORIDE 0.9% 1,000 ML IV SCH (10:29)
[2016-07-07] MEDS: CHOLESTYRAMINE (WITH SUGAR) 4 GM PACKET PO SCH ×2 (10:29→20:37)
[2016-07-07] MEDS: FUROSEMIDE 250 MG in SODIUM CHLORIDE 0.9% 225 ML IVP SCH (10:46)
--- NOTE | 2016-07-07 12:01 | PN ---
Mr. Xiao remains on pressors, dobutamine and IV Lasix. He is on BiPAP mask. Breath sounds are reduced bilaterally. He has a systolic murmur audible. Heart sounds are ( ). Breath sounds are reduced directly. Abdomen is soft, nontender. PLAN: Continue IV diuresis and dobutamine infusion today. He has significant heart failure and his intravenous medication will be continued for now. His electrolytes are reviewed. ( ) has been normal. His creatinine is 1.3, which is improved since yesterday.
--- NOTE | 2016-07-07 13:22 | P.PN ---
Subjective Principal diagnosis: Acute respiratory failure secondary to congestive heart failure, pulmonary edema. And acute C. difficile colitis. This is a very pleasant 85-year-old gentleman with a known history of coronary artery disease with previous coronary artery bypass grafting, congestive heart failure, atrial fibrillation anticoagulated with warfarin, amiodarone for rate control, DVT, gastroesophageal reflux disease, hypertension, hyperlipidemia, prostate per trephine status post TURP in April 2016. He had been following with his physician Dr. Mirza in [place] regarding ongoing issues with diarrhea for several days. He was subsequently at [facility] and was a direct admit to here on 07/01/2016. He was found to be C. diff positive. GI services were consulted and was initiated on Questran, Flagyl and vancomycin and the plan is for an outpatient colonoscopy in 4-6 weeks. While here he has developed significant worsening shortness of breath and evidence of worsening congestive heart failure. Last night he received 40 mg of IV Lasix and was placed on BiPAP. He is still in respiratory distress this morning and we are consulted for the same. He is seen in consultation on the regular medical floor. He is awake and alert. He is quite short of breath with minimal conversation. He is restless with the BiPAP. His chest x-ray shows worsening congestive heart failure and pulmonary edema. An echocardiogram had revealed severe global left ventricular hypokinesia. There is also noted moderate aortic stenosis and moderate pulmonary hypertension. Yesterday he is maintaining O2 saturations in the 90s on 2 L/m per nasal cannula. He developed suspected flash pulmonary edema approximately 1:00 this morning was placed on BiPAP and 80% FiO2 to maintain O2 saturations in the 90s. Patient was reevaluated today on 07/05/2016, remains on Lasix drip, he is also on norepinephrine drip at 7.5 mcg/min, Dobutrex at 2.5 mcg/kg/m, Lasix 10 mg per hour drip. Chest x-ray is showing improvement. Urine output is excellent, patient diuresed over 3 L overnight, and he is negative balance of 2.5 L so far. Chest x-ray continues to show some pulmonary edema, but improved compared to yesterday. Even hemodynamics-lopes patient seems to be doing better blood pressure seems to be marginal with relatively low dose of norepinephrine and Dobutrex. Labs were reviewed he had a relatively normal CBC no evidence of leukocytosis. INR is 3.5. Electrolytes were reviewed and his bicarb is 19, BUN is 26 and creatinine is improving down to 1.63 from 1.83 yesterday. Patient was placed on high flow nasal cannula, 15 L, O2 saturations are in the low 90s. He definitely seems to be more comfortable, and he has been off BiPAP all this morning. Patient was reevaluated today on 07/06/2016, remains on Lasix drip at 10 mg per hour, norepinephrine drip at my 8 mcg/m, Dobutrex at 5 mcg/kg/m. Seems to be clinically better, however the chest x-ray is showing slight worsening of his interstitial edema. Patient is in negative balance, however I was expecting more negative balance today than I have noted on the chart. Patient failed his swallow evaluation, and it was felt that he may have some component of aspiration in addition to his interstitial edema. At any rate since the patient seems to be clinically better, I will continue with the same treatment plan including Lasix Dobutrex and norepinephrine. Patient tells me that he is feeling better compared to when he fell 2 days ago. Labs were reviewed WBC count is 9 hemoglobin is 11.5 *Normal BUN is down to 22 creatinine is down to 1.52. Reevaluated today on 07/07/2016, patient remains on Lasix drip, norepinephrine, and Dobutrex. Doses are basically about the same. Patient feels much better clinically, however chest x-ray continues to show interstitial edema bilaterally. Patient is negative about 1 L fluid balance over the last 24 hours. Labs showed WBC count of 6.8 hemoglobin is 11.3, INR is 5.0, electrolytes and renal profile are significantly improved. BUN is 24 creatinine is 1.30. Chest x-ray continues to show pulmonary edema. Objective - Vital Signs Vital signs: Vital Signs Temp 98.1 F 07/07/16 07:30 Pulse 107 H 07/07/16 11:45 Resp 34 H 07/07/16 11:00 BP 86/55 07/07/16 11:00 Pulse Ox 91 L 07/07/16 11:00 Intake & Output 07/06/16 07/07/16 07/07/16 18:59 06:59 18:59 Intake Total 996.831 660.664 476.292 Output Total 3150 2725 575 Balance -2153.169 -2064.336 -98.708 Weight 74.9 kg Intake: IV 220 260 100 Sodium Chloride 0.9% 1, 220 260 100 000 ml @ 20 mls/hr IV . Q24H [facility] Rx#:[id number] Intake, IV Titration 776.831 400.664 376.292 Amount DOBUTamine DRIP 500 mg In 150.664 Dextrose/Water 1 250ml. bag @ 2.5 MCG/KG/MIN 5.92 mls/hr IV .Q24H [facility] Rx#: [id number] Furosemide 250 mg In 222.5 240.167 Sodium Chloride 0.9% 225 ml @ 10 MG/HR 10 mls/hr IVP .Q24H [facility] Rx#: [id number] Magnesium Sulfate-D5w Pmx 200 1 gm In Dextrose/Water 1 100ml.bag @ 100 mls/hr IVPB Q1H [facility] Rx#: [id number] Norepinephrin 4 mg-0.9% 104.331 250.00 136.125 Ns Pmx 4 mg In 250 ml @ Titrate IV .Q0M [facility] Rx#: [id number] Sodium Phosphate 10 mmol 250 In Sodium Chloride 0.9% 250 ml @ 125 mls/hr IVPB ONCE ONE Rx#:[id number] Output: Urine 3150 2725 575 Stool 0 Other: Voiding Method Indwelling Catheter Indwelling Catheter Indwelling Catheter # Voids 3 - Exam ENERAL EXAM: Alert, resting, in no distress at this point HEAD: Normocephalic. EYES: Normal reaction of pupils, equal size. NOSE: Clear with pink turbinates. THROAT: No erythema or exudates. NECK: No masses, mild JVD. CHEST: No chest wall deformity. LUNGS: Fine crackles at the bases, no rhonchi, no wheezes CVS: S1 and S2 normal with an audible murmur, regular rhythm. ABDOMEN: No hepatosplenomegaly, normal bowel sounds, no guarding or rigidity. SPINE: No scoliosis or deformity SKIN: No rashes CENTRAL NERVOUS SYSTEM: No focal deficits, tone is normal in all 4 extremities. Extremities: There is trace peripheral edema. No clubbing, no cyanosis. Peripheral pulses are intact. - Labs CBC & Chem 7: 07/07/16 04:46 07/07/16 04:46 Labs: Abnormal Lab Results - Last 24 Hours (Table) 07/07/16 07/07/16 07/07/16 Range/Units 04:46 04:46 04:46 RBC 3.67 L (4.30-5.90) m/uL Hgb 11.3 L (13.0-17.5) gm/dL Hct 34.4 L (39.0-53.0) % RDW 16.0 H (11.5-15.5) % Lymphocytes # 0.7 L (1.0-4.8) k/uL PT 49.7 H (9.0-12.0) sec INR 5.0 H* (<1.1) Sodium 134 L (137-145) mmol/L BUN 24 H (9-20) mg/dL Creatinine 1.30 H (0.66-1.25) mg/dL Glucose 102 H (74-99) mg/dL Calcium 8.3 L (8.4-10.2) mg/dL Microbiology - Last 24 Hours (Table) 07/05/16 06:20 Blood Culture - Preliminary Blood No Growth after 48 hours 07/02/16 22:30 Stool Culture - Final Stool Assessment and Plan Plan: Impression: 1 acute hypoxic respiratory failure secondary to acute pulmonary edema secondary to systolic cardiomyopathy and LV dysfunction. 2 moderate to severe aortic stenosis 3 acute C. difficile colitis and sepsis 4 acute shock, which is a combination of septic and cardiogenic in nature. 5 possible acute aspiration pneumonia, patient failed the swallow evaluation. We'll follow recommendations as per speech therapy. 6 multiple comorbidities including hypertension, coronary artery disease and previous CABG, hyperlipidemia, GERD, history of benign prostatic hypertrophy a previous TURP. And history of chronic atrial fibrillation maintained on Coumadin. History of pulmonary hypertension. Recommendation: Continue present supportive care measures, continue norepinephrine and Dobutrex, continue Lasix drip, monitor fluid status and electrolyte status closely while in the ICU. There is definite improvement, however the patient remains critically ill, and he will be kept in the intensive care unit. Critical care time is 32 minutes Time with Patient: Greater than 30
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
[2016-07-07] MEDS: DOBUTamine DRIP 500 MG in DEXTROSE/WATER 1 250ML.BAG IV SCH (18:39)
[2016-07-07] MEDS ORDERED: Potassium Replacement Protocol 1 EACH MISC MISCELLANE PRN (19:28)
[2016-07-07] MEDS ORDERED: POTASSIUM CHLORIDE ORAL LIQUID 40 MEQ/30 ML CUP NG-TUBE SCH (20:00)
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
[2016-07-07] MEDS: ALPRAZolam 0.25 MG TAB PO PRN (21:40)
[2016-07-07] MEDS: MELATONIN 3 MG TABLET PO SCH (21:40)
[2016-07-07] MEDS: CHERRY FLAVOR 60 ML BOTTLE PO PRN (23:03)
[2016-07-08] MEDS: HYDROcodone/APAP 5-325MG 1 EACH TAB PO PRN (00:07)
[2016-07-08] MEDS: NOREPINEPHRIN 4 MG-0.9% NS PMX 4 MG/250 ML ML IV SCH ×3 (03:35→22:04)
[2016-07-08 04:46] LABS: INR 3.9 (<1.1); Prothrombin Time 37.8 sec (9.0-12.0)
[2016-07-08 05:00] LABS: Magnesium 2.2 mg/dL (1.6-2.3); Phosphorous 3.1 mg/dL (2.5-4.5)
[2016-07-08 05:21] LABS: CHCM 31.3; HCT 36.7 % (39.0-53.0); HDW 3.24; HGB 11.5 gm/dL (13.0-17.5); Hypochromasia Moderate; MCH 30.3 pg (25.0-35.0); MCHC 31.4 g/dL (31.0-37.0); MCV 96.4 fL (80.0-100.0); Mean Platelet Volume 7.9; RBC 3.81 m/uL (4.30-5.90); RDW 15.9 % (11.5-15.5); WBC 5.4 k/uL (3.8-10.6)
[2016-07-08 05:24] LABS: Anion Gap 8 mmol/L; Blood Urea Nitrogen 29 mg/dL (9-20); Calcium 8.3 mg/dL (8.4-10.2); Carbon Dioxide 23 mmol/L (22-30); Chloride 102 mmol/L (98-107); Glucose 103 mg/dL (74-99); Non-African American GFR(MDRD) >60 (>60 ml/min/1.73 sqM); Potassium 3.9 mmol/L (3.5-5.1); Sodium 133 mmol/L (137-145)
[2016-07-08] MEDS ORDERED: Potassium Replacement Protocol 1 EACH MISC MISCELLANE PRN (05:50)
[2016-07-08] MEDS: VANCOMYCIN ORAL SOLUTION 250 MG/5 ML BOTTLE PO SCH ×4 (06:26→23:03)
[2016-07-08] MEDS: CHERRY FLAVOR 60 ML BOTTLE PO PRN ×2 (06:27→17:00)
[2016-07-08] MEDS ORDERED: POTASSIUM CHLORIDE ORAL LIQUID 40 MEQ/30 ML CUP NG-TUBE SCH (06:30)
[2016-07-08] MEDS: LEVALBUTEROL NEB 1.25 MG/3 ML AMP INHALATION SCH ×3 (07:27→19:12)
--- NOTE | 2016-07-08 07:51 | XR ---
EXAMINATION TYPE: XR chest 1V portable DATE OF EXAM: 07/08/2016 COMPARISON: Prior chest x-ray 07/07/2016 HISTORY: Congestive heart failure TECHNIQUE: Single frontal view of the chest is obtained. FINDINGS: Findings are similar to prior exam. IMPRESSION: Correlate for congestive heart failure, interstitial lung disease.
[2016-07-08] MEDS: metroNIDAZOLE 500 MG TAB PO SCH ×3 (08:03→23:02)
[2016-07-08] MEDS: PANTOPRAZOLE 40 MG TABLET PO SCH (08:52)
[2016-07-08] MEDS: ALLOPURINOL 100 MG TAB PO SCH ×2 (08:52→20:09)
[2016-07-08] MEDS: ASPIRIN 325 MG TAB PO SCH (08:52)
[2016-07-08] MEDS: AMIODARONE 200 MG TAB PO SCH (08:52)
[2016-07-08] MEDS: FUROSEMIDE 250 MG in SODIUM CHLORIDE 0.9% 225 ML IVP SCH (08:55)
[2016-07-08] MEDS: SODIUM CHLORIDE 0.9% 1,000 ML IV SCH (10:10)
--- NOTE | 2016-07-08 10:51 | PN ---
DATE OF SERVICE: 07/08/2016 Mr. Emanuel Xiao is doing better than yesterday. He is still on has inotropic agents, pressors and IV Lasix drip but his air entry has improved. He has bilateral crackles with better air entry. No rhonchi. Heart sounds are soft. He is sitting comfortably in bed. Vitals, blood pressure is 82/62 mmHg, respirations are about 18 to 20, he is afebrile, pulse rate is in the 90s. IMPRESSION: 1. Valvular heart disease. 2. Congestive heart failure. 3. Pneumonitis. Suggest to taper off norepinephrine and then we will begin tapering off the dobutamine and IV Lasix drip. Maintain negative balance.
[2016-07-08] MEDS: methylPREDNISolone SOD SUCCI 125 MG/2 ML VIAL IV SCH ×3 (11:12→23:02)
--- NOTE | 2016-07-08 12:40 | P.PN ---
Subjective Principal diagnosis: Acute respiratory failure secondary to congestive heart failure, pulmonary edema. And acute C. difficile colitis. This is a very pleasant 85-year-old gentleman with a known history of coronary artery disease with previous coronary artery bypass grafting, congestive heart failure, atrial fibrillation anticoagulated with warfarin, amiodarone for rate control, DVT, gastroesophageal reflux disease, hypertension, hyperlipidemia, prostate per trephine status post TURP in April 2016. He had been following with his physician Dr. Mirza in [place] regarding ongoing issues with diarrhea for several days. He was subsequently at [facility] and was a direct admit to here on 07/01/2016. He was found to be C. diff positive. GI services were consulted and was initiated on Questran, Flagyl and vancomycin and the plan is for an outpatient colonoscopy in 4-6 weeks. While here he has developed significant worsening shortness of breath and evidence of worsening congestive heart failure. Last night he received 40 mg of IV Lasix and was placed on BiPAP. He is still in respiratory distress this morning and we are consulted for the same. He is seen in consultation on the regular medical floor. He is awake and alert. He is quite short of breath with minimal conversation. He is restless with the BiPAP. His chest x-ray shows worsening congestive heart failure and pulmonary edema. An echocardiogram had revealed severe global left ventricular hypokinesia. There is also noted moderate aortic stenosis and moderate pulmonary hypertension. Yesterday he is maintaining O2 saturations in the 90s on 2 L/m per nasal cannula. He developed suspected flash pulmonary edema approximately 1:00 this morning was placed on BiPAP and 80% FiO2 to maintain O2 saturations in the 90s. Patient was reevaluated today on 07/05/2016, remains on Lasix drip, he is also on norepinephrine drip at 7.5 mcg/min, Dobutrex at 2.5 mcg/kg/m, Lasix 10 mg per hour drip. Chest x-ray is showing improvement. Urine output is excellent, patient diuresed over 3 L overnight, and he is negative balance of 2.5 L so far. Chest x-ray continues to show some pulmonary edema, but improved compared to yesterday. Even hemodynamics-lopes patient seems to be doing better blood pressure seems to be marginal with relatively low dose of norepinephrine and Dobutrex. Labs were reviewed he had a relatively normal CBC no evidence of leukocytosis. INR is 3.5. Electrolytes were reviewed and his bicarb is 19, BUN is 26 and creatinine is improving down to 1.63 from 1.83 yesterday. Patient was placed on high flow nasal cannula, 15 L, O2 saturations are in the low 90s. He definitely seems to be more comfortable, and he has been off BiPAP all this morning. Patient was reevaluated today on 07/06/2016, remains on Lasix drip at 10 mg per hour, norepinephrine drip at my 8 mcg/m, Dobutrex at 5 mcg/kg/m. Seems to be clinically better, however the chest x-ray is showing slight worsening of his interstitial edema. Patient is in negative balance, however I was expecting more negative balance today than I have noted on the chart. Patient failed his swallow evaluation, and it was felt that he may have some component of aspiration in addition to his interstitial edema. At any rate since the patient seems to be clinically better, I will continue with the same treatment plan including Lasix Dobutrex and norepinephrine. Patient tells me that he is feeling better compared to when he fell 2 days ago. Labs were reviewed WBC count is 9 hemoglobin is 11.5 *Normal BUN is down to 22 creatinine is down to 1.52. Reevaluated today on 07/07/2016, patient remains on Lasix drip, norepinephrine, and Dobutrex. Doses are basically about the same. Patient feels much better clinically, however chest x-ray continues to show interstitial edema bilaterally. Patient is negative about 1 L fluid balance over the last 24 hours. Labs showed WBC count of 6.8 hemoglobin is 11.3, INR is 5.0, electrolytes and renal profile are significantly improved. BUN is 24 creatinine is 1.30. Chest x-ray continues to show pulmonary edema. On 07/08/2016, patient remains on a Lasix drip, norepinephrine at 9 mcg/m, Dobutrex at 5 micrograms per kilo per minute. Patient is negative fluid balance of almost 8 L in the last 2-3 days. However his chest x-ray is not improving as much as expected considering the negative fluid balance. Hence I have recommended at least few doses of Solu-Medrol, on a trial basis for his abnormal chest x-ray. Clinically the patient is feeling much better, breathing a lot easier, even on physical examination does not sound as bad as expected considering the findings on the chest x-ray. Labs were reviewed CBC is normal INR is down to 3.9 electrolytes are normal renal profile is improving with BUN of 29 creatinine of 1.15. Objective - Vital Signs Vital signs: Vital Signs Temp 97.5 F L 07/08/16 12:00 Pulse 92 07/08/16 12:00 Resp 20 07/08/16 12:00 BP 86/54 07/08/16 12:00 Pulse Ox 95 07/08/16 12:00 Intake & Output 07/07/16 07/08/16 07/08/16 18:59 06:59 18:59 Intake Total 886.099 679.563 534.625 Output Total 1150 2120 865 Balance -263.901 -1440.437 -330.375 Weight 74.2 kg Intake: IV 220 240 70 Sodium Chloride 0.9% 1, 220 240 70 000 ml @ 20 mls/hr IV . Q24H [facility]IAN Rx#:[id number] Intake, IV Titration 666.099 439.563 464.625 Amount DOBUTamine DRIP 500 mg In 125.307 Dextrose/Water 1 250ml. bag @ 2.5 MCG/KG/MIN 5.92 mls/hr IV .Q24H [facility] Rx#: [id number] Furosemide 250 mg In 240.167 221.5 Sodium Chloride 0.9% 225 ml @ 10 MG/HR 10 mls/hr IVP .Q24H [facility] Rx#: [id number] Norepinephrin 4 mg-0.9% 300.625 439.563 243.125 Ns Pmx 4 mg In 250 ml @ Titrate IV .Q0M DAMIAN Rx#: [id number] Output: Urine 1150 2120 865 Stool 0 0 Other: Voiding Method Indwelling Catheter Indwelling Catheter Indwelling Catheter # Voids 3 - Exam ENERAL EXAM: Alert, resting, in no distress at this point HEAD: Normocephalic. EYES: Normal reaction of pupils, equal size. NOSE: Clear with pink turbinates. THROAT: No erythema or exudates. NECK: No masses, mild JVD. CHEST: No chest wall deformity. LUNGS: Fine crackles at the bases, no rhonchi, no wheezes CVS: S1 and S2 normal with an audible murmur, regular rhythm. ABDOMEN: No hepatosplenomegaly, normal bowel sounds, no guarding or rigidity. SPINE: No scoliosis or deformity SKIN: No rashes CENTRAL NERVOUS SYSTEM: No focal deficits, tone is normal in all 4 extremities. Extremities: There is trace peripheral edema. No clubbing, no cyanosis. Peripheral pulses are intact. - Labs CBC & Chem 7: 07/08/16 04:25 07/08/16 04:25 Labs: Abnormal Lab Results - Last 24 Hours (Table) 07/08/16 07/08/16 07/08/16 Range/Units 04:25 04:25 04:25 RBC 3.81 L (4.30-5.90) m/uL Hgb 11.5 L (13.0-17.5) gm/dL Hct 36.7 L (39.0-53.0) % RDW 15.9 H (11.5-15.5) % PT 37.8 H (9.0-12.0) sec Sodium 133 L (137-145) mmol/L BUN 29 H (9-20) mg/dL Glucose 103 H (74-99) mg/dL Calcium 8.3 L (8.4-10.2) mg/dL Microbiology - Last 24 Hours (Table) 07/05/16 06:20 Blood Culture - Preliminary Blood No Growth after 72 hours Assessment and Plan Plan: Impression: 1 acute hypoxic respiratory failure secondary to acute pulmonary edema secondary to systolic cardiomyopathy and LV dysfunction. 2 moderate to severe aortic stenosis 3 acute C. difficile colitis and sepsis 4 acute shock, which is possibly combination of septic and cardiogenic in nature. 5 possible acute aspiration pneumonia, patient failed the swallow evaluation. We'll follow recommendations as per speech therapy. 6 multiple comorbidities including hypertension, coronary artery disease and previous CABG, hyperlipidemia, GERD, history of benign prostatic hypertrophy a previous TURP. And history of chronic atrial fibrillation maintained on Coumadin. History of pulmonary hypertension. Recommendation: Continue present supportive care measures, continue norepinephrine and Dobutrex, continue Lasix drip, monitor fluid status and electrolyte status closely while in the ICU. There is definite improvement, however the chest x-ray is not showing significant improvement as noted clinically. Solu-Medrol will be given, we'll keep the patient in the ICU, and we'll follow closely. Critical care time is 32 minutes. Time with Patient: Greater than 30
[2016-07-08 16:20] LABS: Glucose,Whole Blood 211 mg/dL (75-99)
[2016-07-08] MEDS ORDERED: INSULIN LISPRO (humaLOG) 300 UNIT/3 ML VIAL SQ SCH (17:30)
[2016-07-08 20:02] LABS: Glucose,Whole Blood 252 mg/dL (75-99)
[2016-07-08] MEDS: MELATONIN 3 MG TABLET PO SCH (20:09)
[2016-07-08] MEDS ORDERED: INSULIN REGULAR BOLUS (FROM DRIP BAG) IV PRN (20:10)
[2016-07-08] MEDS: INSULIN REGULAR 100 UNIT in SODIUM CHLORIDE 0.9% 100 ML IV SCH (21:16)
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
[2016-07-08 22:03] LABS: Glucose,Whole Blood 229 mg/dL (75-99)
[2016-07-08 23:30] LABS: Glucose,Whole Blood 170 mg/dL (75-99)
[2016-07-09 00:06] LABS: Glucose,Whole Blood 127 mg/dL (75-99)
[2016-07-09 00:58] LABS: Glucose,Whole Blood 94 mg/dL (75-99)
[2016-07-09 01:57] LABS: Glucose,Whole Blood 115 mg/dL (75-99)
[2016-07-09 02:58] LABS: Glucose,Whole Blood 148 mg/dL (75-99)
[2016-07-09] MEDS: DOBUTamine DRIP 500 MG in DEXTROSE/WATER 1 250ML.BAG IV SCH (04:01)
[2016-07-09 04:05] LABS: Glucose,Whole Blood 132 mg/dL (75-99)
[2016-07-09 04:34] LABS: CH 30.2; HCT 37.2 % (39.0-53.0); HDW 3.24; HGB 11.6 gm/dL (13.0-17.5); Hypochromasia Slight; MCH 29.6 pg (25.0-35.0); MCHC 31.2 g/dL (31.0-37.0); MCV 94.7 fL (80.0-100.0); Mean Platelet Volume 8.1; RBC 3.93 m/uL (4.30-5.90); RDW 15.9 % (11.5-15.5); WBC 4.3 k/uL (3.8-10.6)
[2016-07-09 04:42] LABS: INR 2.5 (<1.1); Prothrombin Time 24.2 sec (9.0-12.0)
[2016-07-09 04:46] LABS: Anion Gap 8 mmol/L; Blood Urea Nitrogen 38 mg/dL (9-20); Calcium 8.5 mg/dL (8.4-10.2); Carbon Dioxide 25 mmol/L (22-30); Chloride 100 mmol/L (98-107); Glucose 133 mg/dL (74-99); Magnesium 2.2 mg/dL (1.6-2.3); Non-African American GFR(MDRD) >60 (>60 ml/min/1.73 sqM); Phosphorous 3.7 mg/dL (2.5-4.5); Potassium 3.9 mmol/L (3.5-5.1); Sodium 133 mmol/L (137-145)
[2016-07-09] MEDS: VANCOMYCIN ORAL SOLUTION 250 MG/5 ML BOTTLE PO SCH (05:18)
[2016-07-09 05:19] LABS: Glucose,Whole Blood 129 mg/dL (75-99)
[2016-07-09] MEDS: methylPREDNISolone SOD SUCCI 125 MG/2 ML VIAL IV SCH ×2 (05:19→11:39)
[2016-07-09] MEDS: FUROSEMIDE 250 MG in SODIUM CHLORIDE 0.9% 225 ML IVP SCH (05:58)
[2016-07-09] MEDS ORDERED: POTASSIUM CHLORIDE ER 20 MEQ TAB.ER PO SCH ×2 (06:00→15:00)
[2016-07-09 06:54] LABS: Glucose,Whole Blood 126 mg/dL (75-99)
[2016-07-09] MEDS: LEVALBUTEROL NEB 1.25 MG/3 ML AMP INHALATION SCH ×3 (07:16→19:59)
--- NOTE | 2016-07-09 07:40 | XR ---
EXAMINATION TYPE: XR chest 1V portable DATE OF EXAM: 07/09/2016 6:45 AM COMPARISON: 07/08/2016 INDICATION: CHF TECHNIQUE: Single frontal view of the chest is obtained. FINDINGS: The heart size is enlarged. The pulmonary vasculature is prominent. There is diffuse increased lung markings. Bibasilar infiltrates are present. There is slight improvem ent from prior study. IMPRESSION: 1. Slight improvement of previous congestive heart failure. Continued follow-up is recommended.
[2016-07-09 07:55] LABS: Glucose,Whole Blood 139 mg/dL (75-99)
[2016-07-09] MEDS: ASPIRIN 325 MG TAB PO SCH (08:02)
[2016-07-09] MEDS: PANTOPRAZOLE 40 MG TABLET PO SCH (08:02)
[2016-07-09] MEDS: SODIUM CHLORIDE 0.9% 1,000 ML IV SCH (08:03)
[2016-07-09] MEDS: AMIODARONE 200 MG TAB PO SCH (08:03)
[2016-07-09] MEDS: metroNIDAZOLE 500 MG TAB PO SCH (08:03)
[2016-07-09] MEDS: ALLOPURINOL 100 MG TAB PO SCH ×2 (08:03→22:02)
[2016-07-09 08:46] LABS: Glucose,Whole Blood 165 mg/dL (75-99)
--- NOTE | 2016-07-09 09:55 | P.PN ---
Subjective Principal diagnosis: Acute respiratory failure secondary to congestive heart failure, pulmonary edema. And acute C. difficile colitis. This is a very pleasant 85-year-old gentleman with a known history of coronary artery disease with previous coronary artery bypass grafting, congestive heart failure, atrial fibrillation anticoagulated with warfarin, amiodarone for rate control, DVT, gastroesophageal reflux disease, hypertension, hyperlipidemia, prostate per trephine status post TURP in April 2016. He had been following with his physician Dr. Mirza in [place] regarding ongoing issues with diarrhea for several days. He was subsequently at [facility] and was a direct admit to here on 07/01/2016. He was found to be C. diff positive. GI services were consulted and was initiated on Questran, Flagyl and vancomycin and the plan is for an outpatient colonoscopy in 4-6 weeks. While here he has developed significant worsening shortness of breath and evidence of worsening congestive heart failure. Last night he received 40 mg of IV Lasix and was placed on BiPAP. He is still in respiratory distress this morning and we are consulted for the same. He is seen in consultation on the regular medical floor. He is awake and alert. He is quite short of breath with minimal conversation. He is restless with the BiPAP. His chest x-ray shows worsening congestive heart failure and pulmonary edema. An echocardiogram had revealed severe global left ventricular hypokinesia. There is also noted moderate aortic stenosis and moderate pulmonary hypertension. Yesterday he is maintaining O2 saturations in the 90s on 2 L/m per nasal cannula. He developed suspected flash pulmonary edema approximately 1:00 this morning was placed on BiPAP and 80% FiO2 to maintain O2 saturations in the 90s. Patient was reevaluated today on 07/05/2016, remains on Lasix drip, he is also on norepinephrine drip at 7.5 mcg/min, Dobutrex at 2.5 mcg/kg/m, Lasix 10 mg per hour drip. Chest x-ray is showing improvement. Urine output is excellent, patient diuresed over 3 L overnight, and he is negative balance of 2.5 L so far. Chest x-ray continues to show some pulmonary edema, but improved compared to yesterday. Even hemodynamics-lopes patient seems to be doing better blood pressure seems to be marginal with relatively low dose of norepinephrine and Dobutrex. Labs were reviewed he had a relatively normal CBC no evidence of leukocytosis. INR is 3.5. Electrolytes were reviewed and his bicarb is 19, BUN is 26 and creatinine is improving down to 1.63 from 1.83 yesterday. Patient was placed on high flow nasal cannula, 15 L, O2 saturations are in the low 90s. He definitely seems to be more comfortable, and he has been off BiPAP all this morning. Patient was reevaluated today on 07/06/2016, remains on Lasix drip at 10 mg per hour, norepinephrine drip at my 8 mcg/m, Dobutrex at 5 mcg/kg/m. Seems to be clinically better, however the chest x-ray is showing slight worsening of his interstitial edema. Patient is in negative balance, however I was expecting more negative balance today than I have noted on the chart. Patient failed his swallow evaluation, and it was felt that he may have some component of aspiration in addition to his interstitial edema. At any rate since the patient seems to be clinically better, I will continue with the same treatment plan including Lasix Dobutrex and norepinephrine. Patient tells me that he is feeling better compared to when he fell 2 days ago. Labs were reviewed WBC count is 9 hemoglobin is 11.5 *Normal BUN is down to 22 creatinine is down to 1.52. Reevaluated today on 07/07/2016, patient remains on Lasix drip, norepinephrine, and Dobutrex. Doses are basically about the same. Patient feels much better clinically, however chest x-ray continues to show interstitial edema bilaterally. Patient is negative about 1 L fluid balance over the last 24 hours. Labs showed WBC count of 6.8 hemoglobin is 11.3, INR is 5.0, electrolytes and renal profile are significantly improved. BUN is 24 creatinine is 1.30. Chest x-ray continues to show pulmonary edema. On 07/08/2016, patient remains on a Lasix drip, norepinephrine at 9 mcg/m, Dobutrex at 5 micrograms per kilo per minute. Patient is negative fluid balance of almost 8 L in the last 2-3 days. However his chest x-ray is not improving as much as expected considering the negative fluid balance. Hence I have recommended at least few doses of Solu-Medrol, on a trial basis for his abnormal chest x-ray. Clinically the patient is feeling much better, breathing a lot easier, even on physical examination does not sound as bad as expected considering the findings on the chest x-ray. Labs were reviewed CBC is normal INR is down to 3.9 electrolytes are normal renal profile is improving with BUN of 29 creatinine of 1.15. The patient is seen again today 07/09/2016 in follow-up in the intensive care unit. He is currently awake and alert in no acute distress. He remains on dobutamine at 5 mcg/kg/m, levophed at 3 mcg/m and Lasix drip at 10 mg per hour. He has a 0.9 normal saline at 10 mL per hour and insulin drip is currently on hold. His chest x-ray does show slight improvement in the congestive heart failure. He remains in a negative balance. He is still requiring 8 L of high flow nasal cannula to maintain O2 saturations in the 90s. Renal function stable and a creatinine of 1.13. Objective - Vital Signs Vital signs: Vital Signs Temp 97.4 F L 07/09/16 08:00 Pulse 90 07/09/16 09:00 Resp 20 07/09/16 09:00 BP 109/61 07/09/16 09:00 Pulse Ox 95 07/09/16 09:00 Intake & Output 07/08/16 07/09/16 07/09/16 18:59 06:59 18:59 Intake Total 413.204 4008.436 76.25 Output Total 2665 2112 605 Balance -2060.375 -597.564 -528.75 Weight 79.5 kg Intake: IV 140 110 30 Sodium Chloride 0.9% 1, 140 110 30 000 ml @ 20 mls/hr IV . Q24H [facility] Rx#:[id number] Intake, IV Titration 464.625 804.436 46.25 Amount DOBUTamine DRIP 500 mg In 197.531 Dextrose/Water 1 250ml. bag @ 2.5 MCG/KG/MIN 5.92 mls/hr IV .Q24H [facility] Rx#: [id number] Furosemide 250 mg In 221.5 210.5 Sodium Chloride 0.9% 225 ml @ 10 MG/HR 10 mls/hr IVP .Q24H [facility] Rx#: [id number] Insulin Regular 100 unit 24.342 0 In Sodium Chloride 0.9% 100 ml @ Per Protocol IV .Q0M [facility] Rx#:[id number] Norepinephrin 4 mg-0.9% 243.125 372.063 46.25 Ns Pmx 4 mg In 250 ml @ Titrate IV .Q0M [facility] Rx#: [id number] Oral 600 Output: Urine 2665 2110 605 Stool 0 2 Other: Voiding Method Indwelling Catheter Indwelling Catheter Indwelling Catheter # Bowel Movements 1 - Exam GENERAL EXAM: Alert, resting, in no distress at this point HEAD: Normocephalic. EYES: Normal reaction of pupils, equal size. NOSE: Clear with pink turbinates. THROAT: No erythema or exudates. NECK: No masses, mild JVD. CHEST: No chest wall deformity. LUNGS: Fine crackles at the bases, no rhonchi, no wheezes CVS: S1 and S2 normal with an audible murmur, regular rhythm. ABDOMEN: No hepatosplenomegaly, normal bowel sounds, no guarding or rigidity. SPINE: No scoliosis or deformity SKIN: No rashes CENTRAL NERVOUS SYSTEM: No focal deficits, tone is normal in all 4 extremities. Extremities: There is trace peripheral edema. No clubbing, no cyanosis. Peripheral pulses are intact. - Labs CBC & Chem 7: 07/09/16 04:10 07/09/16 04:10 Labs: Abnormal Lab Results - Last 24 Hours (Table) 07/08/16 07/08/16 07/08/16 Range/Units 16:17 20:01 22:01 RBC (4.30-5.90) m/uL Hgb (13.0-17.5) gm/dL Hct (39.0-53.0) % RDW (11.5-15.5) % PT (9.0-12.0) sec Sodium (137-145) mmol/L BUN (9-20) mg/dL Glucose (74-99) mg/dL POC Glucose (mg/dL) 211 H 252 H 229 H (75-99) mg/dL 07/08/16 07/09/16 07/09/16 Range/Units 23:26 00:05 01:54 RBC (4.30-5.90) m/uL Hgb (13.0-17.5) gm/dL Hct (39.0-53.0) % RDW (11.5-15.5) % PT (9.0-12.0) sec Sodium (137-145) mmol/L BUN (9-20) mg/dL Glucose (74-99) mg/dL POC Glucose (mg/dL) 170 H 127 H 115 H (75-99) mg/dL 07/09/16 07/09/16 07/09/16 Range/Units 02:56 04:03 04:10 RBC (4.30-5.90) m/uL Hgb (13.0-17.5) gm/dL Hct (39.0-53.0) % RDW (11.5-15.5) % PT 24.2 H (9.0-12.0) sec Sodium (137-145) mmol/L BUN (9-20) mg/dL Glucose (74-99) mg/dL POC Glucose (mg/dL) 148 H 132 H (75-99) mg/dL 07/09/16 07/09/16 07/09/16 Range/Units 04:10 04:10 05:17 RBC 3.93 L (4.30-5.90) m/uL Hgb 11.6 L (13.0-17.5) gm/dL Hct 37.2 L (39.0-53.0) % RDW 15.9 H (11.5-15.5) % PT (9.0-12.0) sec Sodium 133 L (137-145) mmol/L BUN 38 H (9-20) mg/dL Glucose 133 H (74-99) mg/dL POC Glucose (mg/dL) 129 H (75-99) mg/dL 07/09/16 07/09/16 07/09/16 Range/Units 06:52 07:54 08:44 RBC (4.30-5.90) m/uL Hgb (13.0-17.5) gm/dL Hct (39.0-53.0) % RDW (11.5-15.5) % PT (9.0-12.0) sec Sodium (137-145) mmol/L BUN (9-20) mg/dL Glucose (74-99) mg/dL POC Glucose (mg/dL) 126 H 139 H 165 H (75-99) mg/dL Microbiology - Last 24 Hours (Table) 07/05/16 06:20 Blood Culture - Preliminary Blood No Growth after 96 hours Assessment and Plan Plan: Impression: #1 Acute exacerbation of systolic congestive heart failure requiring BiPAP support. Severe left ventricular global hypokinesia. #2 Acute hypoxic respiratory failure secondary to above. #3 Moderate to severe aortic stenosis. #4 Moderate pulmonary hypertension. #5 Atrial fibrillation, anticoagulated with warfarin. On maintenance amiodarone. Current INR 2.5. #6 Coronary artery disease with previous coronary artery bypass grafting. #7 Hypertension. #8 Hyperlipidemia. #9 Gastroesophageal reflux disease. #10 BPH, status post TURP in April 2016. #11 C. difficile toxicity. Currently on Questran, Flagyl and vancomycin. Plan: The patient was seen and evaluated by Dr. Ferrell. His chest x-ray and labs were reviewed. We'll continue to wean his FiO2 as tolerated. We'll continue with his current medications. He has been slow to progress but is improving daily. We'll continue to monitor him here in the intensive care unit. We'll continue to follow. Critical care time: 34 minutes. Time with Patient: Greater than 30
[2016-07-09 09:57] LABS: Glucose,Whole Blood 250 mg/dL (75-99)
[2016-07-09 11:09] LABS: Glucose,Whole Blood 257 mg/dL (75-99)
[2016-07-09 11:43] LABS: Hemoglobin A1C 5.9 % (4.2-6.1)
--- NOTE | 2016-07-09 13:01 | PN ---
An 85-year-old gentleman with chronic refractory class IV congestive heart failure secondary to cardiomyopathy and valvular heart disease. Is in the ICU primarily because of hypotension. The patient is on Lasix drip along with dobutamine and Levophed. Currently Levophed is being tapered. Shortness of breath is improving. I am going to taper the dobutamine as he has already been on dobutamine for 4 days and I will continue the Lasix drip and if he is feeling okay might cut back on the Lasix later this afternoon. On exam, his heart rate is 70 beats per minute, blood pressure is 78/50, respiratory rate is 20. Chest exam reveals diminished air entry at the bases. Heart exam reveals first and second heart sounds and a systolic murmur at the apex. Abdomen is soft. Exam of the extremities reveals 1+ edema. Peripheral pulses are felt. Labs show that the hemoglobin is 11.6. Potassium is 3.9. Creatinine is 1.1. ASSESSMENT: 1. Chronic systolic heart failure. 2. Valvular heart disease. 3. Hypotension. PLAN: Continue the patient on current medical therapy, taper and stop the dobutamine, gradually cut back on the Lasix drip.
[2016-07-09 13:19] LABS: Glucose,Whole Blood 157 mg/dL (75-99)
[2016-07-09 14:38] LABS: Glucose,Whole Blood 188 mg/dL (75-99)
[2016-07-09] MEDS ORDERED: Potassium Replacement Protocol 1 EACH MISC MISCELLANE PRN (14:38)
[2016-07-09 15:08] LABS: Glucose,Whole Blood 200 mg/dL (75-99)
[2016-07-09 16:07] LABS: Glucose,Whole Blood 248 mg/dL (75-99)
[2016-07-09 17:51] LABS: Glucose,Whole Blood 156 mg/dL (75-99)
[2016-07-09] MEDS ORDERED: WARFARIN 2.5 MG TAB PO ONE (18:00)
[2016-07-09 18:44] LABS: Glucose,Whole Blood 200 mg/dL (75-99)
[2016-07-09 20:12] LABS: Glucose,Whole Blood 207 mg/dL (75-99)
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
[2016-07-09 21:06] LABS: Glucose,Whole Blood 182 mg/dL (75-99)
[2016-07-09 22:00] LABS: Glucose,Whole Blood 141 mg/dL (75-99)
[2016-07-09] MEDS: MELATONIN 3 MG TABLET PO SCH (22:02)
[2016-07-09 23:07] LABS: Glucose,Whole Blood 167 mg/dL (75-99)
[2016-07-10 00:12] LABS: Glucose,Whole Blood 139 mg/dL (75-99)
[2016-07-10 01:10] LABS: Glucose,Whole Blood 136 mg/dL (75-99)
[2016-07-10] MEDS: DOBUTamine DRIP 500 MG in DEXTROSE/WATER 1 250ML.BAG IV SCH (01:10)
[2016-07-10] MEDS: NOREPINEPHRIN 4 MG-0.9% NS PMX 4 MG/250 ML ML IV SCH ×2 (01:10→05:04)
[2016-07-10 02:12] LABS: Glucose,Whole Blood 130 mg/dL (75-99)
[2016-07-10 03:15] LABS: Glucose,Whole Blood 120 mg/dL (75-99)
[2016-07-10 04:14] LABS: Glucose,Whole Blood 134 mg/dL (75-99)
[2016-07-10 04:37] LABS: CH 30.3; CHCM 31.9; HCT 37.3 % (39.0-53.0); HGB 11.7 gm/dL (13.0-17.5); Hypochromasia Slight; MCHC 31.4 g/dL (31.0-37.0); MCV 95.5 fL (80.0-100.0); Mean Platelet Volume 8.2; RBC 3.91 m/uL (4.30-5.90); RDW 15.9 % (11.5-15.5); WBC 9.5 k/uL (3.8-10.6)
[2016-07-10 04:56] LABS: Anion Gap 4 mmol/L; Blood Urea Nitrogen 50 mg/dL (9-20); Calcium 8.9 mg/dL (8.4-10.2); Carbon Dioxide 29 mmol/L (22-30); Chloride 101 mmol/L (98-107); Glucose 139 mg/dL (74-99); Magnesium 2.2 mg/dL (1.6-2.3); Non-African American GFR(MDRD) 55 (>60 ml/min/1.73 sqM); Phosphorous 4.1 mg/dL (2.5-4.5); Potassium 4.3 mmol/L (3.5-5.1); Sodium 134 mmol/L (137-145)
[2016-07-10 05:03] LABS: Glucose,Whole Blood 148 mg/dL (75-99)
[2016-07-10 05:04] LABS: Prothrombin Time 19.6 sec (9.0-12.0)
[2016-07-10 06:15] LABS: Glucose,Whole Blood 134 mg/dL (75-99)
--- NOTE | 2016-07-10 06:54 | XR ---
EXAMINATION TYPE: XR chest 1V portable DATE OF EXAM: 07/10/2016 CLINICAL HISTORY: Difficulty breathing and CHF progress study. TECHNIQUE: Single AP portable upright view of the chest is obtained. COMPARISON: Chest x-ray from one day earlier and older exams. FINDINGS: Sternal wires and mediastinal clips are present. There is persisting cardiomegaly with ath erosclerotic thoracic aorta. Mixed alveolar and interstitial changes bilaterally remain present. No l arge pleural effusion or pneumothorax is seen. Osseous structures are intact. IMPRESSION: Overall stable findings from one day earlier, cardiomegaly with diffuse bilateral alveo lar and interstitial edema and/or infiltrates all redemonstrated.
[2016-07-10 07:04] LABS: Glucose,Whole Blood 133 mg/dL (75-99)
[2016-07-10] MEDS: LEVALBUTEROL NEB 1.25 MG/3 ML AMP INHALATION SCH ×3 (07:43→20:09)
[2016-07-10 07:58] LABS: Glucose,Whole Blood 140 mg/dL (75-99)
[2016-07-10] MEDS: PANTOPRAZOLE 40 MG TABLET PO SCH (08:09)
[2016-07-10] MEDS: ALLOPURINOL 100 MG TAB PO SCH ×2 (08:09→21:18)
[2016-07-10] MEDS: AMIODARONE 200 MG TAB PO SCH (08:09)
[2016-07-10] MEDS: ASPIRIN 325 MG TAB PO SCH (08:09)
[2016-07-10 09:01] LABS: Glucose,Whole Blood 186 mg/dL (75-99)
[2016-07-10 10:18] LABS: Glucose,Whole Blood 179 mg/dL (75-99)
--- NOTE | 2016-07-10 10:51 | P.PN ---
Subjective Principal diagnosis: Acute respiratory failure secondary to congestive heart failure, pulmonary edema. And acute C. difficile colitis. This is a very pleasant 85-year-old gentleman with a known history of coronary artery disease with previous coronary artery bypass grafting, congestive heart failure, atrial fibrillation anticoagulated with warfarin, amiodarone for rate control, DVT, gastroesophageal reflux disease, hypertension, hyperlipidemia, prostate per trephine status post TURP in April 2016. He had been following with his physician Dr. Mirza in [place] regarding ongoing issues with diarrhea for several days. He was subsequently at [facility] and was a direct admit to here on 07/01/2016. He was found to be C. diff positive. GI services were consulted and was initiated on Questran, Flagyl and vancomycin and the plan is for an outpatient colonoscopy in 4-6 weeks. While here he has developed significant worsening shortness of breath and evidence of worsening congestive heart failure. Last night he received 40 mg of IV Lasix and was placed on BiPAP. He is still in respiratory distress this morning and we are consulted for the same. He is seen in consultation on the regular medical floor. He is awake and alert. He is quite short of breath with minimal conversation. He is restless with the BiPAP. His chest x-ray shows worsening congestive heart failure and pulmonary edema. An echocardiogram had revealed severe global left ventricular hypokinesia. There is also noted moderate aortic stenosis and moderate pulmonary hypertension. Yesterday he is maintaining O2 saturations in the 90s on 2 L/m per nasal cannula. He developed suspected flash pulmonary edema approximately 1:00 this morning was placed on BiPAP and 80% FiO2 to maintain O2 saturations in the 90s. Patient was reevaluated today on 07/05/2016, remains on Lasix drip, he is also on norepinephrine drip at 7.5 mcg/min, Dobutrex at 2.5 mcg/kg/m, Lasix 10 mg per hour drip. Chest x-ray is showing improvement. Urine output is excellent, patient diuresed over 3 L overnight, and he is negative balance of 2.5 L so far. Chest x-ray continues to show some pulmonary edema, but improved compared to yesterday. Even hemodynamics-lopes patient seems to be doing better blood pressure seems to be marginal with relatively low dose of norepinephrine and Dobutrex. Labs were reviewed he had a relatively normal CBC no evidence of leukocytosis. INR is 3.5. Electrolytes were reviewed and his bicarb is 19, BUN is 26 and creatinine is improving down to 1.63 from 1.83 yesterday. Patient was placed on high flow nasal cannula, 15 L, O2 saturations are in the low 90s. He definitely seems to be more comfortable, and he has been off BiPAP all this morning. Patient was reevaluated today on 07/06/2016, remains on Lasix drip at 10 mg per hour, norepinephrine drip at my 8 mcg/m, Dobutrex at 5 mcg/kg/m. Seems to be clinically better, however the chest x-ray is showing slight worsening of his interstitial edema. Patient is in negative balance, however I was expecting more negative balance today than I have noted on the chart. Patient failed his swallow evaluation, and it was felt that he may have some component of aspiration in addition to his interstitial edema. At any rate since the patient seems to be clinically better, I will continue with the same treatment plan including Lasix Dobutrex and norepinephrine. Patient tells me that he is feeling better compared to when he fell 2 days ago. Labs were reviewed WBC count is 9 hemoglobin is 11.5 *Normal BUN is down to 22 creatinine is down to 1.52. Reevaluated today on 07/07/2016, patient remains on Lasix drip, norepinephrine, and Dobutrex. Doses are basically about the same. Patient feels much better clinically, however chest x-ray continues to show interstitial edema bilaterally. Patient is negative about 1 L fluid balance over the last 24 hours. Labs showed WBC count of 6.8 hemoglobin is 11.3, INR is 5.0, electrolytes and renal profile are significantly improved. BUN is 24 creatinine is 1.30. Chest x-ray continues to show pulmonary edema. On 07/08/2016, patient remains on a Lasix drip, norepinephrine at 9 mcg/m, Dobutrex at 5 micrograms per kilo per minute. Patient is negative fluid balance of almost 8 L in the last 2-3 days. However his chest x-ray is not improving as much as expected considering the negative fluid balance. Hence I have recommended at least few doses of Solu-Medrol, on a trial basis for his abnormal chest x-ray. Clinically the patient is feeling much better, breathing a lot easier, even on physical examination does not sound as bad as expected considering the findings on the chest x-ray. Labs were reviewed CBC is normal INR is down to 3.9 electrolytes are normal renal profile is improving with BUN of 29 creatinine of 1.15. The patient is seen again today 07/09/2016 in follow-up in the intensive care unit. He is currently awake and alert in no acute distress. He remains on dobutamine at 5 mcg/kg/m, levophed at 3 mcg/m and Lasix drip at 10 mg per hour. He has a 0.9 normal saline at 10 mL per hour and insulin drip is currently on hold. His chest x-ray does show slight improvement in the congestive heart failure. He remains in a negative balance. He is still requiring 8 L of high flow nasal cannula to maintain O2 saturations in the 90s. Renal function stable and a creatinine of 1.13. The patient is seen again today 07/10/2016 in follow-up in the intensive care unit. He is sitting up in bed. He is awake and alert in no acute distress. He states he is doing better today as compared to yesterday. No worsening shortness of breath. He has a loose nonproductive cough. He does continue to require 6 L of high flow nasal cannula to maintain O2 saturations in the 90s. He remains on levo fed at 4 mcg/m, dobutamine at 2.5 mcg/kg/m, Lasix at 5 mg per hour, insulin at 4 units per hour and a 0.9 normal saline at 10 mL's per hour. He does remain in a negative balance. He is down another kilogram. Current creatinine 1.26. Objective - Vital Signs Vital signs: Vital Signs Temp 97.1 F L 07/10/16 08:00 Pulse 82 07/10/16 10:00 Resp 25 H 07/10/16 10:00 BP 84/57 07/10/16 10:00 Pulse Ox 95 07/10/16 10:00 Intake & Output 07/09/16 07/10/16 07/10/16 18:59 06:59 18:59 Intake Total 752.737 874.930 140.262 Output Total 2855 982 375 Balance -2102.263 -107.070 -234.738 Weight 79.5 kg 78.2 kg Intake: IV 120 299.0 60 DOBUTamine DRIP 500 mg In 59.0 Dextrose/Water 1 250ml. bag @ 2.5 MCG/KG/MIN 5.92 mls/hr IV .Q24H [facility] Rx#: [id number] Furosemide 250 mg In 50 Sodium Chloride 0.9% 225 ml @ 10 MG/HR 10 mls/hr IVP .Q24H [facility] Rx#: [id number] Sodium Chloride 0.9% 1, 120 190 60 000 ml @ 20 mls/hr IV . Q24H [facility] Rx#:[id number] Intake, IV Titration 282.737 165.930 80.262 Amount DOBUTamine DRIP 500 mg In 37.592 87.616 Dextrose/Water 1 250ml. bag @ 2.5 MCG/KG/MIN 5.92 mls/hr IV .Q24H [facility] Rx#: [id number] Furosemide 250 mg In 102.333 Sodium Chloride 0.9% 225 ml @ 10 MG/HR 10 mls/hr IVP .Q24H [facility] Rx#: [id number] Insulin Regular 100 unit 42.000 19.814 6.262 In Sodium Chloride 0.9% 100 ml @ Per Protocol IV .Q0M [facility]IAN Rx#:[id number] Norepinephrin 4 mg-0.9% 100.812 58.5 74 Ns Pmx 4 mg In 250 ml @ Titrate IV .Q0M [facility] Rx#: [id number] Oral 350 410 Output: Urine 2855 982 375 Other: Voiding Method Indwelling Catheter Indwelling Catheter Indwelling Catheter # Bowel Movements 1 - Exam GENERAL EXAM: Alert, resting, in no distress at this point HEAD: Normocephalic. EYES: Normal reaction of pupils, equal size. NOSE: Clear with pink turbinates. THROAT: No erythema or exudates. NECK: No masses, mild JVD. CHEST: No chest wall deformity. LUNGS: Fine crackles at the bases, no rhonchi, no wheezes CVS: S1 and S2 normal with an audible murmur, regular rhythm. ABDOMEN: No hepatosplenomegaly, normal bowel sounds, no guarding or rigidity. SPINE: No scoliosis or deformity SKIN: No rashes CENTRAL NERVOUS SYSTEM: No focal deficits, tone is normal in all 4 extremities. Extremities: There is trace peripheral edema. No clubbing, no cyanosis. Peripheral pulses are intact. - Labs CBC & Chem 7: 07/10/16 04:16 07/10/16 04:16 Labs: Abnormal Lab Results - Last 24 Hours (Table) 07/09/16 07/09/16 07/09/16 Range/Units 11:08 13:17 14:36 RBC (4.30-5.90) m/uL Hgb (13.0-17.5) gm/dL Hct (39.0-53.0) % RDW (11.5-15.5) % PT (9.0-12.0) sec Sodium (137-145) mmol/L BUN (9-20) mg/dL Creatinine (0.66-1.25) mg/dL Glucose (74-99) mg/dL POC Glucose (mg/dL) 257 H 157 H 188 H (75-99) mg/dL 07/09/16 07/09/16 07/09/16 Range/Units 15:06 16:05 17:49 RBC (4.30-5.90) m/uL Hgb (13.0-17.5) gm/dL Hct (39.0-53.0) % RDW (11.5-15.5) % PT (9.0-12.0) sec Sodium (137-145) mmol/L BUN (9-20) mg/dL Creatinine (0.66-1.25) mg/dL Glucose (74-99) mg/dL POC Glucose (mg/dL) 200 H 248 H 156 H (75-99) mg/dL 07/09/16 07/09/16 07/09/16 Range/Units 18:41 20:10 21:05 RBC (4.30-5.90) m/uL Hgb (13.0-17.5) gm/dL Hct (39.0-53.0) % RDW (11.5-15.5) % PT (9.0-12.0) sec Sodium (137-145) mmol/L BUN (9-20) mg/dL Creatinine (0.66-1.25) mg/dL Glucose (74-99) mg/dL POC Glucose (mg/dL) 200 H 207 H 182 H (75-99) mg/dL 07/09/16 07/09/16 07/10/16 Range/Units 21:59 23:05 00:11 RBC (4.30-5.90) m/uL Hgb (13.0-17.5) gm/dL Hct (39.0-53.0) % RDW (11.5-15.5) % PT (9.0-12.0) sec Sodium (137-145) mmol/L BUN (9-20) mg/dL Creatinine (0.66-1.25) mg/dL Glucose (74-99) mg/dL POC Glucose (mg/dL) 141 H 167 H 139 H (75-99) mg/dL 07/10/16 07/10/16 07/10/16 Range/Units 01:08 02:10 03:13 RBC (4.30-5.90) m/uL Hgb (13.0-17.5) gm/dL Hct (39.0-53.0) % RDW (11.5-15.5) % PT (9.0-12.0) sec Sodium (137-145) mmol/L BUN (9-20) mg/dL Creatinine (0.66-1.25) mg/dL Glucose (74-99) mg/dL POC Glucose (mg/dL) 136 H 130 H 120 H (75-99) mg/dL 07/10/16 07/10/16 07/10/16 Range/Units 04:13 04:16 04:16 RBC 3.91 L (4.30-5.90) m/uL Hgb 11.7 L (13.0-17.5) gm/dL Hct 37.3 L (39.0-53.0) % RDW 15.9 H (11.5-15.5) % PT 19.6 H (9.0-12.0) sec Sodium (137-145) mmol/L BUN (9-20) mg/dL Creatinine (0.66-1.25) mg/dL Glucose (74-99) mg/dL POC Glucose (mg/dL) 134 H (75-99) mg/dL 07/10/16 07/10/16 07/10/16 Range/Units 04:16 05:01 06:13 RBC (4.30-5.90) m/uL Hgb (13.0-17.5) gm/dL Hct (39.0-53.0) % RDW (11.5-15.5) % PT (9.0-12.0) sec Sodium 134 L (137-145) mmol/L BUN 50 H (9-20) mg/dL Creatinine 1.26 H (0.66-1.25) mg/dL Glucose 139 H (74-99) mg/dL POC Glucose (mg/dL) 148 H 134 H (75-99) mg/dL 07/10/16 07/10/16 07/10/16 Range/Units 07:01 07:56 09:00 RBC (4.30-5.90) m/uL Hgb (13.0-17.5) gm/dL Hct (39.0-53.0) % RDW (11.5-15.5) % PT (9.0-12.0) sec Sodium (137-145) mmol/L BUN (9-20) mg/dL Creatinine (0.66-1.25) mg/dL Glucose (74-99) mg/dL POC Glucose (mg/dL) 133 H 140 H 186 H (75-99) mg/dL 07/10/16 Range/Units 10:16 RBC (4.30-5.90) m/uL Hgb (13.0-17.5) gm/dL Hct (39.0-53.0) % RDW (11.5-15.5) % PT (9.0-12.0) sec Sodium (137-145) mmol/L BUN (9-20) mg/dL Creatinine (0.66-1.25) mg/dL Glucose (74-99) mg/dL POC Glucose (mg/dL) 179 H (75-99) mg/dL Microbiology - Last 24 Hours (Table) 07/05/16 06:20 Blood Culture - Preliminary Blood No Growth after 120 hours Assessment and Plan Plan: Impression: #1 Acute exacerbation of systolic congestive heart failure requiring BiPAP support. Severe left ventricular global hypokinesia. #2 Acute hypoxic respiratory failure secondary to above. #3 Moderate to severe aortic stenosis. #4 Moderate pulmonary hypertension. #5 Atrial fibrillation, anticoagulated with warfarin. On maintenance amiodarone. Current INR 2.0. #6 Coronary artery disease with previous coronary artery bypass grafting. #7 Hypertension. #8 Hyperlipidemia. #9 Gastroesophageal reflux disease. #10 BPH, status post TURP in April 2016. #11 C. difficile toxicity. Currently on Questran, Flagyl and vancomycin. Plan: The patient was seen and evaluated by Dr. Ferrell. His chest x-ray and labs were reviewed. His chest x-ray as stable compared to previous. There is cardiomegaly with diffuse bilateral alveolar and interstitial edema. He is improved clinically. We'll continue to wean his FiO2 as tolerated. We'll continue with his current medications. He has been slow to progress but is improving daily. We'll continue to monitor him here in the intensive care unit. We'll continue to follow. Critical care time: 32 minutes.
[2016-07-10 10:59] LABS: Glucose,Whole Blood 195 mg/dL (75-99)
[2016-07-10 13:23] LABS: Glucose,Whole Blood 179 mg/dL (75-99)
[2016-07-10 14:14] LABS: Glucose,Whole Blood 174 mg/dL (75-99)
[2016-07-10] MEDS: FUROSEMIDE 250 MG in SODIUM CHLORIDE 0.9% 225 ML IVP SCH ×2 (14:23→20:15)
[2016-07-10] MEDS: SODIUM CHLORIDE 0.9% 1,000 ML IV SCH (14:23)
--- NOTE | 2016-07-10 14:44 | PN ---
Emanuel is an 85-year-old gentleman who is admitted to hospital with congestive heart failure. Has had hypotension. He is feeling better. Leg edema has improved, shortness of breath has improved. He is currently on 2.5 mcg of dobutamine, 2 mcg of Levophed and Lasix drip at 5 mg. I am going to stop the dobutamine at this time. Gradually taper and stop the Levophed and continue the Lasix drip. On exam, heart rate is 84, blood pressure 80/50, respiratory rate is 20. Chest exam reveals diminished air entry bilaterally. Heart exam reveals first and second heart sounds. Systolic murmur at the apex. Abdomen is soft. Exam of extremities reveals bilateral chronic stasis changes with edema. Labs show a hemoglobin of 11.7. Potassium is 4.3. Creatinine is 1.2. BUN is 50. ASSESSMENT: Acute exacerbation of chronic systolic heart failure. PLAN: Will stop the dobutamine at this time. Continue the Lasix drip. Taper and stop the Levophed.
[2016-07-10 14:58] LABS: Glucose,Whole Blood 169 mg/dL (75-99)
[2016-07-10 16:29] LABS: Glucose,Whole Blood 175 mg/dL (75-99)
[2016-07-10 19:07] LABS: Glucose,Whole Blood 103 mg/dL (75-99)
[2016-07-10 20:14] LABS: Glucose,Whole Blood 175 mg/dL (75-99)
[2016-07-10] MEDS: INSULIN REGULAR 100 UNIT in SODIUM CHLORIDE 0.9% 100 ML IV SCH (20:14)
[2016-07-10 21:18] LABS: Glucose,Whole Blood 186 mg/dL (75-99)
[2016-07-10] MEDS: MELATONIN 3 MG TABLET PO SCH (21:18)
[2016-07-10 21:59] LABS: Glucose,Whole Blood 247 mg/dL (75-99)
--- NOTE | 2016-07-10 22:18 | PN ---
HOSPITAL COURSE AND SUBJECTIVE DATA: This is an 85-year-old gentleman who was admitted to the intensive care unit with progressive worsening of difficulty in breathing. Patient apparently has had some diarrhea that has been ongoing, underwent a colonoscopy a few weeks prior to admission as well. Patient was admitted to the hospital with difficulty in breathing secondary to an acute exacerbation of congestive heart failure that is systolic in nature. Patient was also noted to have C difficile infection as well. Patient was noted to have significant worsening of his heart failure, was started on diuretics and thereafter improved slightly; however, worsened during the initial day of admission. Patient was placed on BiPAP, was also hypotensive, was started on Levophed and thereafter placed on an inotrope with dobutamine as well. Over the past 3 days patient has been in negative fluid balance. Today patient is currently on 3 L of supplemental oxygen. He is awake, alert, oriented x3. He states he is doing well. Denies having any additional complaints, including pain in his abdomen, chest pain, headaches or blurry vision. PHYSICAL EXAM: VITALS: Temperature 97.1, heart rate 82, respiratory rate 25. Blood pressure is 84/57. Saturating 95% on 3 L supplemental oxygen, on a trivial dose of Levophed ( ) GENERAL APPEARANCE: Alert, oriented x3. Does not appear to be in distress. HEAD: Atraumatic, normocephalic. Pupils equal, round and reactive to light and accommodation. Neck is supple. No JVD. LUNGS: Trace crackles at the bases. Good air movement. No rhonchi or wheezing. HEART: S1, S2 heard. Regular rate and rhythm. A systolic murmur is appreciated. ABDOMEN: Soft, nontender. No organomegaly. NEUROLOGIC: No focal motor or sensory deficits. LOWER EXTREMITIES: Trace edema noted. Laboratory data include hemoglobin of 11.7, hematocrit 37.3, white count 9.5, platelets 208. Sodium 134, potassium 4.3, chloride 101, bicarbonate 29. BUN 50, creatinine of 1.26. ASSESSMENT AND PLAN: 1. Acute exacerbation of systolic heart failure causing acute hypoxic respiratory failure. 2. Moderate to severe aortic stenosis. 3. Moderate pulmonary hypertension. 4. Atrial fibrillation, chronic. 5. Coronary artery disease. 6. Hypertension. 7. Dyslipidemia. 8. Benign prostatic hypertrophy. 9. Clostridium difficile infection, currently on a course with vancomycin and metronidazole. PLAN: Dobutamine was discontinued. Patient's renal function appears to be slightly worsening. Lasix drip has been slowly being tapered off. So is Levophed. Continue ongoing care. Patient is improving overall. Maintain strict I&O. Repeat renal function in a.m. Will follow.
[2016-07-10 23:12] LABS: Glucose,Whole Blood 134 mg/dL (75-99)
[2016-07-11 00:59] LABS: Glucose,Whole Blood 93 mg/dL (75-99)
[2016-07-11] MEDS: NOREPINEPHRIN 4 MG-0.9% NS PMX 4 MG/250 ML ML IV SCH ×2 (01:01→23:23)
[2016-07-11 02:14] LABS: Glucose,Whole Blood 99 mg/dL (75-99)
[2016-07-11 03:20] LABS: Glucose,Whole Blood 96 mg/dL (75-99)
[2016-07-11 04:20] LABS: Glucose,Whole Blood 112 mg/dL (75-99)
[2016-07-11 05:05] LABS: Glucose,Whole Blood 105 mg/dL (75-99)
[2016-07-11 05:41] LABS: Anisocytosis Slight; CH 30.1; CHCM 31.8; HCT 36.9 % (39.0-53.0); HDW 3.11; HGB 11.6 gm/dL (13.0-17.5); Hypochromasia Slight; MCH 29.9 pg (25.0-35.0); MCHC 31.4 g/dL (31.0-37.0); MCV 95.1 fL (80.0-100.0); Mean Platelet Volume 8.1; RBC 3.88 m/uL (4.30-5.90); WBC 9.4 k/uL (3.8-10.6)
[2016-07-11 05:49] LABS: INR 1.8 (<1.1)
[2016-07-11 05:50] LABS: Prothrombin Time 17.3 sec (9.0-12.0)
[2016-07-11 05:56] LABS: Calcium 8.6 mg/dL (8.4-10.2); Magnesium 2.2 mg/dL (1.6-2.3); Phosphorous 3.8 mg/dL (2.5-4.5); Potassium 4.1 mmol/L (3.5-5.1)
[2016-07-11 07:16] LABS: Glucose,Whole Blood 123 mg/dL (75-99)
--- NOTE | 2016-07-11 07:16 | XR ---
EXAMINATION TYPE: XR chest 1V portable DATE OF EXAM: 07/11/2016 HISTORY: Shortness of breath. COMPARISON: 07/10/2016 TECHNIQUE: Single view of the chest is submitted. FINDINGS: Demonstrated are scattered senescent parenchymal change. Scattered mixed interstitial and alveolar infiltrates persist. Small effusions noted. The heart is enlarged. Hilar and mediastinal structures are within normal limits. Degenerative changes are seen of the dorsal spine. IMPRESSION: 1. Stable chest.
[2016-07-11] MEDS: LEVALBUTEROL NEB 1.25 MG/3 ML AMP INHALATION SCH (08:48)
[2016-07-11 09:06] LABS: Glucose,Whole Blood 170 mg/dL (75-99)
[2016-07-11] MEDS: FUROSEMIDE 40 MG TAB PO SCH ×2 (09:43→18:26)
[2016-07-11] MEDS: ALLOPURINOL 100 MG TAB PO SCH ×2 (09:44→21:14)
[2016-07-11] MEDS: ASPIRIN 325 MG TAB PO SCH (09:44)
[2016-07-11] MEDS: AMIODARONE 200 MG TAB PO SCH (09:44)
[2016-07-11] MEDS: PANTOPRAZOLE 40 MG TABLET PO SCH (09:44)
[2016-07-11 11:06] LABS: Glucose,Whole Blood 186 mg/dL (75-99)
[2016-07-11 12:02] LABS: Glucose,Whole Blood 173 mg/dL (75-99)
--- NOTE | 2016-07-11 12:11 | PN ---
This is an 85-year-old gentleman who is again seen. He resides in the ICU currently. He is sitting up in bed. No acute distress. We have made some changes with his medications. We discontinued his IV Lasix and put him on Lasix 40 mg p.o. q.12. We are weaning his Levophed off. He is on 0.9 at 10. His dobutamine was turned off yesterday by Cardiology. The patient is doing reasonably well otherwise. Chest x-ray is stable. He still shows a pattern of diffuse heart failure. Other than that things are going about the same. He is on O2 at 2 L. His nurse today is Jeanne. I am hoping to get him off all his drips currently. Current vital signs include a temperature 98, heart rate 80, respiratory rate 18, blood pressure 84/54 with a mean 64 and saturations 93% on 2 L. Appears in no acute distress. HEENT examination is grossly unremarkable. Mucous membranes are moist. NECK: Supple. Full range of motion. No adenopathy or thyromegaly. Neck veins are flat. Cardiovascular examination reveals regular rhythm and rate. Heart sounds are distant. A soft systolic murmur. S1 and S2 appear normal. Lungs reveal some diffuse bibasilar crackles. Breath sounds are equal. No rhonchi or wheezes. ABDOMEN: Soft. Bowel sounds are heard. No masses. Extremities are intact. Mild edema. No cyanosis or clubbing. Skin is without rash, save for a few areas of ecchymoses. Neurological examination is nonfocal. Labs are reviewed. White count 9.4, hemoglobin 11.6, hematocrit 36.9, platelet count normal. PT 17.3, INR 1.8. Sodium 135, potassium 4.1, chloride 100, CO2 of 27. BUN and creatinine were 62 and 1.40. Anion gap is 8. The rest of the labs look okay. Microbiology is negative. X-rays are reviewed. Medications are reviewed. ASSESSMENT: 1. Acute exacerbation of systolic congestive heart failure requiring BiPAP support, somewhat improved. 2. Hypoxemic respiratory failure secondary to fluid overload. 3. Moderate to severe aortic stenosis. 4. Moderate pulmonary hypertension. 5. History of atrial fibrillation. 6. Coronary artery disease with previous bypass grafting. 7. Essential hypertension. 8. Hyperlipidemia. 9. Gastroesophageal reflux disease. 10. Benign prostatic hypertrophy, status post TURP in March of this year. 11. Clostridium difficile diarrhea, currently treated. PLAN: The patient is doing relatively well. The Lasix will be changed to oral Lasix 40 mg q.12. Levophed will be weaned off. Dobutamine was turned off yesterday. We will continue to follow. Prognosis is guarded.
[2016-07-11 13:04] LABS: Glucose,Whole Blood 145 mg/dL (75-99)
--- NOTE | 2016-07-11 13:55 | PN ---
Emanuel is an 85-year-old gentleman who is admitted to hospital with acute exacerbation of chronic systolic heart failure, remains hypotensive and is still on Levophed. We are currently trying to be wean and stop. He is on oral Lasix at the moment, leg edema has improved and shortness of breath has resolved. On exam, comfortable at rest. Heart rate is 76, his blood pressure is 80/48, respiratory rate is 18. Chest exam reveals diminished air entry at the bases. Heart exam reveals first and second heart sounds. No gallop. Abdomen is soft. Exam of the extremities reveals 1+ edema. Peripheral pulses are felt. Labs show that BUN is 62. Creatinine is 1.4. Potassium is 4.1. Hemoglobin is 11.6. ASSESSMENT: 1. Acute exacerbation of chronic systolic heart failure. 2. Hypertension. PLAN: Will wean and stop Levophed and then stable transfer him out of ICU.
[2016-07-11 14:35] LABS: Glucose,Whole Blood 131 mg/dL (75-99)
[2016-07-11] MEDS ORDERED: INSULIN LISPRO (humaLOG) 300 UNIT/3 ML VIAL SQ SCH (17:30)
[2016-07-11] MEDS ORDERED: WARFARIN 2.5 MG TAB PO ONE (18:00)
--- NOTE | 2016-07-11 18:07 | P.PN ---
Subjective HOSPITAL COURSE AND SUBJECTIVE DATA: This is an 85-year-old gentleman who was admitted to the intensive care unit with progressive worsening of difficulty in breathing. Patient apparently has had some diarrhea that has been ongoing, underwent a colonoscopy a few weeks prior to admission as well. Patient was admitted to the hospital with difficulty in breathing secondary to an acute exacerbation of congestive heart failure that is systolic in nature. Patient was also noted to have C difficile infection as well. Patient was noted to have significant worsening of his heart failure, was started on diuretics and thereafter improved slightly; however, worsened during the initial day of admission. Patient was placed on BiPAP, was also hypotensive, was started on Levophed and thereafter placed on an inotrope with dobutamine as well. Over the past 3 days patient has been in negative fluid balance. Today patient is currently on 3 L of supplemental oxygen. He is awake, alert, oriented x3. He states he is doing well. Denies having any additional complaints, including pain in his abdomen, chest pain, headaches or blurry vision. 07/11/16 doing well One Bm this am no other complaints reported denies fevers, chills, nausea, vomiting, chest pain. PHYSICAL EXAM: Saturating 95% on 2 L supplemental oxygen, on a trivial dose of Levophed GENERAL APPEARANCE: Alert, oriented x3. Does not appear to be in distress. HEAD: Atraumatic, normocephalic. Pupils equal, round and reactive to light and accommodation. Neck is supple. No JVD. LUNGS: Trace crackles at the bases. Good air movement. No rhonchi or wheezing. HEART: S1, S2 heard. Regular rate and rhythm. A systolic murmur is appreciated. ABDOMEN: Soft, nontender. No organomegaly. NEUROLOGIC: No focal motor or sensory deficits. LOWER EXTREMITIES: Trace edema noted. Objective - Vital Signs Vital signs: Vital Signs Temp 97.1 F L 07/11/16 12:00 Pulse 77 07/11/16 16:00 Resp 20 07/11/16 16:00 BP 79/51 07/11/16 16:00 Pulse Ox 94 L 07/11/16 16:00 Intake & Output 07/10/16 07/11/16 07/11/16 18:59 06:59 18:59 Intake Total 487.412 743.712 363.25 Output Total 1015 1375 780 Balance -527.588 -631.288 -416.75 Weight 75.2 kg Intake: IV 170 419 220 Furosemide 250 mg In 54 5 Sodium Chloride 0.9% 225 ml @ 10 MG/HR 10 mls/hr IVP .Q24H [facility] Rx#: [id number] Norepinephrin 4 mg-0.9% 165 15 Ns Pmx 4 mg In 250 ml @ Titrate IV .Q0M [facility] Rx#: [id number] Sodium Chloride 0.9% 1, 170 200 200 000 ml @ 20 mls/hr IV . Q24H [facility] Rx#:[id number] Intake, IV Titration 317.412 84.712 113.25 Amount DOBUTamine DRIP 500 mg In 77.651 Dextrose/Water 1 250ml. bag @ 2.5 MCG/KG/MIN 5.92 mls/hr IV .Q24H [facility] Rx#: [id number] Furosemide 250 mg In 110.917 29.333 Sodium Chloride 0.9% 225 ml @ 10 MG/HR 10 mls/hr IVP .Q24H [facility] Rx#: [id number] Insulin Regular 100 unit 14.844 15.066 0 In Sodium Chloride 0.9% 100 ml @ Per Protocol IV .Q0M [facility] Rx#:[id number] Norepinephrin 4 mg-0.9% 114 40.313 113.25 Ns Pmx 4 mg In 250 ml @ Titrate IV .Q0M [facility] Rx#: [id number] Oral 240 30 Output: Urine 1015 1375 780 Other: Voiding Method Indwelling Catheter Indwelling Catheter Indwelling Catheter # Bowel Movements 1 - Labs CBC & Chem 7: 07/11/16 05:11 07/11/16 05:11 Labs: Abnormal Lab Results - Last 24 Hours (Table) 07/10/16 07/10/16 07/10/16 Range/Units 19:06 20:13 21:16 RBC (4.30-5.90) m/uL Hgb (13.0-17.5) gm/dL Hct (39.0-53.0) % RDW (11.5-15.5) % PT (9.0-12.0) sec Sodium (137-145) mmol/L BUN (9-20) mg/dL Creatinine (0.66-1.25) mg/dL POC Glucose (mg/dL) 103 H 175 H 186 H (75-99) mg/dL 07/10/16 07/10/16 07/11/16 Range/Units 21:58 23:10 04:19 RBC (4.30-5.90) m/uL Hgb (13.0-17.5) gm/dL Hct (39.0-53.0) % RDW (11.5-15.5) % PT (9.0-12.0) sec Sodium (137-145) mmol/L BUN (9-20) mg/dL Creatinine (0.66-1.25) mg/dL POC Glucose (mg/dL) 247 H 134 H 112 H (75-99) mg/dL 07/11/16 07/11/16 07/11/16 Range/Units 05:04 05:11 05:11 RBC 3.88 L (4.30-5.90) m/uL Hgb 11.6 L (13.0-17.5) gm/dL Hct 36.9 L (39.0-53.0) % RDW 16.0 H (11.5-15.5) % PT 17.3 H (9.0-12.0) sec Sodium (137-145) mmol/L BUN (9-20) mg/dL Creatinine (0.66-1.25) mg/dL POC Glucose (mg/dL) 105 H (75-99) mg/dL 07/11/16 07/11/16 07/11/16 Range/Units 05:11 07:14 09:03 RBC (4.30-5.90) m/uL Hgb (13.0-17.5) gm/dL Hct (39.0-53.0) % RDW (11.5-15.5) % PT (9.0-12.0) sec Sodium 135 L (137-145) mmol/L BUN 62 H (9-20) mg/dL Creatinine 1.40 H (0.66-1.25) mg/dL POC Glucose (mg/dL) 123 H 170 H (75-99) mg/dL 07/11/16 07/11/16 07/11/16 Range/Units 11:04 12:00 13:02 RBC (4.30-5.90) m/uL Hgb (13.0-17.5) gm/dL Hct (39.0-53.0) % RDW (11.5-15.5) % PT (9.0-12.0) sec Sodium (137-145) mmol/L BUN (9-20) mg/dL Creatinine (0.66-1.25) mg/dL POC Glucose (mg/dL) 186 H 173 H 145 H (75-99) mg/dL 07/11/16 Range/Units 14:34 RBC (4.30-5.90) m/uL Hgb (13.0-17.5) gm/dL Hct (39.0-53.0) % RDW (11.5-15.5) % PT (9.0-12.0) sec Sodium (137-145) mmol/L BUN (9-20) mg/dL Creatinine (0.66-1.25) mg/dL POC Glucose (mg/dL) 131 H (75-99) mg/dL Microbiology - Last 24 Hours (Table) 07/05/16 06:20 Blood Culture - Final Blood No Growth after 144 hours Assessment and Plan Plan: ASSESSMENT AND PLAN: 1. Acute exacerbation of systolic heart failure causing acute hypoxic respiratory failure. 2. Moderate to severe aortic stenosis. 3. Moderate pulmonary hypertension. 4. Atrial fibrillation, chronic. 5. Coronary artery disease. 6. Hypertension. 7. Dyslipidemia. 8. Benign prostatic hypertrophy. 9. Clostridium difficile infection, currently on a course with vancomycin and metronidazole. PLAN: improving overall titrate off levophed maybe a candidate for digoxin therapy. will defer to cardiology hold off on iv diuretics prognosis is still poor due to significant comorbidities. start basal dose levemir 10 units with insulin sliding scale .
[2016-07-11] MEDS: INSULIN LISPRO (humaLOG) 300 UNIT/3 ML VIAL SQ SCH ×2 (18:26→21:14)
[2016-07-11 18:28] LABS: Glucose,Whole Blood 201 mg/dL (75-99)
[2016-07-11 19:15] LABS: Glucose,Whole Blood 141 mg/dL (75-99)
[2016-07-11 21:14] LABS: Glucose,Whole Blood 135 mg/dL (75-99)
[2016-07-11] MEDS: MELATONIN 3 MG TABLET PO SCH (21:14)
[2016-07-11] MEDS: SODIUM CHLORIDE 0.9% 1,000 ML IV SCH (21:18)
[2016-07-11] MEDS: INSULIN DETEMIR 100 UNIT/ML 10 ML VIAL SQ SCH (21:18)
[2016-07-12] MEDS: HYDROcodone/APAP 5-325MG 1 EACH TAB PO PRN (00:56)
[2016-07-12 04:37] LABS: CH 30.1; CHCM 32.7; HCT 35.8 % (39.0-53.0); HDW 3.18; HGB 11.7 gm/dL (13.0-17.5); Hypochromasia Slight; MCH 30.1 pg (25.0-35.0); MCHC 32.5 g/dL (31.0-37.0); MCV 92.6 fL (80.0-100.0); Mean Platelet Volume 8.3; RBC 3.87 m/uL (4.30-5.90); RDW 15.8 % (11.5-15.5); WBC 9.3 k/uL (3.8-10.6)
[2016-07-12 04:47] LABS: INR 1.6 (<1.1); Prothrombin Time 15.1 sec (9.0-12.0)
[2016-07-12 04:49] LABS: Calcium 8.5 mg/dL (8.4-10.2); Potassium 4.4 mmol/L (3.5-5.1)
[2016-07-12 07:50] LABS: Glucose,Whole Blood 110 mg/dL (75-99)
[2016-07-12] MEDS: INSULIN LISPRO (humaLOG) 300 UNIT/3 ML VIAL SQ SCH ×4 (08:12→20:59)
[2016-07-12] MEDS: ASPIRIN 325 MG TAB PO SCH ×2 (08:13→08:14)
[2016-07-12] MEDS: FUROSEMIDE 40 MG TAB PO SCH ×2 (08:14→18:14)
[2016-07-12] MEDS: ALLOPURINOL 100 MG TAB PO SCH ×2 (08:14→20:57)
[2016-07-12] MEDS: AMIODARONE 200 MG TAB PO SCH (08:14)
[2016-07-12] MEDS: SODIUM CHLORIDE 0.9% 1,000 ML IV SCH (08:14)
[2016-07-12] MEDS: PANTOPRAZOLE 40 MG TABLET PO SCH (08:14)
[2016-07-12 10:06] VITALS: BMI 25.9
--- NOTE | 2016-07-12 11:36 | PN ---
An 85-year-old gentleman with a history of cardiomyopathy. He has a very low ejection fraction. His blood pressure runs chronically low. He has got a history of acute congestive heart failure systolic in nature. He was on BiPAP for a period of time. He also has hypoxemic respiratory failure, severe aortic stenosis and pulmonary hypertension. The patient is doing well. He is still on Levophed at 8 mcg per minute. Apparently, they went up on it when we told them to stop it altogether. Both Cardiology and I feel that he does not need the Levophed at this point. His O2 is run at 2 L. He has got an IV of 0.9 at KVO and the Levophed at 8 mcg per minute. He is completely asymptomatic whether he has it on or not. Currently, he seemed relatively comfortable. No complaints. No chest pain. No shortness of breath. Temperature 97.4, heart rate 81, respiratory rate 24, blood pressure 96/58 with mean 70, two liter saturation 91%. Appears in no acute distress. HEENT examination is grossly unremarkable. Mucous membranes are moist. NECK: Supple. Full range of motion. No adenopathy or thyromegaly. Neck veins are flat. Cardiovascular examination reveals regular rhythm and rate. S1, S2 normal. No S3, S4 or murmur. Lungs reveal a few scattered crackles. No wheezes. No rhonchi. ABDOMEN: Soft. Bowel sounds are heard. Extremities are intact. No cyanosis, clubbing, or significant edema. Maybe some mild edema. Skin without rash. Neurologic examination is nonfocal. Labs are reviewed. White count 9.3, hemoglobin 11.7, hematocrit 35.8, platelet count 244,000. PT, INR 15.1 and 1.6 respectively. Sodium 132, potassium 4.4, chloride 100, CO2 of 25. BUN and creatinine 70 and 1.50. No recent x-rays to report. Medications are reviewed. Microbiology is all negative. ASSESSMENT: 1. Acute exacerbation of systolic congestive heart failure requiring BiPAP support, somewhat improved. 2. Hypoxemic respiratory failure secondary to fluid overload. 3. Moderate to severe aortic stenosis as an explanation for the patient's worsening heart failure. 4. Moderate pulmonary hypertension. 5. History of atrial fibrillation. 6. Coronary artery disease with previous bypass grafting. 7. Essential hypertension. 8. Hyperlipidemia. 9. Gastroesophageal reflux disease. 10. Benign prostatic hypertrophy, status post TURP in April of this year. 11. Clostridium difficile diarrhea, currently treated and resolved. PLAN: The patient is doing reasonably well. Will DC the Levophed. No additional recommendations are made. The patient will be transferred out to the floor. The patient will not be started back on Levophed at this point. I may put the patient on some midodrine for blood pressure support.
[2016-07-12 11:56] LABS: Glucose,Whole Blood 129 mg/dL (75-99)
--- NOTE | 2016-07-12 11:59 | PN ---
An 85-year-old gentleman with history of cardiomyopathy with congestive heart failure who is admitted to hospital with chronic systolic heart failure. He has been hypotensive and remains hypotensive. Currently being worked up for hyperadrenalism by Dr. Ferrell. Overall he has remained stable clinically. We are trying to transfer him out of ICU. Levophed is not making much of a difference to his blood pressure. On exam, heart rate is 80 beats per minute, blood pressure 96/58, respiratory rate is 18. Chest exam reveals diminished air entry at the bases. Heart exam reveals first and second heart sounds. No gallop. Abdomen is soft. Exam of the extremities reveals 1+ edema. Peripheral pulses are felt. ASSESSMENT: 1. Chronic systolic heart failure. 2. Hypotension. PLAN: Continue current medications and transfer out of ICU.
[2016-07-12] MEDS ORDERED: HYDROmorphone 1 MG/ML 1 ML SYRINGE ONE (12:38)
[2016-07-12] MEDS ORDERED: HYDROmorphone 1 MG/ML 1 ML SYRINGE IVP PRN (12:46)
[2016-07-12] MEDS ORDERED: DIGOXIN 250 MCG/ML 2 ML AMP IVP ONE (14:20)
[2016-07-12] MEDS ORDERED: ALPRAZolam 0.25 MG TAB PO PRN (14:20)
--- NOTE | 2016-07-12 16:22 | P.PN ---
Subjective HOSPITAL COURSE AND SUBJECTIVE DATA: This is an 85-year-old gentleman who was admitted to the intensive care unit with progressive worsening of difficulty in breathing. Patient apparently has had some diarrhea that has been ongoing, underwent a colonoscopy a few weeks prior to admission as well. Patient was admitted to the hospital with difficulty in breathing secondary to an acute exacerbation of congestive heart failure that is systolic in nature. Patient was also noted to have C difficile infection as well. Patient was noted to have significant worsening of his heart failure, was started on diuretics and thereafter improved slightly; however, worsened during the initial day of admission. Patient was placed on BiPAP, was also hypotensive, was started on Levophed and thereafter placed on an inotrope with dobutamine as well. Over the past 3 days patient has been in negative fluid balance. Today patient is currently on 3 L of supplemental oxygen. He is awake, alert, oriented x3. He states he is doing well. Denies having any additional complaints, including pain in his abdomen, chest pain, headaches or blurry vision. 07/11/16 doing well One Bm this am no other complaints reported denies fevers, chills, nausea, vomiting, chest pain. 07/12/2016 Currently blood pressures are suboptimal. After long discussion Levophed was discontinued this morning it was titrated up to 8 mics this morning Patient is awake states to be doing well patient apparently was slightly drowsy earlier There was some discussion about hospice. PHYSICAL EXAM: Saturating 95% on 2 L supplemental oxygen, GENERAL APPEARANCE: Alert, oriented x3. Does not appear to be in distress. HEAD: Atraumatic, normocephalic. Pupils equal, round and reactive to light and accommodation. Neck is supple. No JVD. LUNGS: Trace crackles at the bases. Good air movement. No rhonchi or wheezing. HEART: S1, S2 heard. Regular rate and rhythm. A systolic murmur is appreciated. ABDOMEN: Soft, nontender. No organomegaly. NEUROLOGIC: No focal motor or sensory deficits. LOWER EXTREMITIES: Trace edema noted. Objective - Vital Signs Vital signs: Vital Signs Temp 98.1 F 07/12/16 12:00 Pulse 72 07/12/16 12:00 Resp 29 H 07/12/16 12:00 BP 68/43 07/12/16 12:00 Pulse Ox 98 07/12/16 12:00 Intake & Output 07/11/16 07/12/16 07/12/16 18:59 06:59 18:59 Intake Total 403.25 359.625 120 Output Total 980 880 555 Balance -576.75 -520.375 -435 Weight 75.2 kg 75.2 kg Intake: IV 260 240 120 Furosemide 250 mg In 5 Sodium Chloride 0.9% 225 ml @ 10 MG/HR 10 mls/hr IVP .Q24H [facility] Rx#: [id number] Norepinephrin 4 mg-0.9% 15 Ns Pmx 4 mg In 250 ml @ Titrate IV .Q0M [facility] Rx#: [id number] Sodium Chloride 0.9% 1, 240 240 120 000 ml @ 20 mls/hr IV . Q24H [facility] Rx#:[id number] Intake, IV Titration 113.25 119.625 Amount Insulin Regular 100 unit 0 In Sodium Chloride 0.9% 100 ml @ Per Protocol IV .Q0M [facility] Rx#:[id number] Norepinephrin 4 mg-0.9% 113.25 119.625 Ns Pmx 4 mg In 250 ml @ Titrate IV .Q0M [facility] Rx#: [id number] Oral 30 Output: Urine 980 880 555 Other: Voiding Method Indwelling Catheter Indwelling Catheter Indwelling Catheter - Labs CBC & Chem 7: 07/12/16 04:23 07/12/16 04:23 Labs: Abnormal Lab Results - Last 24 Hours (Table) 07/11/16 07/11/16 07/11/16 Range/Units 18:25 19:13 21:13 RBC (4.30-5.90) m/uL Hgb (13.0-17.5) gm/dL Hct (39.0-53.0) % RDW (11.5-15.5) % PT (9.0-12.0) sec Sodium (137-145) mmol/L BUN (9-20) mg/dL Creatinine (0.66-1.25) mg/dL Glucose (74-99) mg/dL POC Glucose (mg/dL) 201 H 141 H 135 H (75-99) mg/dL 07/12/16 07/12/16 07/12/16 Range/Units 04:23 04:23 04:23 RBC 3.87 L (4.30-5.90) m/uL Hgb 11.7 L (13.0-17.5) gm/dL Hct 35.8 L (39.0-53.0) % RDW 15.8 H (11.5-15.5) % PT 15.1 H (9.0-12.0) sec Sodium 132 L (137-145) mmol/L BUN 70 H (9-20) mg/dL Creatinine 1.50 H (0.66-1.25) mg/dL Glucose 116 H (74-99) mg/dL POC Glucose (mg/dL) (75-99) mg/dL 07/12/16 07/12/16 Range/Units 07:48 11:55 RBC (4.30-5.90) m/uL Hgb (13.0-17.5) gm/dL Hct (39.0-53.0) % RDW (11.5-15.5) % PT (9.0-12.0) sec Sodium (137-145) mmol/L BUN (9-20) mg/dL Creatinine (0.66-1.25) mg/dL Glucose (74-99) mg/dL POC Glucose (mg/dL) 110 H 129 H (75-99) mg/dL Assessment and Plan Plan: ASSESSMENT AND PLAN: 1. Acute exacerbation of systolic heart failure causing acute hypoxic respiratory failure. 2. Moderate to severe aortic stenosis. 3. Moderate pulmonary hypertension. 4. Atrial fibrillation, chronic. 5. Coronary artery disease. 6. Hypertension. 7. Dyslipidemia. 8. Benign prostatic hypertrophy. 9. Clostridium difficile infection, currently on a course with vancomycin and metronidazole. PLAN: Attempt 1 dose of digoxin. CODE STATUS is change and no code no pressors This was discussed with the price economist on the patient and family if patient does not improve or worsen in the a.m. we'll likely discuss discharging home without any additional care to add . Renal function in the a.m. prognosis is still poor due to significant comorbidities. basal dose levemir 10 units with insulin sliding scale .
[2016-07-12 16:52] LABS: Glucose,Whole Blood 135 mg/dL (75-99)
[2016-07-12] MEDS: MIDODRINE 5 MG TAB PO SCH (18:22)
[2016-07-12 21:00] LABS: Glucose,Whole Blood 259 mg/dL (75-99)
[2016-07-12] MEDS: INSULIN DETEMIR 100 UNIT/ML 10 ML VIAL SQ SCH (21:03)
[2016-07-13 04:50] LABS: Basophils % (A) 0 %; CH 30.3; CHCM 32.3; Eosinophils % (A) 0 %; HCT 32.9 % (39.0-53.0); HDW 3.04; HGB 10.5 gm/dL (13.0-17.5); Hypochromasia Slight; Luc # (Auto) 0.08; Luc % (Auto) 1; Lymphocytes # (A) 0.7 k/uL (1.0-4.8); Lymphocytes % (A) 12 %; MCHC 31.9 g/dL (31.0-37.0); MCV 94.1 fL (80.0-100.0); Mean Platelet Volume 8.6; Monocytes # (A) 0.3 k/uL (0-1.0); Monocytes % (A) 6 %; Neutrophils # (A) 4.8 k/uL (1.3-7.7); Neutrophils % (A) 81 %; RDW 15.9 % (11.5-15.5); WBC (Perox) 6.54
[2016-07-13 05:26] LABS: ALT 44 U/L (21-72); AST 48 U/L (17-59); Alkaline Phosphatase 106 U/L (38-126); Anion Gap 3 mmol/L; Blood Urea Nitrogen 63 mg/dL (9-20); Calcium 8.2 mg/dL (8.4-10.2); Carbon Dioxide 30 mmol/L (22-30); Chloride 100 mmol/L (98-107); Glucose 56 mg/dL (74-99); Non-African American GFR(MDRD) 53 (>60 ml/min/1.73 sqM); Potassium 3.8 mmol/L (3.5-5.1); Sodium 133 mmol/L (137-145); Total Bilirubin 0.5 mg/dL (0.2-1.3); Total Protein 4.1 g/dL (6.3-8.2)
[2016-07-13] MEDS ORDERED: Potassium Replacement Protocol 1 EACH MISC MISCELLANE PRN (05:59)
[2016-07-13] MEDS ORDERED: POTASSIUM CHLORIDE ORAL LIQUID 40 MEQ/30 ML CUP NG-TUBE SCH (06:00)
[2016-07-13 06:04] LABS: Glucose,Whole Blood 68 mg/dL (75-99)
[2016-07-13 06:46] LABS: Glucose,Whole Blood 138 mg/dL (75-99)
[2016-07-13] MEDS: MIDODRINE 5 MG TAB PO SCH (08:26)
[2016-07-13] MEDS: FUROSEMIDE 40 MG TAB PO SCH (08:27)
[2016-07-13] MEDS: ASPIRIN 325 MG TAB PO SCH (08:27)
[2016-07-13] MEDS: AMIODARONE 200 MG TAB PO SCH (08:27)
[2016-07-13] MEDS: PANTOPRAZOLE 40 MG TABLET PO SCH (08:27)
[2016-07-13] MEDS: ALLOPURINOL 100 MG TAB PO SCH (08:27)
[2016-07-13] MEDS: INSULIN LISPRO (humaLOG) 300 UNIT/3 ML VIAL SQ SCH (08:30)
[2016-07-13 08:31] LABS: Glucose,Whole Blood 93 mg/dL (75-99)
[2016-07-13 08:40] LABS: INR 1.6 (<1.1); Prothrombin Time 15.2 sec (9.0-12.0)
[2016-07-13] MEDS ORDERED: DIGOXIN 125 MCG TAB PO SCH (09:00)
--- NOTE | 2016-07-13 11:54 | P.PN ---
Subjective Principal diagnosis: Acute respiratory failure secondary to congestive heart failure, pulmonary edema. And acute C. difficile colitis. This is a very pleasant 85-year-old gentleman with a known history of coronary artery disease with previous coronary artery bypass grafting, congestive heart failure, atrial fibrillation anticoagulated with warfarin, amiodarone for rate control, DVT, gastroesophageal reflux disease, hypertension, hyperlipidemia, prostate per trephine status post TURP in April 2016. He had been following with his physician Dr. Mirza in [place] regarding ongoing issues with diarrhea for several days. He was subsequently at [facility] and was a direct admit to here on 07/01/2016. He was found to be C. diff positive. GI services were consulted and was initiated on Questran, Flagyl and vancomycin and the plan is for an outpatient colonoscopy in 4-6 weeks. While here he has developed significant worsening shortness of breath and evidence of worsening congestive heart failure. Last night he received 40 mg of IV Lasix and was placed on BiPAP. He is still in respiratory distress this morning and we are consulted for the same. He is seen in consultation on the regular medical floor. He is awake and alert. He is quite short of breath with minimal conversation. He is restless with the BiPAP. His chest x-ray shows worsening congestive heart failure and pulmonary edema. An echocardiogram had revealed severe global left ventricular hypokinesia. There is also noted moderate aortic stenosis and moderate pulmonary hypertension. Yesterday he is maintaining O2 saturations in the 90s on 2 L/m per nasal cannula. He developed suspected flash pulmonary edema approximately 1:00 this morning was placed on BiPAP and 80% FiO2 to maintain O2 saturations in the 90s. Patient was reevaluated today on 07/05/2016, remains on Lasix drip, he is also on norepinephrine drip at 7.5 mcg/min, Dobutrex at 2.5 mcg/kg/m, Lasix 10 mg per hour drip. Chest x-ray is showing improvement. Urine output is excellent, patient diuresed over 3 L overnight, and he is negative balance of 2.5 L so far. Chest x-ray continues to show some pulmonary edema, but improved compared to yesterday. Even hemodynamics-lopes patient seems to be doing better blood pressure seems to be marginal with relatively low dose of norepinephrine and Dobutrex. Labs were reviewed he had a relatively normal CBC no evidence of leukocytosis. INR is 3.5. Electrolytes were reviewed and his bicarb is 19, BUN is 26 and creatinine is improving down to 1.63 from 1.83 yesterday. Patient was placed on high flow nasal cannula, 15 L, O2 saturations are in the low 90s. He definitely seems to be more comfortable, and he has been off BiPAP all this morning. Patient was reevaluated today on 07/06/2016, remains on Lasix drip at 10 mg per hour, norepinephrine drip at my 8 mcg/m, Dobutrex at 5 mcg/kg/m. Seems to be clinically better, however the chest x-ray is showing slight worsening of his interstitial edema. Patient is in negative balance, however I was expecting more negative balance today than I have noted on the chart. Patient failed his swallow evaluation, and it was felt that he may have some component of aspiration in addition to his interstitial edema. At any rate since the patient seems to be clinically better, I will continue with the same treatment plan including Lasix Dobutrex and norepinephrine. Patient tells me that he is feeling better compared to when he fell 2 days ago. Labs were reviewed WBC count is 9 hemoglobin is 11.5 *Normal BUN is down to 22 creatinine is down to 1.52. Reevaluated today on 07/07/2016, patient remains on Lasix drip, norepinephrine, and Dobutrex. Doses are basically about the same. Patient feels much better clinically, however chest x-ray continues to show interstitial edema bilaterally. Patient is negative about 1 L fluid balance over the last 24 hours. Labs showed WBC count of 6.8 hemoglobin is 11.3, INR is 5.0, electrolytes and renal profile are significantly improved. BUN is 24 creatinine is 1.30. Chest x-ray continues to show pulmonary edema. On 07/08/2016, patient remains on a Lasix drip, norepinephrine at 9 mcg/m, Dobutrex at 5 micrograms per kilo per minute. Patient is negative fluid balance of almost 8 L in the last 2-3 days. However his chest x-ray is not improving as much as expected considering the negative fluid balance. Hence I have recommended at least few doses of Solu-Medrol, on a trial basis for his abnormal chest x-ray. Clinically the patient is feeling much better, breathing a lot easier, even on physical examination does not sound as bad as expected considering the findings on the chest x-ray. Labs were reviewed CBC is normal INR is down to 3.9 electrolytes are normal renal profile is improving with BUN of 29 creatinine of 1.15. The patient is seen again today 07/09/2016 in follow-up in the intensive care unit. He is currently awake and alert in no acute distress. He remains on dobutamine at 5 mcg/kg/m, levophed at 3 mcg/m and Lasix drip at 10 mg per hour. He has a 0.9 normal saline at 10 mL per hour and insulin drip is currently on hold. His chest x-ray does show slight improvement in the congestive heart failure. He remains in a negative balance. He is still requiring 8 L of high flow nasal cannula to maintain O2 saturations in the 90s. Renal function stable and a creatinine of 1.13. The patient is seen again today 07/10/2016 in follow-up in the intensive care unit. He is sitting up in bed. He is awake and alert in no acute distress. He states he is doing better today as compared to yesterday. No worsening shortness of breath. He has a loose nonproductive cough. He does continue to require 6 L of high flow nasal cannula to maintain O2 saturations in the 90s. He remains on levo fed at 4 mcg/m, dobutamine at 2.5 mcg/kg/m, Lasix at 5 mg per hour, insulin at 4 units per hour and a 0.9 normal saline at 10 mL's per hour. He does remain in a negative balance. He is down another kilogram. Current creatinine 1.26. The patient is seen again today 07/13/2016 in follow-up in the intensive care unit. He remains awake and alert. He is requesting to go home. He knows his prognosis is quite poor. 3 of his 4 children are at the bedside and are in agreement. Arrangements are being made for home hospice. Presently, he denies any worsening shortness of breath cough or congestion. Maintaining good O2 saturations up to 100% on 2 L. He is currently afebrile. Objective - Vital Signs Vital signs: Vital Signs Temp 97.8 F 07/13/16 08:00 Pulse 76 07/13/16 08:00 Resp 24 07/13/16 08:00 BP 83/56 07/13/16 08:00 Pulse Ox 100 07/13/16 08:00 Intake & Output 07/12/16 07/13/16 07/13/16 18:59 06:59 18:59 Intake Total 200 60 80 Output Total 905 828 250 Balance -705 -768 -170 Weight 75.2 kg 77.8 kg Intake: IV 200 60 80 Sodium Chloride 0.9% 1, 200 60 80 000 ml @ 20 mls/hr IV . Q24H [facility] Rx#:[id number] Output: Urine 905 825 250 Stool 3 Other: Voiding Method Indwelling Catheter Indwelling Catheter Indwelling Catheter - Exam GENERAL EXAM: Alert, resting, in no distress at this point HEAD: Normocephalic. EYES: Normal reaction of pupils, equal size. NOSE: Clear with pink turbinates. THROAT: No erythema or exudates. NECK: No masses, mild JVD. CHEST: No chest wall deformity. LUNGS: Fine crackles at the bases, no rhonchi, no wheezes CVS: S1 and S2 normal with an audible murmur, regular rhythm. ABDOMEN: No hepatosplenomegaly, normal bowel sounds, no guarding or rigidity. SPINE: No scoliosis or deformity SKIN: No rashes CENTRAL NERVOUS SYSTEM: No focal deficits, tone is normal in all 4 extremities. Extremities: There is trace peripheral edema. No clubbing, no cyanosis. Peripheral pulses are intact. - Labs CBC & Chem 7: 07/13/16 04:26 07/13/16 04:26 Labs: Abnormal Lab Results - Last 24 Hours (Table) 07/12/16 07/12/16 07/12/16 Range/Units 11:55 16:50 20:59 RBC (4.30-5.90) m/uL Hgb (13.0-17.5) gm/dL Hct (39.0-53.0) % RDW (11.5-15.5) % Lymphocytes # (1.0-4.8) k/uL PT (9.0-12.0) sec Sodium (137-145) mmol/L BUN (9-20) mg/dL Creatinine (0.66-1.25) mg/dL Glucose (74-99) mg/dL POC Glucose (mg/dL) 129 H 135 H 259 H (75-99) mg/dL Calcium (8.4-10.2) mg/dL Total Protein (6.3-8.2) g/dL Albumin (3.5-5.0) g/dL 07/13/16 07/13/16 07/13/16 Range/Units 04:26 04:26 04:26 RBC 3.50 L (4.30-5.90) m/uL Hgb 10.5 L (13.0-17.5) gm/dL Hct 32.9 L (39.0-53.0) % RDW 15.9 H (11.5-15.5) % Lymphocytes # 0.7 L (1.0-4.8) k/uL PT 15.2 H (9.0-12.0) sec Sodium 133 L (137-145) mmol/L BUN 63 H (9-20) mg/dL Creatinine 1.30 H (0.66-1.25) mg/dL Glucose 56 L (74-99) mg/dL POC Glucose (mg/dL) (75-99) mg/dL Calcium 8.2 L (8.4-10.2) mg/dL Total Protein 4.1 L (6.3-8.2) g/dL Albumin 2.0 L (3.5-5.0) g/dL 07/13/16 07/13/16 Range/Units 06:01 06:45 RBC (4.30-5.90) m/uL Hgb (13.0-17.5) gm/dL Hct (39.0-53.0) % RDW (11.5-15.5) % Lymphocytes # (1.0-4.8) k/uL PT (9.0-12.0) sec Sodium (137-145) mmol/L BUN (9-20) mg/dL Creatinine (0.66-1.25) mg/dL Glucose (74-99) mg/dL POC Glucose (mg/dL) 68 L 138 H (75-99) mg/dL Calcium (8.4-10.2) mg/dL Total Protein (6.3-8.2) g/dL Albumin (3.5-5.0) g/dL Assessment and Plan Plan: Impression: #1 Acute exacerbation of systolic congestive heart failure requiring BiPAP support. Severe left ventricular global hypokinesia. #2 Acute hypoxic respiratory failure secondary to above. #3 Moderate to severe aortic stenosis. #4 Moderate pulmonary hypertension. #5 Atrial fibrillation, anticoagulated with warfarin. On maintenance amiodarone. Current INR 2.0. #6 Coronary artery disease with previous coronary artery bypass grafting. #7 Hypertension. #8 Hyperlipidemia. #9 Gastroesophageal reflux disease. #10 BPH, status post TURP in April 2016. #11 C. difficile toxicity. Currently on Questran, Flagyl and vancomycin. Plan: The patient was seen and evaluated by Dr. Ferrell. We did have a long discussion with the patient and his family. We will assist in arranging for home hospice for the patient as well as his and his family's desire. The plan is for home today. Time with Patient: Greater than 30
[2016-07-13 13:01] LABS: Glucose,Whole Blood 104 mg/dL (75-99)
[2016-07-13 13:17] VITALS: BP 78/45; PULSE 78; RESP 20; TEMP 98.2
--- NOTE | 2016-07-13 19:04 | P.DS ---
Providers Date of admission: 07/01/16 19:26 Attending physician: Tomasz Amaya MD Consults: 07/01/16 21:32 Consult Physician Routine Consulting Provider: Cooper Lozoya Consult Reason/Comments: chf Do you want consulting provider notified?: Yes 07/04/16 09:58 Consult Physician Routine Consulting Provider: Javier Nickerson Consult Reason/Comments: increased shortness of breah Do you want consulting provider notified?: Yes 07/06/16 16:56 Consult Physician Routine Consulting Provider: Darrian Ng Consult Reason/Comments: aortic stenosis Do you want consulting provider notified?: Yes Primary care physician: Stated None Hospital Course: HOSPITAL COURSEThis is an 85-year-old gentleman who was admitted to the intensive care unit with progressive worsening of difficulty in breathing. Patient apparently has had some diarrhea that has been ongoing, underwent a colonoscopy a few weeks prior to admission as well. Patient was admitted to the hospital with difficulty in breathing secondary to an acute exacerbation of congestive heart failure that is systolic in nature. Patient was also noted to have C difficile infection as well. Patient was noted to have significant worsening of his heart failure, was started on diuretics and thereafter improved slightly; however, worsened during the initial day of admission. Patient was placed on BiPAP, was also hypotensive, was started on Levophed and thereafter placed on an inotrope with dobutamine as well. Over the past 3 days patient has been in negative fluid balance. Today patient is currently on 3 L of supplemental oxygen. He is awake, alert, oriented x3. He states he is doing well. Denies having any additional complaints, including pain in his abdomen, chest pain, headaches or blurry vision. 07/11/16 doing well One Bm this am no other complaints reported denies fevers, chills, nausea, vomiting, chest pain. 07/12/2016 Currently blood pressures are suboptimal. After long discussion Levophed was discontinued this morning it was titrated up to 8 mics this morning Patient is awake states to be doing well patient apparently was slightly drowsy earlier There was some discussion about hospice. 07/13/16 After a discussion with the land inspector, pt didnot want to be readmitted to the hospital with palliative measures as goals of care pt opted hospice with home PHYSICAL EXAM: GENERAL APPEARANCE: Alert, oriented x3. Does not appear to be in distress. HEAD: Atraumatic, normocephalic. Pupils equal, round and reactive to light and accommodation. Neck is supple. No JVD. LUNGS: Trace crackles at the bases. Good air movement. No rhonchi or wheezing. HEART: S1, S2 heard. Regular rate and rhythm. A systolic murmur is appreciated. ABDOMEN: Soft, nontender. No organomegaly. NEUROLOGIC: No focal motor or sensory deficits. LOWER EXTREMITIES: Trace edema noted. Assessment and Plan Plan: ASSESSMENT AND PLAN: 1. Acute exacerbation of systolic heart failure causing acute hypoxic respiratory failure. 2. Moderate to severe aortic stenosis. 3. Moderate pulmonary hypertension. 4. Atrial fibrillation, chronic. 5. Coronary artery disease. 6. Hypertension. 7. Dyslipidemia. 8. Benign prostatic hypertrophy. 9. Clostridium difficile infection, currently on a course with vancomycin and metronidazole. PLAN: Digoxin, Discussed need for monitering Coumadin to continue: significant history of VTE had a long discussion with pt and family . Discharge home with hospice Midodrine 5mg tid is also started, this is a palliative measure, discussed arrythmia side effects time spent 45 min. Plan - Discharge Summary New Discharge Prescriptions: New Furosemide [Lasix] 40 mg PO BID@0900,1600 tab Insulin Detemir [Levemir] 10 unit SQ HS vial INSULIN LISPRO (humaLOG) [humaLOG (formulary)] 0 unit SQ ACHS vial Midodrine [ProAmatine] 5 mg PO AC-BID #30 tab MORPHINE ORAL SOLN 20mg/mL [Roxanol Oral Soln Conc 20MG/ML] 10 mg PO Q4H PRN #100 ml PRN Reason: Pain Digoxin [Digitek] 125 mcg PO DAILY #30 tab Warfarin [Coumadin] 3 mg PO DAILY #30 tab Continue Nitroglycerin Sl Tabs [Nitrostat] 0.4 mg SUBLINGUAL Q5M PRN PRN Reason: Chest Pain Omeprazole 20 mg PO DAILY Docusate [Colace] 100 mg PO BID #60 cap Amiodarone [Cordarone] 200 mg PO DAILY tab Aspirin EC [Ecotrin] 325 mg PO DAILY Melatonin 5 mg PO HS Discontinued Theophylline Anhydrous [Theophylline] 400 mg PO DAILY Ascorbic Acid [Vitamin C] 1,000 mg PO BID Isosorbide Mononitrate ER [Imdur] 60 mg PO DAILY Vitamin E (Dl,Tocopheryl Acet) [Vitamin E] 400 unit PO DAILY Lovastatin [Mevacor] 10 mg PO DAILY Cholecalciferol [Vitamin D3] 2,000 unit PO DAILY Allopurinol [Zyloprim] 100 mg PO BID Furosemide [Lasix] 40 mg PO BID@0900,1600 Warfarin Sodium [Coumadin] 6 mg PO WESA #0 Warfarin Sodium [Coumadin] 3 mg PO SUMOTUTHFR #0 Vitamin B Complex 1 cap PO DAILY Discharge Medication List Nitroglycerin Sl Tabs [Nitrostat] 0.4 mg SUBLINGUAL Q5M PRN 02/19/16 [History] Omeprazole 20 mg PO DAILY 02/19/16 [History] Docusate [Colace] 100 mg PO BID #60 cap 02/22/16 [Rx] Amiodarone [Cordarone] 200 mg PO DAILY tab 05/09/16 [Rx] Aspirin EC [Ecotrin] 325 mg PO DAILY 07/01/16 [History] Melatonin 5 mg PO HS 07/01/16 [History] Digoxin [Digitek] 125 mcg PO DAILY #30 tab 07/13/16 [Rx] Furosemide [Lasix] 40 mg PO BID@0900,1600 tab 07/13/16 [Rx] INSULIN LISPRO (humaLOG) [humaLOG (formulary)] 0 unit SQ ACHS vial 07/13/16 [Rx ] Insulin Detemir [Levemir] 10 unit SQ HS vial 07/13/16 [Rx] MORPHINE ORAL SOLN 20mg/mL [Roxanol Oral Soln Conc 20MG/ML] 10 mg PO Q4H PRN # 100 ml 07/13/16 [Rx] Midodrine [ProAmatine] 5 mg PO AC-BID #30 tab 07/13/16 [Rx] Warfarin [Coumadin] 3 mg PO DAILY #30 tab 07/13/16 [Rx] Patient Instructions/Handouts: Heart Failure (DC), Clostridium Difficile Infection (DC) Activity/Diet/Wound Care/Special Instructions: [facility] to meet you at home between 430-530. Medical equipment to be delivered at 4pm. Cardiac diet, yogurt three times daily. Discharge Disposition: HOME WITH HOSPICE
--- NOTE | 2016-07-15 14:48 | CDI ---
In responding to this query, please exercise your independent professional judgment. The [facility] Coding Staff and Clinical Documentation Specialists appreciate your assistance in clarifying documentation, maintaining compliance with coding guidelines, accurately documenting patients condition and capturing severity of illness. The fact that a question is asked does not imply that any particular answer is desired or expected. Communication forms are a method of clarifying documentation and are not made part of the Legal Health Record. Thank you in advance for your clarification. Last Revision, December 2014 Imtiaz Blackwood [address] [place] [address] Documentation Clarification Form Date: 07/15/2016 1:49:00 PM From: Alicia Simpson/Marquita Schumacher Admit Date: 07/01/2016 7:26:00 PM Patient Name: Emanuel Xiao Visit Number: [id number] Discharge Date: Dr. Tomasz Amaya Sepsis is documented in Dr. Nickerson's, Dr. Gary's and Dr. Irvin's progress notes from 07/05 - 07/09 but not documented in the discharge summary. Patient history/risk factors: Patient was admitted with C. diff colitis. Clinical Indicators: Shock Lab findings: WBCs 3.5 on admission, lactic acid 2.0 on 07/05 Vital Signs: T. 98.3 on admission up to 100.3 on 07/05, P 71 on admission and up to 110 on 07/05, R. 18 on admission up to 37 on 07/04, 91/54 on admission. Other Clinical Indicators: Acute respiratory failure, shock Treatment: IV Flagyl In your professional opinion, can you please clarify if Sepsis was Ruled In or Ruled Out and if it was present on admission? Other Unable to determine Please document in your progress notes and discharge summary in order to capture severity of illness and risk of mortality. Include clinical findings that support your diagnosis. FYI: Press F11 to launch patient chart. Place X here if this finding has no clinical significance, is not applicable or if you are not able to provide any additional documentation. CRISTA
== END 2016-07-13 15:02 | disposition hospice, home (50) | DRG 371 ==
LOC: 4MS4W 19:26 → 6ICU 07-04 12:21
PROVIDERS: ADMIT Internal Medicine; ATTEND Internal Medicine
PROC: 5A09557 Assistance with Respiratory Ventilation, Greater than 96 Consecutive Hours, Continuous Positive Airway Pressure (ICD-10-PCS; principal; 2016-07-04)
DX: A04.7 Enterocolitis due to Clostridium difficile (principal); J96.01 Acute respiratory failure with hypoxia; N17.0 Acute kidney failure with tubular necrosis; I50.23 Acute on chronic systolic (congestive) heart failure; R57.0 Cardiogenic shock; J69.0 Pneumonitis due to inhalation of food and vomit; I13.0 Hypertensive heart and chronic kidney disease with heart failure and stage 1 through stage 4 chronic kidney disease, or unspecified chronic kidney disease; N39.0 Urinary tract infection, site not specified; I48.0 Paroxysmal atrial fibrillation; E86.0 Dehydration; I27.2 Other secondary pulmonary hypertension; I08.3 Combined rheumatic disorders of mitral, aortic and tricuspid valves; E78.5 Hyperlipidemia, unspecified; E87.6 Hypokalemia; H91.90 Unspecified hearing loss, unspecified ear; I25.10 Atherosclerotic heart disease of native coronary artery without angina pectoris; I25.2 Old myocardial infarction; I25.5 Ischemic cardiomyopathy; I48.2 Chronic atrial fibrillation; K21.9 Gastro-esophageal reflux disease without esophagitis; K44.9 Diaphragmatic hernia without obstruction or gangrene; N18.3 Chronic kidney disease, stage 3 (moderate); N40.0 Benign prostatic hyperplasia without lower urinary tract symptoms; R79.1 Abnormal coagulation profile; T45.515A Adverse effect of anticoagulants, initial encounter; M19.90 Unspecified osteoarthritis, unspecified site; H54.7 Unspecified visual loss; Z79.01 Long term (current) use of anticoagulants; Z79.899 Other long term (current) drug therapy; Z79.82 Long term (current) use of aspirin; Z95.1 Presence of aortocoronary bypass graft; Z88.8 Allergy status to other drugs, medicaments and biological substances; Z66 Do not resuscitate
CPT/HCPCS: 71010; 80048; 80053; 80061; 81001; 82533; 83036; 83605; 83735; 83880; 84100; 84132; 84484; 85025; 85027; 85610; 87040; 87045; 87046; 87324; 87328; 87329; 89055; 93306; 94640; 94660